=== PATIENT | male | born 1945 | race Caucasian/White ===

== ENCOUNTER → 2016-12-01 | Outpatient (CLI) | payer OTHER ==
[~2016-12-01] MED LIST: ACET1TAB84 PO; ACET325T96 PO; ASPI325T45 PO; CLX20 PO; CMD5 PO; FINA5TAB4 PO; GABA-112 PO; GABA1CAP PO; LEVO50TA PO; LEVO50TA6 PO; MGNO400 PO; MTR500 PO; NYSS5 PO; POTA10CA28 PO; RMR15 PO; RXNS2.5 PO; TAMS0.4C38 PO; ULT50X PO
== END | disposition home or self-care (01) ==
LOC: C.LABSPEC 17:52
PROVIDERS: ATTEND Physician Assistant Medical
DX: R19.7 Diarrhea, unspecified (principal); I26.99 Other pulmonary embolism without acute cor pulmonale

== ENCOUNTER → 2016-12-09 | Outpatient (CLI) | payer OTHER ==
[2016-12-09 18:11] LABS: ALT/SGPT 16 U/L (12-78); AST/SGOT 26 U/L (15-37); BLOOD UREA NITROGEN 3 mg/dl (7-18); BUN/CREATININE RATIO 4.2 (10-20); CALCIUM 7.9 mg/dl (8.5-10.1); CARBON DIOXIDE 30 mmol/L (21-32); CHLORIDE 106 mmol/L (98-107); CREATININE 0.72 mg/dl (0.60-1.40); GLUCOSE 107 mg/dl (70-99); POTASSIUM 3.6 mmol/L (3.5-5.1); SODIUM 141 mmol/L (136-145)
[2016-12-09 18:18] LABS: ALB/GLOB RATIO 0.7 (0.9-2); ALKALINE PHOSPHATASE 104 U/L (45-117); CHOLESTEROL 115 mg/dl (0-200); CHOLESTEROL/HDL RATIO 1.8; HDL CHOLESTEROL 65 mg/dl; LDL CHOLESTEROL CALCULATED 35 mg/dl; PROSTATE SPECIFIC ANTIGEN 0.154 ng/ml (0.000-4.000); TRIGLYCERIDES 74 mg/dl (0-150); VERY LOW DENSITY LIPOPROT CALC 15 mg/dl
== END | disposition home or self-care (01) ==
LOC: C.LABBFT 15:52
PROVIDERS: ATTEND Internal Medicine
DX: Z11.59 Encounter for screening for other viral diseases (principal); E78.5 Hyperlipidemia, unspecified; Z12.5 Encounter for screening for malignant neoplasm of prostate; E87.6 Hypokalemia; E87.0 Hyperosmolality and hypernatremia; E83.42 Hypomagnesemia; I26.99 Other pulmonary embolism without acute cor pulmonale

== ENCOUNTER 2017-02-09 20:42 | Inpatient (IN) | payer OTHER ==
[~2017-02-09] VITALS: Ht 172.7 cm; Wt 43.6 kg
[~2017-02-09 20:42] MED LIST changes: -ACET325T96 PO; -ASPI325T45 PO; -CMD5 PO; -GABA1CAP PO; -LEVO50TA PO; -MGNO400 PO; -MTR500 PO; -NYSS5 PO; -RMR15 PO; -RXNS2.5 PO; -TAMS0.4C38 PO; -ULT50X PO
[2017-02-09] MEDS ORDERED: CLX20 PO (21:54)
[2017-02-09] MEDS ORDERED: SODIUM CHLORIDE 0.9% 500ML 500 ML IV STA (21:56)
[2017-02-09 22:11] LABS: BASO % 0.2 %; BASO ABS # 0.02 K/uL (0-0.2); COMPLETE YES; EOS % 0.8 %; HEMATOCRIT 46.3 % (42-52); IG% 0.3 %; LYMPH % 11.1 %; LYMPH ABS # 1.01 K/uL (1.2-3.4); MEAN CELL VOLUME 101.3 fL (80-100); MEAN CORPUSCULAR HEMOGLOBIN 33.9 pg (25-34); MEAN CORPUSCULAR HGB CONC 33.5 g/dl (32-36); MEAN PLATELET VOLUME 10.2 fL (7.4-10.4); MONO % 7.6 %; PLATELET COUNT 214 K/uL (130-400); RED BLOOD COUNT 4.57 M/uL (4.7-6.1); WHITE BLOOD COUNT 9.13 K/uL (4.8-10.8)
[2017-02-09 22:19] LABS: ISTAT CARBON DIOXIDE > 40 mEq/l (24-31); ISTAT CHLORIDE 88 mEq/L (101-112); ISTAT CREATININE 0.8 mg/dl (0.6-1.3); ISTAT HEMATOCRIT 47 % (42-52); ISTAT IONIZED CALCIUM 1.05 mmol/l (1.12-1.32); ISTAT SODIUM 138 mEq/L (135-144)
[2017-02-09] MEDS ORDERED: ALBUT/IPRATROP 3MG/0.5MG NEB 3 ML VIAL INH ONE (22:30)
[2017-02-09] MEDS ORDERED: OPTIRAY 320 IV PRN (22:45)
--- NOTE | 2017-02-09 22:49 | DIAGNOSTIC IMAGING REPORT ---
CHEST ONE VIEW PORTABLE HISTORY: Atypical chest pain. COMPARISON: Chest 01/20/2016. FINDINGS: Emphysema. Right calcified paratracheal lymph node is again noted. No new focal lung consolidations to suggest pneumonia. No evidence for pulmonary edema. No pleural effusions. No pneumothorax. The heart is normal in size. Calcified granulomas within the lower lobes. IMPRESSION: No significant change compared to the prior study. No acute process. Electronically signed by: Vasile Garza M.D. 02/09/2017 10:47 PM Dictated Date/Time: 02/09/2017 10:46 PM
[2017-02-09 22:55] LABS: ALKALINE PHOSPHATASE 131 U/L (45-117); ALT/SGPT 14 U/L (12-78); BLOOD UREA NITROGEN 6 mg/dl (7-18); BUN/CREATININE RATIO 7.1 (10-20); CALCIUM 8.5 mg/dl (8.5-10.1); CARBON DIOXIDE 36 mmol/L (21-32); CHLORIDE 94 mmol/L (98-107); CREATININE 0.79 mg/dl (0.60-1.40); GLUCOSE 92 mg/dl (70-99); THYROID STIMULATING HORMONE 0.108 uIu/ml (0.300-4.500)
--- NOTE | 2017-02-09 23:03 | DIAGNOSTIC IMAGING REPORT ---
HEAD CT NONCONTRAST CT DOSE: 1074.96 mGy.cm HISTORY: Pt c/o multiple falls TECHNIQUE: Multiaxial CT images of the head were performed without the use of intravenous contrast. Automated exposure control was utilized for this study. Comparison: Head CT 03/19/2010. Findings: The paranasal sinuses and mastoid air cells are clear. The calvarium and skull base are intact. There is no mass, hematoma, midline shift, acute infarct. White matter hypodensity is nonspecific but suggestive of microvascular ischemic change. The ventricles and sulci demonstrate mild age-related involutional changes. 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 Impression: No significant change compared to the prior study. No acute intracranial abnormality. Electronically signed by: Vasile Garza M.D. 02/09/2017 11:01 PM Dictated Date/Time: 02/09/2017 10:57 PM
[2017-02-09 23:08] LABS: SODIUM 140 mmol/L (136-145)
[2017-02-09 23:13] LABS: INR 1.1 (0.9-1.1)
[2017-02-09 23:25] LABS: POTASSIUM 2.1 mmol/L (3.5-5.1)
[2017-02-09 23:30] LABS: AST/SGOT 48 U/L (15-37); CKMB/CK RATIO 0.4 (0-3.0)
[2017-02-09] MEDS ORDERED: SODIUM CHLORIDE 0.9% 1000ML 1,000 ML IV STA (23:30)
[2017-02-09 23:38] VITALS: PULSE 63; O2SAT 97
[2017-02-09] MEDS ORDERED: ONDANSETRON INJ 2 MG/ML 2 ML VIAL IV STA (23:39)
[2017-02-09] MEDS ORDERED: HYDROmorphone INJ 0.5 MG/0.5 ML SYR IV STA (23:39)
--- NOTE | 2017-02-09 23:40 | EMERGENCY ROOM VISIT NOTE ---
History Report prepared by Domonique: Kenisha Dubose Under the Supervision of: Dr. Timothy Pablo M.D. First contact with patient: 21:51 Chief Complaint: FALL Stated Complaint: FALL, WEAKNESS History of Present Illness The patient is a 71 year old male who presents to the Emergency Room with complaints of multiple episodes of falling occurring [employer]. The patient has a left AKA. He does not wear a prosthetic and is typically able to transfer himself from his wheelchair without difficulty. This morning the patient went to transfer from his bed to his wheelchair. He became weak and fell, landing on his buttocks. He crawled to the bathroom and the same thing happened in the bathroom. He states that he was just feeling weak. The patient was able to crawl from the bathroom to the hallway. His son found him lying in the hallway 8 hours later. The patient denies any injury from the falls. He denies hitting his head or LOC. He was brought to the ED by ambulance. Per EMS, the patient was having gel-like diarrhea. He has a history of C-diff. The patient has also been incontinent of urine. He denies abdominal pain and nausea. 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 A total of 10 systems reviewed and were otherwise negative. Past Medical & Surgical Medical Problems: (1) History of above knee amputation (2) Rhabdomyolysis (3) Thyroid cancer Surgical Problems: (1) H/O thyroidectomy Family History No pertinent family history stated Social History Smoking Status: Current Every Day Smoker Alcohol Use: occasionally Drug Use: none Marital Status: single Occupation Status: disabled Current/Historical Medications Scheduled Citalopram (Citalopram Hydrobromide), 20 MG PO QAM Gabapentin (Neurontin), 200 MG PO TID Levothyroxine Sodium (Levothyroxine Sodium), 50 MCG PO QAM Scheduled PRN Acetaminophen (Tylenol Arthritis Ext Rel), 650 MG PO BID PRN for Pain Allergies Coded Allergies: No Known Allergies (Verified , 01/07/17) Physical Exam Vital Signs Date Time Temp Pulse Resp B/P (MAP) Pulse Ox O2 Delivery O2 Flow Rate FiO2 02/10/17 00:59 75 02/10/17 00:24 62 24 100 Room Air 02/09/17 23:38 63 16 97 Room Air 02/09/17 23:24 63 21 94 Room Air 02/09/17 23:19 64 20 138/111 98 Room Air 02/09/17 22:30 65 18 140/63 94 Room Air 02/09/17 21:10 95 Room Air 02/09/17 21:09 66 02/09/17 21:00 36.6 64 20 131/79 94 Room Air Physical Exam GENERAL: Patient is a healthy-appearing well-nourished elderly male. HEAD: Normocephalic atraumatic EYES: Ocular movements intact pupils equal and react to light OROPHARYNX mucous membranes are moist no exudates present no erythema or edema present NECK: Supple no nuchal rigidity CHEST: Good equal expansion LUNGS: Clear and equal to auscultation CARDIAC: Normal S1 and S2 ABDOMEN: Soft nontender no guarding BACK: No CVA tenderness EXTREMITIES: AKA on the left. No pain upon palpation normal muscle strength in all groups no clubbing cyanosis or edema NEURO: Patient is following commands and answering questions appropriately. Alert and oriented x3 Cranial Nerves 2-12 grossly intact Medical Decision & Procedures ER Provider Diagnostic Interpretation: Radiology results as stated below per my review and radiologist interpretation: CHEST ONE VIEW PORTABLE HISTORY: Atypical chest pain. COMPARISON: Chest 01/20/2016. FINDINGS: Emphysema. Right calcified paratracheal lymph node is again noted. No new focal lung consolidations to suggest pneumonia. No evidence for pulmonary edema. No pleural effusions. No pneumothorax. The heart is normal in size. Calcified granulomas within the lower lobes. IMPRESSION: No significant change compared to the prior study. No acute process. Electronically signed by: Vasile Garza M.D. 02/09/2017 10:47 PM Dictated Date/Time: 02/09/2017 10:[address] CT DOSE: 1074.96 mGy.cm HISTORY: Pt c/o multiple falls TECHNIQUE: Multiaxial CT images of the head were performed without the use of intravenous contrast. Automated exposure control was utilized for this study. Comparison: Head CT 03/19/2010. Findings: The paranasal sinuses and mastoid air cells are clear. The calvarium and skull base are intact. There is no mass, hematoma, midline shift, acute infarct. White matter hypodensity is nonspecific but suggestive of microvascular ischemic change. The ventricles and sulci demonstrate mild age-related involutional changes. 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 Impression: No significant change compared to the prior study. No acute intracranial abnormality. Electronically signed by: Vasile Garza M.D. 02/09/2017 11:01 PM Dictated Date/Time: 02/09/2017 10:57 PM CHEST CTA for PULMONARY ARTERIES CT DOSE: HISTORY: Chest pain dyspnea TECHNIQUE: Multiaxial CT images of the chest were performed following the intravenous administration of contrast to evaluate the pulmonary arteries. Maximal intensity projection images were also obtained. COMPARISON STUDY: None. FINDINGS: There is a normal caliber thoracic aorta with no evidence for dissection. There is no evidence for pulmonary embolus. No pleural effusions. No pneumothorax. The liver and spleen are unremarkable. No mediastinal or hilar lymphadenopathy. The central airways are patent. The lungs are clear. Emphysematous change. Chronic granulomatous change. Moderate esophageal wall thickening with moderate debris within the lumen of the esophagus. IMPRESSION: 1. No evidence for pulmonary embolus. 2. Emphysematous change with chronic diffuse fibrotic change. 3. Moderate wall thickening of the esophagus with retained debris. Electronically signed by: Nirav Colón M.D. 02/10/2017 7:12 AM Dictated Date/Time: 02/10/2017 7:[address] SCAN OF THE CERVICAL SPINE CLINICAL HISTORY: Neck pain. COMPARISON STUDY: No priors. TECHNIQUE: CT scan of the cervical spine is performed from the skull base to the upper thoracic spine. Images are reviewed in the axial, sagittal, and coronal planes. IV contrast was not administered for this examination. CT DOSE: 445.77 mGy.cm FINDINGS: Skeletal structures: The skeletal structures are osteopenic. There is no evidence of fracture or subluxation involving the cervical spine. Vertebral body height is maintained. There is minimal anterolisthesis at C2-C3. Alignment is otherwise preserved. There is straightening of the cervical lordosis with reversal centered at C4-C5. The odontoid process and lateral masses are intact. The atlantoaxial articulation is preserved noting mild productive degenerative change. The spinous processes appear intact. Anterior osteophytes are seen from C3 through C7. There is moderate multilevel cervical spondylosis. Uncovertebral and facet arthropathy contribute to neural foraminal narrowing at most levels. This is greatest on the right at C3-C4 and C6-C7, on the left at C5-C6 and C6-C7. Intervertebral discs: There is moderate disc space narrowing seen at C3-C4, C5-C6 and C6-C7. Central canal: Small posterior disc osteophyte complexes at C3-C4, C5-C6, and C6-C7 likely contributes to multilevel acquired compromise of the central canal. Soft tissues: The prevertebral and paraspinous soft tissues are within normal limits. Cerumen is noted in the left external auditory canal. There is advanced atherosclerotic calcification of the carotid bulbs. Calvarium: The visualized calvarium at the skull base appears intact. Brain parenchyma: Partially visualized brain parenchyma the skull base is within normal limits. Sinuses and mastoids: The visualized paranasal sinuses are clear. The mastoid air cells are well pneumatized. Lung apices: Advanced emphysema and biapical scarring is present at the lung apices. Secretions/debris fills the visualized esophagus. IMPRESSION: 1. There is no evidence of fracture or subluxation involving the cervical spine. 2. Osteopenia and spondylotic change as above. 3. Advanced emphysema. Electronically signed by: Tony Hilliard M.D. 02/10/2017 7:17 AM Dictated Date/Time: 02/10/2017 7:13 AM Laboratory Results Test 02/09/17 21:23 02/09/17 22:07 02/09/17 22:23 02/09/17 22:34 Total Bilirubin 0.4 mg/dl (0.2-1) Direct Bilirubin < 0.1 mg/dl (0-0.2) Aspartate Amino Transf (AST/SGOT) 48 U/L (15-37) Alanine Aminotransferase (ALT/SGPT) 14 U/L (12-78) Alkaline Phosphatase 131 U/L (45-117) Creatine Kinase MB 5.7 ng/ml (0.5-3.6) Creatine Kinase MB Ratio 0.4 (0-3.0) Troponin I 0.023 ng/ml (0-0.045) Total Protein 6.8 gm/dl (6.4-8.2) Albumin 1.9 gm/dl (3.4-5.0) Thyroid Stimulating Hormone (TSH) 0.108 uIu/ml (0.300-4.500) Free Thyroxine 1.52 ng/dl (0.80-1.60) Bedside Hemoglobin 16.0 g/dl (14.0-18.0) Bedside Hematocrit 47 % (42-52) Bedside Sodium 138 mEq/L (135-144) Bedside Potassium 2.7 mEq/L (3.3-5.0) Bedside Chloride 88 mEq/L (101-112) Bedside Total CO2 > 40 mEq/l (24-31) Bedside Blood Urea Nitrogen 5 mg/dl (7-18) Bedside Creatinine 0.8 mg/dl (0.6-1.3) Bedside Glucose (other) 88 mg/dl (70-99) Bedside Ionized Calcium (Joao) 1.05 mmol/l (1.12-1.32) Bedside Glucose 118 mg/dl (70-99) Prothrombin Time 12.0 SECONDS (9.0-12.0) Prothromb Time International Ratio 1.1 (0.9-1.1) Test 02/10/17 00:42 Arterial Blood pH 7.34 (7.35-7.45) Arterial Blood Partial Pressure CO2 56 mmHg (35-46) Arterial Blood Partial Pressure O2 249 mm/Hg (80-95) Arterial Blood HCO3 29 mmol/L (19-24) Arterial Blood Oxygen Saturation 99.7 % (90-95) Arterial Blood Base Excess 2.5 mEq/L (-9-1.8) Arterial Blood Gas Delivery 8 L Abhinav Test POS (POS) Labs reviewed by ED physician. Medications Administered Medications (Trade) Dose Ordered Sig/Sebastian Route Start Time Stop Time Status Last Admin Dose Admin Sodium Chloride 500 ml @ 999 mls/hr Q31M STAT IV 02/09/17 21:56 02/09/17 22:26 DC 02/09/17 22:09 999 MLS/HR Albuterol/ Ipratropium (Duoneb) 12 ml ONE ONCE INH 02/09/17 22:30 02/09/17 22:31 DC 02/09/17 23:38 12 ML Sodium Chloride 1,000 ml @ 999 mls/hr Q1H1M STAT IV 02/09/17 23:30 02/10/17 00:30 DC 02/09/17 00:20 999 MLS/HR Hydromorphone HCl (Dilaudid Inj) 0.5 mg NOW STAT IV 02/09/17 23:39 6/20/17 23:40 DC 02/10/17 00:14 0.5 MG Ondansetron HCl (Zofran Inj) 4 mg NOW STAT IV 02/09/17 23:39 02/09/17 23:41 DC 02/10/17 00:14 4 MG Metoclopramide HCl (Reglan Inj) 10 mg NOW STAT IV 02/10/17 00:42 02/10/17 00:44 DC 02/10/17 02:11 10 MG Magnesium Sulfate (Magnesium Sulfate) 1 gm NOW STAT IV 02/10/17 00:57 02/10/17 00:58 DC 02/10/17 02:11 1 GM ECG Indication: weakness Rate (beats per minute): 66 Rhythm: sinus rhythm Findings: PVC, no acute ischemic change, other (old anterior septal infarct) ED Course 2150: Past medical records reviewed. The patient was evaluated in room B7. A complete history and physical examination was performed. 2156: NSS 500 ml @ 999 mls/hr IV 2230: DuoNeb 12 ml INH 2317: Potassium Chloride 80 meq PO 2330: NSS 1000 ml @ 999 mls/hr IV 2339: Zofran 4 mg IV, Dilaudid 0.5 mg IV 0042: Reglan 10 mg IV, Potassium Chloride 80 meq PO 0057: Magnesium sulfate 1 gm IV 0058: I reassessed the patient at this time and updated him on the results. I answered all pertaining questions that he had and he is in agreement with the treatment plan. 0115: I spoke with Dr. Baron. We discussed the patient's case. The patient will be evaluated by the [facility] for further management. Medical Decision Differential diagnosis: Etiologies such as metabolic, infection, hypo/hyperglycemia, electrolyte abnormalities, cardiac sources, intracerebral event, toxicologic, neurologic, as well as others were entertained. Medication Reconciliation: I attest that I have personally reviewed the patient' s current medication list. Blood Pressure Screening: Patient was found to have an elevated blood pressure and was referred to their primary care doctor for recheck and further treatment. This is a 71-year-old male who presents emergency department complaining of multiple falls at home. The patient appears to be a mild rhabdomyolysis. He was started on IV fluids and given normal saline bolus. I did talk to the hospitalist who agreed to admit the patient. Patient and family were in agreement with the treatment plan. Consults Time Called: 100 Consulting Physician: Dr. Baron Returned Call: [address] Baron. We discussed the patient's case. The patient will be evaluated by the [facility] for further management. Impression Primary Impression: Rhabdomyolysis Scribe Attestation The scribe's documentation has been prepared under my direction and personally reviewed by me in its entirety. I confirm that the note above accurately reflects all work, treatment, procedures, and medical decision making performed by me. Departure Information Dispostion Being Evaluated By Hospitalist Referrals James Magallon M.D. (PCP) Patient Instructions My [facility] Problem Qualifiers Primary Impression: Rhabdomyolysis Rhabdomyolysis type: non-traumatic Qualified Codes: M62.82 - Rhabdomyolysis
[2017-02-10] VITALS (7 sets, daily range): BP systolic 97–152; BP diastolic 55–72; PULSE 52–68; TEMP 36.4–36.7; O2SAT 95–100; Ht 172.7 cm; Wt 43.6 kg
[2017-02-10] MEDS: POTASSIUM CHLORIDE 20 MEQ/15 ML UDC PO STA ×2 (00:12→00:53)
[2017-02-10] MEDS ORDERED: POTASSIUM CHLORIDE 20 MEQ/15 ML UDC PO STA (00:42)
[2017-02-10] MEDS ORDERED: METOCLOPRAMIDE HCL INJ 5 MG/ML 2 ML VIAL IV STA (00:42)
[2017-02-10] MEDS ORDERED: MAGNESIUM SULFATE 1GM / D5W 1 GM BAG IV STA (00:57)
[2017-02-10 01:04] LABS: ARTERIAL BLD GAS O2 SATURATION 99.7 % (90-95); ARTERIAL BLOOD GAS BASE EXCESS 2.5 mEq/L (-9-1.8); ARTERIAL BLOOD GAS HCO3 29 mmol/L (19-24); ARTERIAL BLOOD GAS PO2 249 mm/Hg (80-95); ARTERIAL BLOOD GAS pH 7.34 (7.35-7.45)
[2017-02-10 01:05] LABS: ALLEN TEST POS (POS); O2 ADMINISTRATION 8 L
[2017-02-10] MEDS ORDERED: ONDANSETRON INJ 2 MG/ML 2 ML VIAL IV PRN (02:00)
[2017-02-10] MEDS ORDERED: MAGNESIUM HYDROXIDE SUSP 30 ML UDC PO PRN (02:00)
[2017-02-10] MEDS ORDERED: POTASSIUM CHLORIDE INJ 40 MEQ in SODIUM CHLORIDE 0.9% 1000ML 1,000 ML IV SCH (02:00)
[2017-02-10] MEDS ORDERED: ALUMINUM/MAGNESIUM/SIMETH (MAALOX MAX) 30 ML UDC PO PRN (02:00)
[2017-02-10] MEDS ORDERED: POLYETHYLENE (MIRALAX) 17 GM PACK PO PRN (02:00)
[2017-02-10] MEDS ORDERED: NON-FORMULARY MEDICATION (Acetaminophen (Tylenol Arthritis Ext Rel) 650 MG) PO PRN (02:00)
[2017-02-10] MEDS ORDERED: POTASSIUM CHLORIDE 10 MEQ / 100ML WTR IV ONE (02:32)
--- NOTE | 2017-02-10 03:27 | History and Physical ---
History & Physical Date & Time of Service: Feb 10, 2017 at 02:45 Chief Complaint: Fall, Weakness Primary Care Physician: James Magallon M.D. History of Present Illness Source: patient, family 71 y/o M Hx PAD - L AKA, recurrent C diff, COPD, DVT/PE, BPH, thyroid CA. Pt had fallen on the ground when transferring to the toilet at home and was found 8 hours later by his son. He reports that he has had recurrent C-diff and resultant diarrhea for over one year. EMS reported that he may have had melanotic stool as well. The pt is a poor historian, he is a chronic heavy smoker and may be noncompliant with his medications at times. He denied having pain anywhere, denied SOB, CP, N/V or fevers. He has difficulty urinating recently, possibly due to noncompliance with finasteride over the past few weeks. On arrival to the ER he was hypoxic with a saturation in the mid 80s and hypercarbic on ABG as well. Labs show severe hypokalemia and mild rhabdomyolysis. A CTA was obtained considering his history of PE. This did not reveal a PE but was consistent with COPD. Past Medical/Surgical History 1) COPD - denies an official diagnosis 2) recurrent C-diff since 01/05 3) Thyroid CA 4) PAD - L AKA 2012 - required additional amputation in 2013 as wound would not heal 5) PE/DVT 2015 6) BPH with history of retention 7) Depression Surgical Problems: (1) H/O thyroidectomy - may have sustained vocal cord or laryngeal nerve damage as he is chronically horse since surgery Status: Resolved 2) L AKA and revision - 2012,2013 Family History No pertinent family history stated States both parents from complications of diabetes Social History Smokes up to 2 packs daily > 50 years, 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 Smoking Status: Current Every Day Smoker Drug Use: none Marital Status: single Housing status: lives alone Occupational Status: disabled Immunizations History of Influenza Vaccine: Yes Influenza Vaccine Date: Oct 07, 2009 History of Tetanus Vaccine?: Yes Tetanus Immunization Date: Mar 22, 2006 History of Pneumococcal: No History of Hepatitis B Vaccine: No Multi-Drug Resistant Organisms History of MDRO: No Allergies Coded Allergies: No Known Allergies (Verified , 01/07/17) Home Medications Scheduled Citalopram (Citalopram Hydrobromide), 20 MG PO QAM Gabapentin (Neurontin), 200 MG PO TID Levothyroxine Sodium (Levothyroxine Sodium), 50 MCG PO QAM Scheduled PRN Acetaminophen (Tylenol Arthritis Ext Rel), 650 MG PO BID PRN for Pain Review of Systems Constitutional: No fever, No chills, No sweats Eyes: No worsening of vision, No eye pain ENT: No hearing loss, No unusual epistaxis, No nasal symptoms Respiratory: No cough, No sputum, No wheezing, No shortness of breath Cardiovascular: No chest pain, No orthopnea, No PND Abdomen: + diarrhea, No pain, No nausea, No vomiting Musculoskeletal: No joint pain, No muscle pain Genitourinary - Male: + dysuria, + urinary hesitancy, + urinary retention, No hematuria Neurologic: No memory loss, No paralysis, No weakness Psychiatric: + depression symptoms Endocrine: No fatigue Hematologic / Lymphatic: No abnormal bleeding/bruising Integumentary: No rash Allergic / Immunologic: No environmental allergies Physical Exam Vital Signs Date Time Temp Pulse Resp B/P (MAP) Pulse Ox O2 Delivery O2 Flow Rate FiO2 02/10/17 00:59 75 02/10/17 00:24 62 24 100 Room Air 02/09/17 23:38 63 16 97 Room Air 02/09/17 23:24 63 21 94 Room Air 02/09/17 23:19 64 20 138/111 98 Room Air 02/09/17 22:30 65 18 140/63 94 Room Air 02/09/17 21:10 95 Room Air 02/09/17 21:09 66 02/09/17 21:00 36.6 64 20 131/79 94 Room Air General Appearance: + pertinent finding (Cachectic appearing elderly male - no distress) Head: normocephalic, atraumatic Eyes: normal inspection ENT: normal ENT inspection, pharynx normal Neck: supple, no JVD Respiratory/Chest: chest non-tender, + decreased breath sounds (very poor b/l air entry - no audible crackles or wheezinf) Cardiovascular: regular rate, rhythm, no edema, no gallop Abdomen/GI: normal bowel sounds, non tender, soft Back: normal inspection, no CVA tenderness Extremities/Musculoskelatal: + pertinent finding (L AKA - stasis changes of RLE - no edema) 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, no motor/sensory deficits, alert, oriented x 3 Skin: warm/dry, no rash Diagnostics Laboratory Results Results Past 24 Hours Test 02/09/17 21:23 02/09/17 22:07 02/09/17 22:23 02/09/17 22:34 Range/Units White Blood Count 9.13 4.8-10.8 K/uL Red Blood Count 4.57 4.7-6.1 M/uL Hemoglobin 15.5 14.0-18.0 g/dL Hematocrit 46.3 42-52 % Mean Corpuscular Volume 101.3 80-100 fL Mean Corpuscular Hemoglobin 33.9 25-34 pg Mean Corpuscular Hemoglobin Concent 33.5 32-36 g/dl Platelet Count 214 130-400 K/uL Mean Platelet Volume 10.2 7.4-10.4 fL Neutrophils (%) (Auto) 80.0 % Lymphocytes (%) (Auto) 11.1 % Monocytes (%) (Auto) 7.6 % Eosinophils (%) (Auto) 0.8 % Basophils (%) (Auto) 0.2 % Neutrophils # (Auto) 7.31 1.4-6.5 K/uL Lymphocytes # (Auto) 1.01 1.2-3.4 K/uL Monocytes # (Auto) 0.69 0.11-0.59 K/uL Eosinophils # (Auto) 0.07 0-0.5 K/uL Basophils # (Auto) 0.02 0-0.2 K/uL RDW Standard Deviation 54.5 36.4-46.3 fL RDW Coefficient of Variation 14.6 11.5-14.5 % Immature Granulocyte % (Auto) 0.3 % Immature Granulocyte # (Auto) 0.03 0.00-0.02 K/uL Sodium Level 140 136-145 mmol/L Potassium Level 2.1 3.5-5.1 mmol/L Chloride Level 94 98-107 mmol/L Carbon Dioxide Level 36 21-32 mmol/L Anion Gap 9.0 13.0 16-25 mmol/L Blood Urea Nitrogen 6 7-18 mg/dl Creatinine 0.79 0.60-1.40 mg/dl Est Creatinine Clear Calc Drug Dose 51.9 ml/min Estimated GFR () 105.4 Estimated GFR (Non- 91.0 BUN/Creatinine Ratio 7.1 10-20 Random Glucose 92 70-99 mg/dl Calcium Level 8.5 8.5-10.1 mg/dl Total Bilirubin 0.4 0.2-1 mg/dl Direct Bilirubin < 0.1 0-0.2 mg/dl Aspartate Amino Transf (AST/SGOT) 48 15-37 U/L Alanine Aminotransferase (ALT/SGPT) 14 12-78 U/L Alkaline Phosphatase 131 45-117 U/L Total Creatine Kinase 1575 39-308 U/L Creatine Kinase MB 5.7 0.5-3.6 ng/ml Creatine Kinase MB Ratio 0.4 0-3.0 Troponin I 0.023 0-0.045 ng/ml Total Protein 6.8 6.4-8.2 gm/dl Albumin 1.9 3.4-5.0 gm/dl Thyroid Stimulating Hormone (TSH) 0.108 0.300-4.500 uIu/ml Bedside Hemoglobin 16.0 14.0-18.0 g/dl Bedside Hematocrit 47 42-52 % Bedside Sodium 138 135-144 mEq/L Bedside Potassium 2.7 3.3-5.0 mEq/L Bedside Chloride 88 101-112 mEq/L Bedside Total CO2 > 40 24-31 mEq/l Bedside Blood Urea Nitrogen 5 7-18 mg/dl Bedside Creatinine 0.8 0.6-1.3 mg/dl Bedside Glucose (other) 88 70-99 mg/dl Bedside Ionized Calcium (Joao) 1.05 1.12-1.32 mmol/l Bedside Glucose 118 70-99 mg/dl Prothrombin Time 12.0 9.0-12.0 SECONDS Prothromb Time International Ratio 1.1 0.9-1.1 Test 02/10/17 00:42 02/10/17 01:52 Range/Units Arterial Blood pH 7.34 7.35-7.45 Arterial Blood Partial Pressure CO2 56 35-46 mmHg Arterial Blood Partial Pressure O2 249 80-95 mm/Hg Arterial Blood HCO3 29 19-24 mmol/L Arterial Blood Oxygen Saturation 99.7 90-95 % Arterial Blood Base Excess 2.5 -9-1.8 mEq/L Arterial Blood Gas Delivery 8 L Abhinav Test POS POS Diagnostic Radiology CTA Emphysema - most prominent in upper lobes Evidence of prior granulomatous disease affecting lungs, liver, spleen Heterogenous, hypodense liver EKG Consistent with severe Hypokalemia - ST sagging/depressions and U waves Impression Assessment and Plan 71 y/o M Hx PAD - L AKA, recurrent C diff, COPD, DVT/PE, BPH, thyroid CA. Pt had fallen on the ground when transferring to the toilet at home and was found 8 hours later by his son. He reports that he has had recurrent C diff and resultant diarrhea for over one year. EMS reported that he may have had melanotic stool as well. He denies having pain anywhere, denied SOB, CP, N/V or fevers. He has difficulty urinating recently, possibly due to noncompliance with finasteride over the past few weeks. On arrival to the ER he was hypoxic with a saturation in the mid 80s and hypercarbic on ABG as well. Labs show severe hypokalemia and mild rhabdomyolysis. A CTA was consistent with COPD. 1) Severe hypokalemia - receiving K and Mg - will trend BMP and monitor pt on telemetry - this is likley the result of his diarrhea and he should remain on K supplements unti this resolves 2) Hypoxia and hypercarbia - has no complaints of SOB so that this is likely chronic - we will consult pulmonology for untreated COPD - he will likely qualify for home 02. We will start B-agonists once his K is corrected. There is no evidence of current exacerbation although we cannot accurately gauge his baseline. He is placed on an 02 protocol. 3) C diff and chronic diarrhea - recently completed a 10 day course of vanc - pending a PCR he has been placed on both Flagyl and Vanc - GI consulted due to reported Melena as well as unremitting diarrhea. 4) Rhabdo - due to fall and immobility - aggressive IVF - trend CK 5) Hypothyroidism - TSH is low - we will check a T3,4 and cont current Synthroid dose in interim. 6) Urinary retention - Pappas placed - Finasteride restarted 7) We could not accurately gauge his ETOH intake - his son stated that he drinks nightly - pt denied - provided with folate and thiamine - watch for signs of withdrawal - CT may represent early cirrhosis. 8) Cachexia - low albumin - moderate protein malnutrition - supplements provided Full code - SCDs only considering reported melena Total time for this admit including review of meds, labs, EKG, CT - discussion with pt , son and ER attending - 48 min Level of Care Telemetry Resuscitation Status FULL RESUSCITATION VTE Prophylaxis VTE Risk Assessment Done? Y/N: Yes Risk Level: Moderate Given or contraindicated: SCD's
[2017-02-10 03:37] LABS: URINE APPEARANCE CLEAR (CLEAR); URINE BILIRUBIN NEG (NEG); URINE COLOR DK YELLOW; URINE NITRITE NEG (NEG); URINE PH 6.5 (4.5-7.5); URINE SPECIFIC GRAVITY 1.026 (1.000-1.030); UROBILINOGEN NEG (NEG)
[2017-02-10 03:50] LABS: MANUAL MICROSCOPIC REQUIRED? NO; REVIEW REQ? NO
[2017-02-10] MEDS: D5NSS + 20MEQ KCL 1,000 ML IV SCH ×3 (05:17→22:12)
[2017-02-10] MEDS: METRONIDAZOLE / NSS 500 MG in PREMIXED NSS 100 ML IV SCH ×3 (05:17→22:12)
[2017-02-10] MEDS: POTASSIUM CHLR 10 MEQ / WTR 10 MEQ in PREMIXED WATER 100 ML IV SCH ×10 (05:17→21:53)
[2017-02-10] MEDS ORDERED: HEPARIN SOD 5000 UNIT/0.5 ML CARP SQ SCH (06:00)
[2017-02-10] MEDS ORDERED: LEVOTHYROXINE 50 MCG TAB PO SCH (06:30)
--- NOTE | 2017-02-10 07:14 | DIAGNOSTIC IMAGING REPORT ---
CHEST CTA for PULMONARY ARTERIES CT DOSE: HISTORY: Chest pain dyspnea TECHNIQUE: Multiaxial CT images of the chest were performed following the intravenous administration of contrast to evaluate the pulmonary arteries. Maximal intensity projection images were also obtained. COMPARISON STUDY: None. FINDINGS: There is a normal caliber thoracic aorta with no evidence for dissection. There is no evidence for pulmonary embolus. No pleural effusions. No pneumothorax. The liver and spleen are unremarkable. No mediastinal or hilar lymphadenopathy. The central airways are patent. The lungs are clear. Emphysematous change. Chronic granulomatous change. Moderate esophageal wall thickening with moderate debris within the lumen of the esophagus. IMPRESSION: 1. No evidence for pulmonary embolus. 2. Emphysematous change with chronic diffuse fibrotic change. 3. Moderate wall thickening of the esophagus with retained debris. Electronically signed by: Nirav Colón M.D. 02/10/2017 7:12 AM Dictated Date/Time: 02/10/2017 7:10 AM
--- NOTE | 2017-02-10 07:19 | DIAGNOSTIC IMAGING REPORT ---
CT SCAN OF THE CERVICAL SPINE CLINICAL HISTORY: Neck pain. COMPARISON STUDY: No priors. TECHNIQUE: CT scan of the cervical spine is performed from the skull base to the upper thoracic spine. Images are reviewed in the axial, sagittal, and coronal planes. IV contrast was not administered for this examination. CT DOSE: 445.77 mGy.cm FINDINGS: Skeletal structures: The skeletal structures are osteopenic. There is no evidence of fracture or subluxation involving the cervical spine. Vertebral body height is maintained. There is minimal anterolisthesis at C2-C3. Alignment is otherwise preserved. There is straightening of the cervical lordosis with reversal centered at C4-C5. The odontoid process and lateral masses are intact. The atlantoaxial articulation is preserved noting mild productive degenerative change. The spinous processes appear intact. Anterior osteophytes are seen from C3 through C7. There is moderate multilevel cervical spondylosis. Uncovertebral and facet arthropathy contribute to neural foraminal narrowing at most levels. This is greatest on the right at C3-C4 and C6-C7, on the left at C5-C6 and C6-C7. Intervertebral discs: There is moderate disc space narrowing seen at C3-C4, C5-C6 and C6-C7. Central canal: Small posterior disc osteophyte complexes at C3-C4, C5-C6, and C6-C7 likely contributes to multilevel acquired compromise of the central canal. Soft tissues: The prevertebral and paraspinous soft tissues are within normal limits. Cerumen is noted in the left external auditory canal. There is advanced atherosclerotic calcification of the carotid bulbs. Calvarium: The visualized calvarium at the skull base appears intact. Brain parenchyma: Partially visualized brain parenchyma the skull base is within normal limits. Sinuses and mastoids: The visualized paranasal sinuses are clear. The mastoid air cells are well pneumatized. Lung apices: Advanced emphysema and biapical scarring is present at the lung apices. Secretions/debris fills the visualized esophagus. IMPRESSION: 1. There is no evidence of fracture or subluxation involving the cervical spine. 2. Osteopenia and spondylotic change as above. 3. Advanced emphysema. Electronically signed by: Tony Hilliard M.D. 02/10/2017 7:17 AM Dictated Date/Time: 02/10/2017 7:13 AM
[2017-02-10] MEDS: BOOST VANILLA PO SCH ×4 (07:42→11:41)
[2017-02-10] MEDS: THIAMINE HCL 100 MG TAB PO SCH (07:43)
[2017-02-10] MEDS: CITALOPRAM 20 MG TAB PO SCH (07:43)
[2017-02-10] MEDS: VANCOMYCIN HCL 250 MG/5 ML SOLN PO SCH ×4 (07:43→22:12)
[2017-02-10] MEDS: RASPBERRY SYRUP 5 ML UDP PO SCH ×4 (07:44→22:12)
[2017-02-10] MEDS: GABAPENTIN 100 MG CAP PO SCH ×3 (07:44→22:14)
[2017-02-10 08:31] LABS: MAGNESIUM 2.6 mg/dl (1.8-2.4); PHOSPHORUS 2.1 mg/dl (2.5-4.9)
[2017-02-10] MEDS: FINASTERIDE 5 MG TAB PO SCH (09:13)
[2017-02-10 11:39] LABS: BASO % 0.1 %; BASO ABS # 0.01 K/uL (0-0.2); COMPLETE YES; EOS % 0.4 %; HEMATOCRIT 34.9 % (42-52); IG% 0.4 %; LYMPH % 7.4 %; MEAN CELL VOLUME 101.7 fL (80-100); MEAN CORPUSCULAR HEMOGLOBIN 33.8 pg (25-34); MEAN CORPUSCULAR HGB CONC 33.2 g/dl (32-36); MEAN PLATELET VOLUME 9.7 fL (7.4-10.4); NEUT % 84.7 %; PLATELET COUNT 183 K/uL (130-400); RED BLOOD COUNT 3.43 M/uL (4.7-6.1); WHITE BLOOD COUNT 8.16 K/uL (4.8-10.8)
[2017-02-10 12:20] LABS: BUN/CREATININE RATIO 7.6 (10-20); CREATININE 0.62 mg/dl (0.60-1.40); POTASSIUM 2.5 mmol/L (3.5-5.1)
[2017-02-10 12:30] LABS: CALCIUM 7.5 mg/dl (8.5-10.1)
[2017-02-10] MEDS ORDERED: POTASSIUM PHOS 3 MMOL/1 ML INFUSION IV STA (13:20)
[2017-02-10] MEDS ORDERED: POTASSIUM PHOSPHATE INJ 15 MMOL in SODIUM CHLORIDE 0.9% 250ML 250 ML IV SCH (13:45)
[2017-02-10] MEDS: ACETAMINOPHEN 325 MG TAB PO PRN (13:52)
[2017-02-10] MEDS ORDERED: NURSING VERBAL MED ORDER ONE (14:15)
--- NOTE | 2017-02-10 14:34 | Pulmonary Consultation ---
History General Date of Service: Feb 10, 2017. Stated Complaint: Hypokalemia, Rhabdomyolysis HPI The patient is a 71 year old male who presents to [facility] with complaints of Hypokalemia, Rhabdomyolysis. The patient's primary care provider is James Magallon M.D.. 71 y/o male admitted after fall at home and found down after 8 hours with hypokalemia, mild rhabdomyolysis and noted to have anSaO2 of 94% in the ED on ra. A CTA noted emphysema but ni signs of PE along with an ABG: He has a past medical significant for chronic tobacco use, recurrent C-diff, DVT/VA (02/10/16- taken off Coumadin 12/18/16) and other metabolic abnormalities. The patient was very fatigued during our conversation but he continues to deny shortness of breath at rest. Speaking to his son son does note progressive dyspnea on exertion over the previous year. The patient and family denied: Fever, chill, pleurisy, chest pain, productive cough, hemoptysis Work-Up: WBC: 9K (Neutro#: 7.31) PLT: 214K H/H: 15.5/46.3 K: 2.5 BUN/Cr: 6/0.79 CPK: 1575 TSH: 0.108 T3/T4: 1.67/1.52 ALB: 1.9 CO2: 36--32 AB.34/56/249/29 (8L) A-a: none EKG: widened QRS with PVC rate 76 CTA Thorax No PE Emphysema Possible retained esophageal material Diffuse mediastinal, hepatic and splenic calcifications CT Cervical Spine No acute findings CT Head non-contrast No acute changes CXR: Hyperinflation Treatment: 1) Vancomycin PO 2) Metronidazole PO Review of Systems Patient is a poor historian and unable to give an appropriate review of systems Past Medical History Past Medical History: 1. Abscess of left leg 2. Acute Arterial Occlusion 3. Acute postoperative pain 4. Anemia 5. Benign prostatic hypertrophy with urinary obstruction 6. C. difficile colitis Initially Dx: 01/2016 but recurrent 7. Chronic obstructive pulmonary disease (?) 9. Depression 10. Difficulty swallowing 11. DVT (deep venous thrombosis) Coumadin D/C 12/18/16 Dx: 01/2016 12. Hyperlipidemia 13. Hypernatremia 14. Hypokalemia 15. Hypomagnesemia 16. Hypothyroidism 17. Leukocytosis 18. Malnutrition 19. Nicotine dependence 20. Orchitis and epididymitis 21. PAD (peripheral artery disease) 22. Peripheral neuropathy 23. Pulmonary emboli Dx: 01/2016 Txt: Coumadin Coumadin D/C 12/18/16 24. Testicular pain 25. Urinary tract infection Enterococcus 26. Wound infection (leg) Enterococcus Aerogenes (Groin) Enterococcus Aerogenes 27 Squamous Cell Carcinoma Of The Tongue 28. Possible vocal cord paralysis s/p thyroidectomy Past Surgical History: 1. Left AKA with additional resection 2013 2. Leg Incision and Drainage 3. 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 Thyroidectomy Radical Neck Dissection Family History No pertinent family history stated Type 2 diabetes Social History Alcohol Use (History) Marital History - Retired From Work Smokes 1 pack of cigarettes per day Hx Tobacco Use In Past Year?: Yes Smoking Status: Current Every Day Smoker Marital status: single Housing status: lives alone Occupational Status: disabled Immunizations History of Influenza Vaccine: Yes Influenza Vaccine Date: Oct 07, 2009 History of Tetanus Vaccine?: Yes Tetanus Immunization Date: Mar 22, 2006 History of Pneumococcal: No History of Hepatitis B Vaccine: No History of MDRO History of MDRO: No Allergies Coded Allergies: No Known Allergies (Verified , 01/07/17) Current Medications Reported Home Medications Medications Dose Route/Sig Max Daily Dose Days Date Category Citalopram Hydrobromide (Citalopram) 20 Mg Tab 20 Mg PO QAM 02/09/17 Reported Levothyroxine Sodium 50 Mcg Tab 50 Mcg PO QAM 90 01/07/17 Reported Neurontin (Gabapentin) 100 Mg Cap 200 Mg PO TID 01/07/17 Reported Tylenol Arthritis Ext Rel (Acetaminophen) 650 Mg Cplt 650 Mg PO BID PRN 02/19/14 Reported Physical Physical Exam Vital Signs: Date Time Temp Pulse Resp B/P (MAP) Pulse Ox O2 Delivery O2 Flow Rate FiO2 02/10/17 12:00 Nasal Cannula 2.0 02/10/17 11:07 36.7 64 18 97/55 (69) 100 Nasal Cannula 2.0 02/10/17 08:00 Nasal Cannula 2.0 02/10/17 07:16 36.4 65 18 102/58 (73) 100 Room Air 02/10/17 04:00 Nasal Cannula 2.0 02/10/17 03:10 36.5 52 18 152/72 100 Nasal Cannula 2.0 02/10/17 03:10 36.6 81 24 102/49 100 02/10/17 00:59 75 02/10/17 00:24 62 24 100 Room Air 02/09/17 23:38 63 16 97 Room Air 02/09/17 23:24 63 21 94 Room Air 02/09/17 23:19 64 20 138/111 98 Room Air 02/09/17 22:30 65 18 140/63 94 Room Air 02/09/17 21:10 95 Room Air 02/09/17 21:09 66 02/09/17 21:00 36.6 64 20 131/79 94 Room Air General Appearance: mild distress, cachetic Head: ATRAUMATIC Eyes: PERRLA, NO DISCHARGE, EOMI ENT: NORMAL EAR EXAM, NORMAL NASAL EXAM, NORMAL MOUTH EXAM, NORMAL THROAT EXAM Neck: NORMAL RANGE OF MOTION, NO TENDERNESS, TRACHEA MIDLINE, NO STRIDOR Respiratory: other (decreased breath sounds bilaterally but no active wheezing) Cardiovasular: REGULAR RATE/RHYTHM, NORMAL S1S2, NO M/G/R, NO MURMUR Abdomen: NON TENDER, NORMAL BOWEL SOUNDS, NO REBOUND, NO MASSES, NO GUARDING Genitourinary - Male: EXTERNAL GENITALIA NORMAL Back: NORMAL INSPECTION, NO MIDLINE TENDERNESS, NO CVA TENDERNESS, NO PARAVERTEBRAL TTP Upper Extremities: NO EDEMA, NO DEFORMITY, NORMAL ROM Lower Extremities: other (left-sided AKA approximately fdc up the humerus no signs of breakdown at the previous resection) Pulses: carotid (R) (1+), carotid (L) (1+), dorsalis pedis (L) (1+) Neuro: lethargic Reflexes: biceps (R) (2+), bicpes (L) (2+), achilles (R) (2+) Babinski Testing: right (equivocal), left (equivocal) Psychiatric: flat affect Diagnostics Labs Results Past 24 Hours Test 02/09/17 21:23 02/09/17 22:07 02/09/17 22:23 02/09/17 22:34 Range/Units White Blood Count 9.13 4.8-10.8 K/uL Red Blood Count 4.57 4.7-6.1 M/uL Hemoglobin 15.5 14.0-18.0 g/dL Hematocrit 46.3 42-52 % Mean Corpuscular Volume 101.3 80-100 fL Mean Corpuscular Hemoglobin 33.9 25-34 pg Mean Corpuscular Hemoglobin Concent 33.5 32-36 g/dl Platelet Count 214 130-400 K/uL Mean Platelet Volume 10.2 7.4-10.4 fL Neutrophils (%) (Auto) 80.0 % Lymphocytes (%) (Auto) 11.1 % Monocytes (%) (Auto) 7.6 % Eosinophils (%) (Auto) 0.8 % Basophils (%) (Auto) 0.2 % Neutrophils # (Auto) 7.31 1.4-6.5 K/uL Lymphocytes # (Auto) 1.01 1.2-3.4 K/uL Monocytes # (Auto) 0.69 0.11-0.59 K/uL Eosinophils # (Auto) 0.07 0-0.5 K/uL Basophils # (Auto) 0.02 0-0.2 K/uL RDW Standard Deviation 54.5 36.4-46.3 fL RDW Coefficient of Variation 14.6 11.5-14.5 % Immature Granulocyte % (Auto) 0.3 % Immature Granulocyte # (Auto) 0.03 0.00-0.02 K/uL Sodium Level 140 136-145 mmol/L Potassium Level 2.1 3.5-5.1 mmol/L Chloride Level 94 98-107 mmol/L Carbon Dioxide Level 36 21-32 mmol/L Anion Gap 9.0 13.0 16-25 mmol/L Blood Urea Nitrogen 6 7-18 mg/dl Creatinine 0.79 0.60-1.40 mg/dl Est Creatinine Clear Calc Drug Dose 51.9 ml/min Estimated GFR () 105.4 Estimated GFR (Non- 91.0 BUN/Creatinine Ratio 7.1 10-20 Random Glucose 92 70-99 mg/dl Calcium Level 8.5 8.5-10.1 mg/dl Total Bilirubin 0.4 0.2-1 mg/dl Direct Bilirubin < 0.1 0-0.2 mg/dl Aspartate Amino Transf (AST/SGOT) 48 15-37 U/L Alanine Aminotransferase (ALT/SGPT) 14 12-78 U/L Alkaline Phosphatase 131 45-117 U/L Total Creatine Kinase 1575 39-308 U/L Creatine Kinase MB 5.7 0.5-3.6 ng/ml Creatine Kinase MB Ratio 0.4 0-3.0 Troponin I 0.023 0-0.045 ng/ml Total Protein 6.8 6.4-8.2 gm/dl Albumin 1.9 3.4-5.0 gm/dl Thyroid Stimulating Hormone (TSH) 0.108 0.300-4.500 uIu/ml Free Thyroxine 1.52 0.80-1.60 ng/dl Bedside Hemoglobin 16.0 14.0-18.0 g/dl Bedside Hematocrit 47 42-52 % Bedside Sodium 138 135-144 mEq/L Bedside Potassium 2.7 3.3-5.0 mEq/L Bedside Chloride 88 101-112 mEq/L Bedside Total CO2 > 40 24-31 mEq/l Bedside Blood Urea Nitrogen 5 7-18 mg/dl Bedside Creatinine 0.8 0.6-1.3 mg/dl Bedside Glucose (other) 88 70-99 mg/dl Bedside Ionized Calcium (Joao) 1.05 1.12-1.32 mmol/l Bedside Glucose 118 70-99 mg/dl Prothrombin Time 12.0 9.0-12.0 SECONDS Prothromb Time International Ratio 1.1 0.9-1.1 Test 02/10/17 00:42 02/10/17 03:05 02/10/17 07:27 02/10/17 11:01 Range/Units Arterial Blood pH 7.34 7.35-7.45 Arterial Blood Partial Pressure CO2 56 35-46 mmHg Arterial Blood Partial Pressure O2 249 80-95 mm/Hg Arterial Blood HCO3 29 19-24 mmol/L Arterial Blood Oxygen Saturation 99.7 90-95 % Arterial Blood Base Excess 2.5 -9-1.8 mEq/L Arterial Blood Gas Delivery 8 L Abhinav Test POS POS Urine Color DK YELLOW Urine Appearance CLEAR CLEAR Urine pH 6.5 4.5-7.5 Urine Specific Ledger 1.026 1.000-1.030 Urine Protein NEG NEG Urine Glucose (UA) NEG NEG Urine Ketones NEG NEG Urine Occult Blood NEG NEG Urine Nitrite NEG NEG Urine Bilirubin NEG NEG Urine Urobilinogen NEG NEG Urine Leukocyte Esterase NEG NEG Hemoglobin 12.4 11.6 14.0-18.0 g/dL Phosphorus Level 2.1 2.5-4.9 mg/dl Magnesium Level 2.6 1.8-2.4 mg/dl Total Creatine Kinase 1382 1411 39-308 U/L White Blood Count 8.16 4.8-10.8 K/uL Red Blood Count 3.43 4.7-6.1 M/uL Hematocrit 34.9 42-52 % Mean Corpuscular Volume 101.7 80-100 fL Mean Corpuscular Hemoglobin 33.8 25-34 pg Mean Corpuscular Hemoglobin Concent 33.2 32-36 g/dl Platelet Count 183 130-400 K/uL Mean Platelet Volume 9.7 7.4-10.4 fL Neutrophils (%) (Auto) 84.7 % Lymphocytes (%) (Auto) 7.4 % Monocytes (%) (Auto) 7.0 % Eosinophils (%) (Auto) 0.4 % Basophils (%) (Auto) 0.1 % Neutrophils # (Auto) 6.92 1.4-6.5 K/uL Lymphocytes # (Auto) 0.60 1.2-3.4 K/uL Monocytes # (Auto) 0.57 0.11-0.59 K/uL Eosinophils # (Auto) 0.03 0-0.5 K/uL Basophils # (Auto) 0.01 0-0.2 K/uL RDW Standard Deviation 55.0 36.4-46.3 fL RDW Coefficient of Variation 15.0 11.5-14.5 % Immature Granulocyte % (Auto) 0.4 % Immature Granulocyte # (Auto) 0.03 0.00-0.02 K/uL Sodium Level 144 136-145 mmol/L Potassium Level 2.5 3.5-5.1 mmol/L Chloride Level 104 98-107 mmol/L Carbon Dioxide Level 32 21-32 mmol/L Anion Gap 7.0 3-11 mmol/L Blood Urea Nitrogen 5 7-18 mg/dl Creatinine 0.62 0.60-1.40 mg/dl Est Creatinine Clear Calc Drug Dose 66.6 ml/min Estimated GFR () 116.5 Estimated GFR (Non- 100.5 BUN/Creatinine Ratio 7.6 10-20 Random Glucose 145 70-99 mg/dl Calcium Level 7.5 8.5-10.1 mg/dl Free Triiodothyronine 1.67 2.30-4.20 pg/ml Test 02/10/17 13:04 Range/Units Vitamin B12 Level 658 211-911 pg/mL Folate > 24.00 >5.38 ng/mL Diagnostic Radiology CTA Thorax No PE Emphysema Possible retained esophageal material Diffuse mediastinal, hepatic and splenic calcifications CT Cervical Spine No acute findings CT Head non-contrast No acute changes CXR: Hyperinflation EKG EKG: widened QRS with PVC rate 76 Impression Assessment and Plan 71-year-old gentleman admitted after fall and mild drop in his SaO2: #1 Hypoxemia: Patient most likely at his baseline respiratory status. With his long history of smoking is most likely has underlying COPD. I will initiate profile, and nebulizer therapy as I do not believe this patient had perform MDI techniques. I've spoken to the family and patient at length and described a 68 week trial on these nebulizers and follow up as an outpatient.
[2017-02-10] MEDS ORDERED: ALBUTEROL 0.083% NEBU SOLN 3 ML VIAL INH PRN (14:45)
--- NOTE | 2017-02-10 14:51 | Progress Note ---
Progress Note Date of Service Feb 10, 2017. (Krystyna Yung ., BRUNO) Progress Note Patient admitted after midnight. Patient seen and examined by me. Patient plans of weakness, fatigue, diarrhea, dysphagia, and odynophagia. He states that he is had dysphagia and odynophagia since his thyroid was removed about 13 years ago. He denies ever seeing GI. He also been having chronic diarrhea for the last year and has a history of recurrent C. difficile infections. He admits to weight loss in the last year. Per EMS report, the patient had melanotic stools. Patient also notes that he has had history of intermittent urinary retention from his prostate problems. The patient denies fevers, chills , sweats, chest pain, palpitations, claudication, cough, wheezing, shortness of breath, nausea, vomiting, abdominal pain, dysuria, hematuria, paralysis, numbness and tingling. Patient appears cachectic and chronically ill on physical exam. Patient has white exudate and stringy mucus in the pharynx. Patient has decreased breath sounds throughout. Chronic venous stasis changes in the right lower extremity. Patient has left [id number] amputation. Physical exam otherwise unremarkable. A/P: Hypokalemia--improving -Potassium 2.5 this morning -Additional 40 mEq potassium chloride IV ordered -Recheck PRP at 1600 -Magnesium elevated at 2.6 Hypophosphatemia -Phosphorus 2.1 -Given K-Phos 15 mmol IV. Recheck as above Acute anemia, presumably secondary to blood loss/melanotic stools -Hemoglobin dropped to 11.6 from 15.5 -Fecal occult blood pending -GI consulted, appreciate recs -Vitamin B12 and folate within normal limits Hypoxia and hypercarbia--stable -O2 by protocol -Pulmonology consulted, appreciate recs Recurrent C. difficile and chronic diarrhea--ongoing -C. difficile pending -Flagyl and vanc -GI consult Dysphagia/odynophagia - Speech therapy evaluate and treat Rhabdomyolysis--ongoing -CK up to 1411 from 1382 -Continue IVF History of alcohol abuse--states he hasn't drank in 5-6 weeks -Continue thiamine supplement -Added folate supplement History of hypothyroidism -TSH low -Free T4 WNL, free T3 low -Decrease Synthroid to 25 mcg 4 times a week, 50 mcg 3 times a week Urinary retention -Pappas placed -Finasteride 5 mg PO qd Cachexia, severe protein calorie malnutrition -Continue Boost (Krystyna Yung ., BRUNO) Reviewed: Pt Seen/Exam by Me (Emerald Cavanaugh MD) History Physician Exterior Work Helper Supervision Note: I interviewed and examined the patient. Discussed with DB Yung and agree with findings and plan as documented in the note. Any exceptions or clarifications are listed here: Pt reports a lot of weight loss but cannot quantify an amount for me. He appears quite ill and older than stated age. No loose stools since admission. No abd pain. He denies any other falls than the one that brought him here this admission. Repeat potassium still quite low and more KCl IV was ordered. NAD, cachectic-appearing Edentulous, speech difficult to understand due to this Lungs diminished throughout with faint wheeze RRR no mgr Abd scaphoid, + BS, soft NT ND Ext left AKA, right sarcopenia and no edema, trophic appearing distal foot/leg 71 yo male here with recurrent C. diff, weight loss, cachexia leading to weakness and fall. With rhabdomyolysis here and profound hypokalemia secondary to GI losses plus poor po intake likely. lytes and repeat in AM -Also with esophageal wall thickening on imaging and h/o weight loss, reported alcohol abuse--> could have esophageal CA -Appreciate GI consultation--> check C. diff, continue po Vanco and IV Flagyl, consider EGD but pt seems to be declining -Speech Tx consult and possible Barium swallow -replace Documented By: Emerald Cavanaugh (Emerald Cavanaugh MD)
[2017-02-10] MEDS ORDERED: LEVALBUTEROL/IPRATROPIUM NEB INH SCH (15:00)
[2017-02-10 17:20] LABS: BUN/CREATININE RATIO 7.1 (10-20); CALCIUM 7.2 mg/dl (8.5-10.1); CREATININE 0.57 mg/dl (0.60-1.40); POTASSIUM 3.1 mmol/L (3.5-5.1)
--- NOTE | 2017-02-10 18:42 | GASTROINTESTINAL CONSULTATION ---
DATE OF CONSULTATION: 02/10/2017 ATTENDING PHYSICIAN: Dr. Cavanaugh. CONSULTING PHYSICIAN: Dr. Marcial. REASON FOR CONSULTATION: Recurrent C. diff, melena, diarrhea and dysphagia. HISTORY OF PRESENT ILLNESS: Rickie Mahmood is a 71-year-old male with a significant past medical history that includes alcohol abuse as well as diarrhea for the past year. Per the patient's record, he has had recurrent C. diff colitis as he was diagnosed in December 2015 as well as a recurrent episode in January 2016 and most recently positive on 12/01/2016. He presented to the Department of Emergency Medicine on February 10 after he was found down by his son after he had fallen at home. The patient is a poor historian and is unable to provide significant detail to his medical history. Per the patient's medical record he is a chronic alcoholic, though he previously told another medical professional that he has not drank for 5-6 weeks. At the time that I saw the patient, he denied having diarrhea at this time. He also denied any trouble swallowing. Consult was placed for speech pathology, though they have not evaluated the patient as of this time. The patient denied any hematemesis, melena or hematochezia. His arrival H&H was 15.5 and 46.3 and it is currently 11.6 and 34.9. His MCV is elevated at 101.7, which would be consistent with macrocytic anemia from alcohol abuse. His PT and INR were unremarkable. His liver panel showed a slightly elevated AST of 48 and ALT of 14 and alkaline phosphatase of 131, CPK of 1575, which has subsequently decreased to 1411. The patient denied any further complaints at this time. PAST MEDICAL HISTORY: Includes chronic alcohol abuse, macrocytic anemia, BPH, C. diff colitis, COPD, depression, DVT, difficulty swallowing, hyperlipidemia, hypernatremia, hypokalemia, hypothyroidism, tobacco abuse, epididymitis, peripheral neuropathy, PE, testicular pain, UTI, abscess left leg, squamous cell carcinoma of the tongue. 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 ALLERGIES: None. MEDICATIONS: At present Synthroid 50 mcg p.o. Wednesday, Wednesday and Wednesday; Synthroid 25 mcg p.o. Wednesday, Wednesday, , Wednesday; folic acid 1 mg p.o. q.a.m., albuterol via nebulizer every 6 hours as needed, Brovana via inhaler twice daily p.r.n., Celexa 20 mg p.o. q.a.m., Neurontin 200 mg p.o. t.i.d., thiamine 100 mg p.o. q.a.m., vancomycin 250 mg p.o. q.i.d., Proscar 5 mg p.o. q.a.m., Flagyl 500 mg IV q. 8 hours, Tylenol 650 mg p.o. q. 4 p.r.n. pain or fever, Maalox 15 mL p.o. q. 4 p.r.n. dyspepsia, Zofran 4 mg IV q. 6 p.r.n. nausea, MiraLax 17 grams p.o. daily p.r.n. constipation. FAMILY HISTORY: Negative for GI malignancy. SOCIAL HISTORY: Tobacco abuse, chronic alcoholism. REVIEW OF SYSTEMS: Unobtainable as the patient is a poor historian. PHYSICAL EXAMINATION: VITAL SIGNS: Temp 36.5, pulse 61, respirations 20, blood pressure 106/55, pulse ox 100% on 2 liters via nasal cannula. GENERAL: Chronic ill appearing, cachectic, no acute distress. HEAD: Normocephalic, atraumatic. EYES: Pupils are equally round. Sclerae nonicteric. Oropharynx clear. NECK: Soft and supple. CHEST: Decreased breath sounds bilateral bases. CARDIOVASCULAR SYSTEM: Regular rate and rhythm. ABDOMEN: Soft, nontender, nondistended. Positive bowel sounds. EXTREMITIES: No clubbing. Has a left AKA. LABORATORY STUDIES: Reviewed in the HPI. RADIOGRAPHIC STUDIES: Include a cervical spine CT which was unremarkable. A CT of the chest which showed no evidence of PE. There was emphysematous change with chronic diffuse fibrotic change and moderate wall thickening of the esophagus with retained debris. IMPRESSION: A 71-year-old male who presented with rhabdomyolysis after being found down by his son with reported diarrhea though none since his admission and history of recurrent Clostridium difficile with reported dysphagia and abnormal CT of the chest showing retained debris in the distal esophagus. PLAN: 1. In regards to the patient's recurrent C. diff, currently the patient is on p.o. vancomycin 250 mg p.o. q.i.d. as well as Flagyl 500 mg IV q.8 hours, though we do not have any positive C. diff testing as of this time. I would recommend that the patient have a stool study done to check for C. diff and if it is positive to continue treatment, though there are many causes of diarrhea and he has not had any episodes of diarrhea here. 2. In regards to his dysphagia, I would recommend that the patient be placed on Protonix 40 mg p.o. daily and I will start that today. I discussed with him whether he has ever undergone an upper endoscopy and he stated that he has not and states that he is not interested in having this performed while he is hospitalized here. Consideration could be given to performing a barium swallow, although the patient is not complaining of difficulty swallowing to me, he is a poor historian. Speech pathology has been consulted. I will await their input make, I will make further recommendations at that time. Once again, thank you for allowing me to participate in the care of this patient. If you have any further questions, please do not hesitate in contacting me. JAQUELIN
--- NOTE | 2017-02-10 18:48 | GASTROINTESTINAL CONSULTATION ---
DATE OF CONSULTATION: 02/10/2017 IMPRESSION: A 71-year-old male who presented with rhabdomyolysis after being found down by his son with reported diarrhea though none since his admission and history of recurrent Clostridium difficile with reported dysphagia and abnormal CT of the chest showing retained debris in the distal esophagus. PLAN: 1. In regards to the patient's recurrent C. diff, currently the patient is on p.o. vancomycin 250 mg p.o. q.i.d. as well as Flagyl 500 mg IV q.8 hours, though we do not have any positive C. diff testing as of this time. I would recommend that the patient have a stool study done to check for C. diff and if it is positive to continue treatment, though there are many causes of diarrhea and he has not had any episodes of diarrhea here. 2. In regards to his dysphagia, I would recommend that the patient be placed on Protonix 40 mg p.o. daily and I will start that today. I discussed with him whether he has ever undergone an upper endoscopy and he stated that he has not and states that he is not interested in having this performed while he is hospitalized here. Consideration could be given to performing a barium swallow, although the patient is not complaining of difficulty swallowing to me, he is a poor historian. Speech pathology has been consulted. I will await their input make, I will make further recommendations at that time. Once again, thank you for allowing me to participate in the care of this patient. If you have any further questions, please do not hesitate in contacting me.
[2017-02-10] MEDS: LEVALBUTEROL 1.25MG/0.5ML NEB INH SCH (19:05)
[2017-02-10] MEDS: IPRATROPIUM BROMIDE NEB SOLN 0.02% 2.5 ML VIAL INH SCH (19:10)
[2017-02-10] MEDS: ARFORMOTEROL TART 15MCG/2ML VIAL INH SCH (19:35)
[2017-02-11] VITALS (16 sets, daily range): BP systolic 107–146; BP diastolic 66–79; PULSE 62–76; TEMP 36.3–36.9; O2SAT 90–97
[2017-02-11] MEDS: POTASSIUM CHLR 10 MEQ / WTR 10 MEQ in PREMIXED WATER 100 ML IV SCH ×2 (00:05→01:29)
[2017-02-11] MEDS: IPRATROPIUM BROMIDE NEB SOLN 0.02% 2.5 ML VIAL INH SCH ×4 (02:16→19:42)
[2017-02-11] MEDS: LEVALBUTEROL 1.25MG/0.5ML NEB INH SCH ×4 (02:17→19:42)
[2017-02-11] MEDS: METRONIDAZOLE / NSS 500 MG in PREMIXED NSS 100 ML IV SCH ×3 (05:52→22:38)
[2017-02-11] MEDS: LEVOTHYROXINE 25 MCG TAB PO SCH (05:53)
[2017-02-11] MEDS: ARFORMOTEROL TART 15MCG/2ML VIAL INH SCH ×2 (07:20→19:42)
[2017-02-11 07:34] LABS: MEAN CELL VOLUME 102.5 fL (80-100); MEAN CORPUSCULAR HEMOGLOBIN 32.1 pg (25-34); MEAN CORPUSCULAR HGB CONC 31.4 g/dl (32-36); MEAN PLATELET VOLUME 9.5 fL (7.4-10.4); PLATELET COUNT 177 K/uL (130-400); RED BLOOD COUNT 3.61 M/uL (4.7-6.1); WHITE BLOOD COUNT 9.89 K/uL (4.8-10.8)
[2017-02-11] MEDS: RASPBERRY SYRUP 5 ML UDP PO SCH ×4 (07:55→22:01)
[2017-02-11] MEDS: BOOST PLUS VANILLA PO SCH ×6 (07:55→17:00)
[2017-02-11] MEDS: VANCOMYCIN HCL 250 MG/5 ML SOLN PO SCH ×4 (07:55→22:01)
[2017-02-11] MEDS: CITALOPRAM 20 MG TAB PO SCH (07:56)
[2017-02-11] MEDS: PANTOprazole SOD 40 MG TAB PO SCH (07:56)
[2017-02-11] MEDS: THIAMINE HCL 100 MG TAB PO SCH (07:56)
[2017-02-11] MEDS: GABAPENTIN 100 MG CAP PO SCH ×3 (07:56→22:01)
[2017-02-11 08:07] LABS: BUN/CREATININE RATIO 4.4 (10-20); CREATININE 0.52 mg/dl (0.60-1.40); MAGNESIUM 1.9 mg/dl (1.8-2.4); POTASSIUM 3.5 mmol/L (3.5-5.1)
[2017-02-11 08:28] LABS: PHOSPHORUS 1.2 mg/dl (2.5-4.9)
[2017-02-11 08:55] LABS: CALCIUM 7.2 mg/dl (8.5-10.1)
[2017-02-11] MEDS ORDERED: POTASSIUM PHOS 3 MMOL/1 ML INFUSION IV STA (08:56)
[2017-02-11] MEDS: FINASTERIDE 5 MG TAB PO SCH (09:02)
[2017-02-11] MEDS ORDERED: POTASSIUM PHOSPHATE INJ 21 MMOL in SODIUM CHLORIDE 0.9% 500ML 500 ML IV SCH (09:30)
--- NOTE | 2017-02-11 09:58 | Hospitalist Progress Note ---
Hospitalist Progress Note Date of Service Feb 11, 2017. (Krystyna Yung ., PA-C) Subjective Pt evaluation today including: conversation w/ patient, physical exam, chart review, lab review, review of inpatient medication list Pain: None PO Intake: Poor appetite Voiding: andino catheter in place Patient is difficult to understand but seems to deny any complaints. He does note that he had some diarrhea this morning. Per nursing, the patient has had a poor appetite and did not want breakfast. He seemed to be aspirating on his nectar thickened liquids, but he tolerated pudding well. Despite this, the patient himself denies dysphagia or odynophagia. Nursing also reports that the patient seemed very lethargic this morning and he had soiled himself in the bed. The patient denies fevers, chills, sweats, chest pain, palpitations, claudication, cough, wheezing, shortness of breath, nausea, vomiting, abdominal pain, dysuria, hematuria, urinary retention, paralysis, weakness, numbness and tingling. Additional Comments: See HPI for pertinent positives and negatives. All other systems reviewed and negative. (Krystyna Yung ., PA-C) Objective Vital Signs Date Time Temp Pulse Resp B/P (MAP) Pulse Ox O2 Delivery O2 Flow Rate FiO2 02/11/17 08:43 65 16 92 Room Air 02/11/17 08:00 Nasal Cannula 2.0 02/11/17 07:04 36.5 62 18 114/69 (84) 97 Room Air 02/11/17 04:05 Room Air 02/11/17 03:50 36.4 67 18 107/66 (80) 92 Room Air 02/11/17 02:17 70 18 93 Room Air 02/11/17 00:05 36.3 66 16 119/70 (86) 93 Room Air 02/11/17 00:05 Room Air 02/10/17 20:09 36.4 68 16 115/65 (82) 98 Room Air 02/10/17 20:00 Room Air 02/10/17 19:15 67 18 95 Room Air 02/10/17 16:58 96 Room Air 02/10/17 16:00 Room Air 02/10/17 15:02 36.5 61 20 106/55 (72) 100 Nasal Cannula 2.0 02/10/17 12:00 Nasal Cannula 2.0 02/10/17 11:07 36.7 64 18 97/55 (69) 100 Nasal Cannula 2.0 (Krystyna Yung .BRUNO) Physical Exam General Appearance: no apparent distress, + cachetic, + pertinent finding ( somewhat lethargic but answering questions) Eyes: normal inspection, PERRL, EOMI ENT: normal ENT inspection, hearing grossly normal, + pertinent finding (white exudate posterior pharynx, no teeth makes his speech difficult to understand) Neck: supple, no JVD, trachea midline Respiratory/Chest: normal breath sounds, no respiratory distress, + wheezing Cardiovascular: regular rate, rhythm, no gallop, no murmur Abdomen: normal bowel sounds, non tender, soft Extremities: non-tender, + pertinent finding (L AKA, RLE venous stasis changes) Neurologic/Psychiatric: normal mood/affect, oriented x 3, + pertinent finding ( awake but seems slighty lethargic) Skin: normal color, warm/dry, no rash (Krystyna Yung ., ANIBALC) Laboratory Results Last 24 Hours Test 02/10/17 11:01 02/10/17 13:04 02/10/17 16:27 02/11/17 07:13 White Blood Count 8.16 K/uL 9.89 K/uL Red Blood Count 3.43 M/uL 3.61 M/uL Hemoglobin 11.6 g/dL 11.6 g/dL Hematocrit 34.9 % 37.0 % Mean Corpuscular Volume 101.7 fL 102.5 fL Mean Corpuscular Hemoglobin 33.8 pg 32.1 pg Mean Corpuscular Hemoglobin Concent 33.2 g/dl 31.4 g/dl Platelet Count 183 K/uL 177 K/uL Mean Platelet Volume 9.7 fL 9.5 fL Neutrophils (%) (Auto) 84.7 % Lymphocytes (%) (Auto) 7.4 % Monocytes (%) (Auto) 7.0 % Eosinophils (%) (Auto) 0.4 % Basophils (%) (Auto) 0.1 % Neutrophils # (Auto) 6.92 K/uL Lymphocytes # (Auto) 0.60 K/uL Monocytes # (Auto) 0.57 K/uL Eosinophils # (Auto) 0.03 K/uL Basophils # (Auto) 0.01 K/uL RDW Standard Deviation 55.0 fL 56.3 fL RDW Coefficient of Variation 15.0 % 15.0 % Immature Granulocyte % (Auto) 0.4 % Immature Granulocyte # (Auto) 0.03 K/uL Sodium Level 144 mmol/L 143 mmol/L 146 mmol/L Potassium Level 2.5 mmol/L 3.1 mmol/L 3.5 mmol/L Chloride Level 104 mmol/L 105 mmol/L 111 mmol/L Carbon Dioxide Level 32 mmol/L 30 mmol/L 27 mmol/L Anion Gap 7.0 mmol/L 8.0 mmol/L 8.0 mmol/L Blood Urea Nitrogen 5 mg/dl 4 mg/dl 2 mg/dl Creatinine 0.62 mg/dl 0.57 mg/dl 0.52 mg/dl Est Creatinine Clear Calc Drug Dose 66.6 ml/min 72.5 ml/min 80.4 ml/min Estimated GFR () 116.5 120.6 125.2 Estimated GFR (Non- 100.5 104.0 108.0 BUN/Creatinine Ratio 7.6 7.1 4.4 Random Glucose 145 mg/dl 110 mg/dl 103 mg/dl Calcium Level 7.5 mg/dl 7.2 mg/dl 7.2 mg/dl Total Creatine Kinase 1411 U/L Free Triiodothyronine 1.67 pg/ml Vitamin B12 Level 658 pg/mL Folate > 24.00 ng/mL Phosphorus Level 1.2 mg/dl Magnesium Level 1.9 mg/dl Test 02/11/17 08:00 Stool Occult Blood NEGATIVE (Krystyna Yung ., BRUNO) Assessment and Plan 71 y/o male with a history of recurrent C. diff colitis, COPD, h/o alcoholism, thyroid cancer s/p thyroidectomy and hypothyroidism, BPH, depression, h/o DVT/PE , and L AKA who presents following a fall. He was on the ground for about 8 hours until he was found by his son. The patient was found to have severe hypokalemia on arrival as well as hypoxia and hypercarbia. Hypokalemia--improving/resolved -Admitted to telemetry. Pt was mostly in SR overnight with HR in 60s, but around 1700 he developed a 14 beat run of v-tach. Last echo 2002, will repeat to assess EF. -Potassium 2.1 on arrival. Patient received total 60 mEq KCl IV upon admission/ during his first night. -Potassium improved to 2.5 the following morning, was given another 40 mEq IV -Now up to 3.5 on 02/11 after receiving another 40 mEq last evening. -Recheck PRP at 1400 -Magnesium stable at 1.9 on 02/11 Hypophosphatemia--worsening -Phosphorus 2.1 on 02/10 -Given K-Phos 15 mmol IV -Phosphorus 1.2 on 02/11 -Given another 21 mmol K-Phos IV. Recheck at 1400 Acute anemia, presumably secondary to blood loss/melanotic stools--stable -Hemoglobin dropped to 11.6 on 02/10 from 15.5 -Hgb stable, still at 11.6 on 02/11 -Fecal occult blood pending -GI consulted, appreciate recs: pt declined endoscopy at that time. Recommend starting on Protonix 40 mg PO qd. -Vitamin B12 and folate within normal limits -Pt now states he is agreeable to endoscopy -Strict NPO, schedule EGD later today Hypoxia and hypercarbia, h/o COPD--stable -O2 by protocol -Pulmonology consulted, appreciate recs: Started on Brovana and Xopenex/ Atrovent nebs Recurrent C. difficile and chronic diarrhea--ongoing -C. difficile pending -Continue IV Flagyl and PO vanc for now pending C. diff -GI on board Dysphagia/odynophagia - Speech therapy evaluate and treat: pureed diet with nectar thick liquids, no straw, aspiration precautions, sit fully upright for meals -GI: consider barium swallow Rhabdomyolysis--ongoing -CK up to 1453 from 1411 -Sodium and glucose elevated, change IVF to 1/2NSS + 20 KCl at 125 cc/hr History of alcohol abuse--states he hasn't drank in 5-6 weeks -Continue thiamine 100 mg PO qd -Continue folate 1 mg PO qd H/o thyroid cancer s/p thyroidectomy, hypothyroidism -TSH low -Free T4 WNL, free T3 low -Decrease Synthroid to 25 mcg 4 times a week, 50 mcg 3 times a week Urinary retention -Andino placed -Finasteride 5 mg PO qd Depression -Continue citalopram 20 mg PO qd Cachexia, severe protein calorie malnutrition -Continue Boost DVT prophylaxis -Heparin 5000 units SC q8h Code Status -Level I, FULL RESUSCITATION STATUS (Krystyna Yung ., PABrayden) Reviewed: Pt Seen/Exam by Me (Emerald Cavanaugh MD) History Physician At Risk Paraprofessional Supervision Note: I interviewed and examined the patient. Discussed with DB Yung and agree with findings and plan as documented in the note. Any exceptions or clarifications are listed here: Lytes replaced today and much improved on repeat testing. Had EGD with esophageal stenosis benign appearing, dilated with scope, with moderate gastritis biopsied as well. C. diff positive again and sitting in pile of own loose stool when I saw him. Denies abd pain. Has low appetite. NAD, cachectic-appearing Edentulous, speech difficult to understand due to this Lungs diminished throughout with faint wheeze RRR no mgr Abd scaphoid, + BS, soft NT ND Ext left AKA, right sarcopenia and no edema, trophic appearing distal foot/leg 71 yo male here with recurrent C. diff, weight loss, cachexia leading to weakness and fall. With rhabdomyolysis here and profound hypokalemia secondary to GI losses plus poor po intake likely. Also with esophageal wall thickening on imaging and h/o weight loss, reported alcohol abuse--> EGD with beign appearing stenosis dilated with scope, moderate gastritis biopsied--> f/u biopsies -Appreciate GI consultation--> Continues with positive C. diff ag, continue po Vanco and IV Flagyl--> consider fecal transplant. WIll d/w GI -Speech Tx consult appreciated--> plan for Video swallow -Considering failure to thrive and overall deconditioning, may need to consider Palliative Care consult if not wanting to eat or pursue aggressive rehab -SNF placement will be needed when diarrhea improving Documented By: Emerald Cavanaugh (Emerald Cavanaugh MD)
--- NOTE | 2017-02-11 10:08 | Gastroenterology Progress Note ---
Progress Note Date of Service: Feb 11, 2017 Subjective Pt evaluation today including: conversation w/ patient, physical exam, chart review, lab review, review of inpatient medication list Patient provides only limited history but denies any abdominal pain. Reports stools are "runny". No dysphagia reported. Laboratory testing reviewed. C Diff testing remains pending. Fecal occult testing was negative. H&H remains stable. Continues antibiotic therapy and Protonix 40 mg daily. Review of Systems unable to obtain as patient lethargic Medications Current Inpatient Medications Medications (Trade) Dose Ordered Sig/Sebastian Route Start Time Stop Time Status Last Admin Dose Admin Ioversol (Optiray 320) 100 ml UD PRN IV 02/09/17 22:45 02/13/17 22:44 Citalopram Hydrobromide (celeXA TAB) 20 mg QAM PO 02/10/17 09:00 03/12/17 08:59 02/11/17 07:56 20 MG Gabapentin (Neurontin Cap) 200 mg TID PO 02/10/17 09:00 03/12/17 08:59 02/11/17 07:56 200 MG Acetaminophen (Tylenol Tab) 650 mg Q4H PRN PO 02/10/17 02:00 03/12/17 01:59 02/10/17 13:52 650 MG Al Hydrox/Mg Hydrox/Simethicone (Maalox Max Susp) 15 ml Q4H PRN PO 02/10/17 02:00 03/12/17 01:59 Ondansetron HCl (Zofran Inj) 4 mg Q6H PRN IV 02/10/17 02:00 03/12/17 01:59 Polyethylene (Miralax Powder Packet) 17 gm DAILY PRN PO 02/10/17 02:00 03/12/17 01:59 Thiamine HCl (Vitamin B-1 Tab) 100 mg QAM PO 02/10/17 09:00 03/12/17 08:59 02/11/17 07:56 100 MG Vancomycin HCl (Vancomycin Oral Soln) 250 mg QID PO 02/10/17 09:00 02/24/17 08:59 02/11/17 07:55 250 MG Metronidazole 500 mg/Prmx 100 ml @ 100 mls/hr Q8H IV 02/10/17 05:00 02/24/17 04:59 02/11/17 05:52 100 MLS/HR Finasteride (Proscar Tab) 5 mg QAM PO 02/10/17 09:00 03/12/17 08:59 02/11/17 09:02 5 MG Raspberry (Raspberry Syrup 5ml Cup) 5 ml QID PO 02/10/17 09:00 02/24/17 08:59 02/11/17 07:55 5 ML Levothyroxine Sodium (Synthroid Tab) 25 mcg SuTuThSa@0630 PO 02/11/17 06:30 03/13/17 06:29 02/11/17 05:53 25 MCG Folic Acid (Folvite Tab) 1 mg QAM PO 02/11/17 09:00 03/13/17 08:59 02/11/17 07:56 1 MG Levothyroxine Sodium (Synthroid Tab) 50 mcg MoWeFr@0630 PO 02/12/17 06:30 03/14/17 06:29 Arformoterol Tartrate (Brovana 15MCG/ 2ML Neb Soln) 15 mcg BIDR INH 02/10/17 20:00 03/12/17 19:59 02/11/17 07:20 15 MCG Albuterol Sulfate (Ventolin 0.083% 2.5MG/3ML Neb) 2.5 mg Q6R PRN INH 02/10/17 14:45 03/12/17 14:44 Ipratropium Calvin (Atrovent 0.02% 0.5MG/2.5ML Neb) 0.5 mg Q6R INH 02/10/17 21:00 03/12/17 20:59 02/11/17 02:16 0.5 MG Levalbuterol (Xopenex 1.25MG/ 0.5ML Neb) 1.25 mg Q6R INH 02/10/17 21:00 03/12/17 20:59 02/11/17 02:17 1.25 MG Enteral Nutritional Formula (Boost Plus Vanilla) 1 can TIDM PO 02/11/17 08:00 03/13/17 07:59 02/11/17 07:55 1 CAN Pantoprazole Sodium (Protonix Tab) 40 mg QAM PO 02/11/17 09:00 03/13/17 08:59 02/11/17 07:56 40 MG Potassium Phosphate 21 mmol/ Sodium Chloride 507 ml @ 145 mls/hr TODAY@0930 IV 02/11/17 09:30 02/11/17 13:00 02/11/17 09:40 145 MLS/HR Objective Vital Signs Date Time Temp Pulse Resp B/P (MAP) Pulse Ox O2 Delivery O2 Flow Rate FiO2 02/11/17 08:43 65 16 92 Room Air 02/11/17 08:00 Nasal Cannula 2.0 02/11/17 07:04 36.5 62 18 114/69 (84) 97 Room Air 02/11/17 04:05 Room Air 02/11/17 03:50 36.4 67 18 107/66 (80) 92 Room Air 02/11/17 02:17 70 18 93 Room Air 02/11/17 00:05 36.3 66 16 119/70 (86) 93 Room Air 02/11/17 00:05 Room Air 02/10/17 20:09 36.4 68 16 115/65 (82) 98 Room Air 02/10/17 20:00 Room Air 02/10/17 19:15 67 18 95 Room Air 02/10/17 16:58 96 Room Air 02/10/17 16:00 Room Air 02/10/17 15:02 36.5 61 20 106/55 (72) 100 Nasal Cannula 2.0 02/10/17 12:00 Nasal Cannula 2.0 02/10/17 11:07 36.7 64 18 97/55 (69) 100 Nasal Cannula 2.0 Physical Exam General Appearance: no apparent distress ENT: hearing grossly normal Respiratory/Chest: + decreased breath sounds Cardiovascular: regular rate, rhythm Abdomen: non tender, soft Neurologic/Psych: + pertinent finding (lethargic) Laboratory Results Last 24 Hours Test 02/10/17 11:01 02/10/17 13:04 02/10/17 16:27 02/11/17 07:13 White Blood Count 8.16 K/uL 9.89 K/uL Red Blood Count 3.43 M/uL 3.61 M/uL Hemoglobin 11.6 g/dL 11.6 g/dL Hematocrit 34.9 % 37.0 % Mean Corpuscular Volume 101.7 fL 102.5 fL Mean Corpuscular Hemoglobin 33.8 pg 32.1 pg Mean Corpuscular Hemoglobin Concent 33.2 g/dl 31.4 g/dl Platelet Count 183 K/uL 177 K/uL Mean Platelet Volume 9.7 fL 9.5 fL Neutrophils (%) (Auto) 84.7 % Lymphocytes (%) (Auto) 7.4 % Monocytes (%) (Auto) 7.0 % Eosinophils (%) (Auto) 0.4 % Basophils (%) (Auto) 0.1 % Neutrophils # (Auto) 6.92 K/uL Lymphocytes # (Auto) 0.60 K/uL Monocytes # (Auto) 0.57 K/uL Eosinophils # (Auto) 0.03 K/uL Basophils # (Auto) 0.01 K/uL RDW Standard Deviation 55.0 fL 56.3 fL RDW Coefficient of Variation 15.0 % 15.0 % Immature Granulocyte % (Auto) 0.4 % Immature Granulocyte # (Auto) 0.03 K/uL Sodium Level 144 mmol/L 143 mmol/L 146 mmol/L Potassium Level 2.5 mmol/L 3.1 mmol/L 3.5 mmol/L Chloride Level 104 mmol/L 105 mmol/L 111 mmol/L Carbon Dioxide Level 32 mmol/L 30 mmol/L 27 mmol/L Anion Gap 7.0 mmol/L 8.0 mmol/L 8.0 mmol/L Blood Urea Nitrogen 5 mg/dl 4 mg/dl 2 mg/dl Creatinine 0.62 mg/dl 0.57 mg/dl 0.52 mg/dl Est Creatinine Clear Calc Drug Dose 66.6 ml/min 72.5 ml/min 80.4 ml/min Estimated GFR () 116.5 120.6 125.2 Estimated GFR (Non- 100.5 104.0 108.0 BUN/Creatinine Ratio 7.6 7.1 4.4 Random Glucose 145 mg/dl 110 mg/dl 103 mg/dl Calcium Level 7.5 mg/dl 7.2 mg/dl 7.2 mg/dl Total Creatine Kinase 1411 U/L Free Triiodothyronine 1.67 pg/ml Vitamin B12 Level 658 pg/mL Folate > 24.00 ng/mL Phosphorus Level 1.2 mg/dl Magnesium Level 1.9 mg/dl Test 02/11/17 08:00 02/11/17 09:53 Stool Occult Blood NEGATIVE Assessment and Plan Patient is a 71-year-old male who presented with rhabdomyolysis after being found down by his son with reported diarrhea and history of recurrent Clostridium difficile with reported dysphagia and abnormal CT of the chest showing retained debris in the distal esophagus. 1. Await C Diff testing as pending. Patient is heme negative. Recommend discontinuation of abx coverage if negative. 2. Await input from speech pathology as pending. 3. Discussed with Dr. Marcial. Will proceed with EGD for further evaluation of esophagus today. Keep NPO. 4. Supportive care per primary team. Agree with DARWIN Burr as above Abd: Soft, NT, ND, +BS C-Diff positive today on testing, therefore continue abx as per the primary team EGD today for further evaluation of dysphagia.
[2017-02-11] MEDS ORDERED: PROPOFOL IV EMULSION 10 MG/ML 20 ML VIAL IV ONE (12:30)
[2017-02-11] MEDS ORDERED: LIDOCAINE HCL 2% 2 ML VIAL (20MG/ML) ONE (12:30)
--- NOTE | 2017-02-11 13:24 | GI REPORT ---
Procedure Date: 02/11/2017 12:41 PM Procedure: Upper GI endoscopy Indications: Dysphagia Medicines: Monitored Anesthesia Care Complications: No immediate complications. Estimated Blood Loss: Estimated blood loss: none. Procedure: Pre-Anesthesia Assessment: - Prior to the procedure, a History and Physical was performed, and patient medications and allergies were reviewed. The patient's tolerance of previous anesthesia was also reviewed. The risks and benefits of the procedure and the sedation options and risks were discussed with the patient. All questions were answered, and informed consent was obtained. Prior Anticoagulants: The patient has taken no previous anticoagulant or antiplatelet agents. ASA Grade Assessment: III - A patient with severe systemic disease. After reviewing the risks and benefits, the patient was deemed in satisfactory condition to undergo the procedure. After obtaining informed consent, the endoscope was passed under direct vision. Throughout the procedure, the patient's blood pressure, pulse, and oxygen saturations were monitored continuously. The scope was introduced through the mouth, and advanced to the second part of duodenum. The upper GI endoscopy was accomplished without difficulty. The patient tolerated the procedure well. Findings: One moderate benign-appearing, intrinsic stenosis was found. This measured 1.2 cm (inner diameter) x less than one cm (in length) and was traversed. Dilation was performed with passage of scope. A medium-sized hiatus hernia was present. Localized moderate inflammation characterized by erosions was found in the gastric antrum. Biopsies were taken with a cold forceps for histology. The examined duodenum was normal. Impression: - Benign-appearing esophageal stenosis. - Medium-sized hiatus hernia. - Gastritis. Biopsied. - Normal examined duodenum. Recommendation: - Return patient to [facility] for [facility] care. - Advance diet as tolerated. - Observe patient's clinical course. - Continue present medications. Jake Marcial DO 02/11/2017 1:23:14 PM This report has been signed electronically. Note Initiated On: 02/11/2017 12:41 PM I attest to the content of the Intraoperative Record and orders documented therein, exceptions below
[2017-02-11] MEDS: SODIUM CHLOR 0.45% + 20MEQ KCL 1,000 ML IV SCH ×2 (14:04→22:38)
[2017-02-11 14:33] LABS: BUN/CREATININE RATIO 4.7 (10-20); CALCIUM 7.2 mg/dl (8.5-10.1); CREATININE 0.47 mg/dl (0.60-1.40); MAGNESIUM 1.9 mg/dl (1.8-2.4)
[2017-02-11 14:47] LABS: PHOSPHORUS 2.9 mg/dl (2.5-4.9)
--- NOTE | 2017-02-11 15:00 | Anesthesiology Progress Note ---
Anesthesia Post Op Note Date & Time Feb 11, 2017 at 15:00 Vital Signs Pain Intensity: 3 Vital Signs Past 12 Hours Date Time Temp Pulse Resp B/P (MAP) Pulse Ox O2 Delivery O2 Flow Rate FiO2 02/11/17 14:48 68 16 93 Nasal Cannula 2.0 02/11/17 14:28 36.9 68 18 125/74 (91) 91 2.0 02/11/17 14:08 36.8 70 18 124/78 (93) 91 Nasal Cannula 2.0 02/11/17 13:42 68 20 116/61 (79) 92 Nasal Cannula 6 02/11/17 13:27 69 20 119/58 (78) 98 Nasal Cannula 2 02/11/17 13:12 80 20 144/84 (104) 100 Mask 10 02/11/17 12:36 36.4 71 20 128/75 (92) 93 Room Air 2 02/11/17 12:00 Nasal Cannula 2.0 02/11/17 11:38 36.9 69 16 132/79 (96) 93 2.0 02/11/17 10:34 36.9 69 16 132/79 93 Nasal Cannula 2.0 02/11/17 08:43 65 16 92 Room Air 02/11/17 08:00 Nasal Cannula 2.0 02/11/17 07:04 36.5 62 18 114/69 (84) 97 Room Air 02/11/17 04:05 Room Air 02/11/17 03:50 36.4 67 18 107/66 (80) 92 Room Air Notes Mental Status: alert / awake / arousable, participated in evaluation Pt Amnestic to Procedure: Yes Nausea / Vomiting: adequately controlled Pain: adequately controlled Airway Patency, RR, SpO2: stable & adequate BP & HR: stable & adequate Hydration State: stable & adequate Anesthetic Complications: no major complications apparent
[2017-02-11] MEDS ORDERED: MAGNESIUM SULFATE 1GM / D5W 1 GM in PREMIXED IN D5W 100 ML IV ONE (17:00)
[2017-02-11] MEDS: ACETAMINOPHEN 325 MG TAB PO PRN (19:42)
[2017-02-12] VITALS (12 sets, daily range): BP systolic 119–151; BP diastolic 68–82; PULSE 62–83; TEMP 36.3–37; O2SAT 84–98
[2017-02-12] MEDS: LEVALBUTEROL 1.25MG/0.5ML NEB INH SCH ×4 (02:06→19:06)
[2017-02-12] MEDS: IPRATROPIUM BROMIDE NEB SOLN 0.02% 2.5 ML VIAL INH SCH ×4 (02:06→19:06)
[2017-02-12] MEDS: METRONIDAZOLE / NSS 500 MG in PREMIXED NSS 100 ML IV SCH ×2 (04:56→13:24)
[2017-02-12] MEDS: SODIUM CHLOR 0.45% + 20MEQ KCL 1,000 ML IV SCH ×3 (04:57→19:28)
[2017-02-12] MEDS: LEVOTHYROXINE 50 MCG TAB PO SCH (04:58)
[2017-02-12 06:48] LABS: HEMATOCRIT 34.9 % (42-52); MEAN CELL VOLUME 101.5 fL (80-100); MEAN CORPUSCULAR HEMOGLOBIN 33.1 pg (25-34); MEAN CORPUSCULAR HGB CONC 32.7 g/dl (32-36); MEAN PLATELET VOLUME 9.9 fL (7.4-10.4); PLATELET COUNT 194 K/uL (130-400); RED BLOOD COUNT 3.44 M/uL (4.7-6.1); WHITE BLOOD COUNT 9.79 K/uL (4.8-10.8)
[2017-02-12 07:24] LABS: BUN/CREATININE RATIO 4.3 (10-20); CALCIUM 7.3 mg/dl (8.5-10.1); CREATININE 0.53 mg/dl (0.60-1.40); MAGNESIUM 2.1 mg/dl (1.8-2.4); POTASSIUM 4.2 mmol/L (3.5-5.1)
[2017-02-12 07:46] LABS: PHOSPHORUS 1.9 mg/dl (2.5-4.9)
[2017-02-12] MEDS: ARFORMOTEROL TART 15MCG/2ML VIAL INH SCH ×2 (07:59→19:05)
[2017-02-12] MEDS: GABAPENTIN 100 MG CAP PO SCH ×3 (08:37→19:30)
[2017-02-12] MEDS: VANCOMYCIN HCL 250 MG/5 ML SOLN PO SCH ×4 (08:37→19:29)
[2017-02-12] MEDS: RASPBERRY SYRUP 5 ML UDP PO SCH ×4 (08:37→19:30)
[2017-02-12] MEDS: PANTOprazole SOD 40 MG TAB PO SCH (08:37)
[2017-02-12] MEDS: BOOST PLUS VANILLA PO SCH ×6 (08:38→18:16)
[2017-02-12] MEDS: THIAMINE HCL 100 MG TAB PO SCH (08:38)
[2017-02-12] MEDS: CITALOPRAM 20 MG TAB PO SCH (08:38)
[2017-02-12] MEDS: FINASTERIDE 5 MG TAB PO SCH (09:06)
--- NOTE | 2017-02-12 13:14 | DIAGNOSTIC IMAGING REPORT ---
VIDEO SWALLOW STUDY CLINICAL HISTORY: Aspiration. COMPARISON STUDY: Video swallow study dated 01/27/2016. Fluoroscopy time: 4.6 minutes. FINDINGS: Fluoroscopic guidance was provided to the Department of Speech Pathology in performing a video swallow study. The patient consumed barium-impregnated pudding, nectar thick liquid, and thin barium while the swallowing mechanism was observed in real-time. The patient declined the cracker with paste assessment. There was penetration with silent aspiration seen on the thin barium swallows. Deep pharyngeal penetration without clear evidence of aspiration was seen on the nectar thick liquid texture. No aspiration was seen with pudding. IMPRESSION: 1. Silent aspiration was seen with thin barium. 2. Deep penetration without clear evidence of aspiration was seen with nectar thick liquids. 3. See dedicated speech pathology report for detailed findings and recommendations. Dictated: 02/12/2017 1:08 PM Transcribed: 02/12/2017 1:14 PM Sandra Electronically signed by: Tony Hilliard M.D. 02/12/2017 1:15 PM Dictated Date/Time: 02/12/2017 1:08 PM
[2017-02-12] MEDS ORDERED: VANCOMYCIN PR SCH (18:00)
[2017-02-12] MEDS: POT PHOSPHATE MONOBASIC W/ SOD TAB PO SCH ×2 (18:17→19:30)
[2017-02-12] MEDS: VANCOMYCIN PR SCH (18:18)
[2017-02-12] MEDS: ACETAMINOPHEN 325 MG TAB PO PRN (19:28)
[2017-02-12] MEDS: CHOLESTYRAMINE LIGHT 4 GM PKT PO SCH (21:09)
--- NOTE | 2017-02-12 23:14 | Hospitalist Progress Note ---
Hospitalist Progress Note Date of Service Feb 12, 2017. Subjective Pt evaluation today including: conversation w/ patient, conversation w/ family (son on phone), conversation w/ [employer] [facility] consultant (BILL Marcial) Voiding: andino catheter in place RN reports penis is looking much more swollen than yesterday. He continues with multiple episodes of diarrhea today. He was aspirating on his video swallow. Appetite today seems slightly improved. Son reports that pt was definitely compliant with taking the 10 day course of po Vanco for his 3rd episode of C. diff back in December 2016. Constitutional: No fever Respiratory: No shortness of breath Cardiovascular: No chest pain Abdomen: + diarrhea, No pain, No vomiting Musculoskeletal: No problem reported All Other Systems: Reviewed and Negative Objective Vital Signs Date Time Temp Pulse Resp B/P (MAP) Pulse Ox O2 Delivery O2 Flow Rate FiO2 02/12/17 20:00 Nasal Cannula 2.0 02/12/17 19:52 36.9 78 22 146/78 (100) 96 Nasal Cannula 2.0 02/12/17 19:06 83 14 92 Nasal Cannula 2.0 02/12/17 16:00 Nasal Cannula 2.0 02/12/17 15:21 36.3 70 18 151/82 (105) 97 Nasal Cannula 2.0 02/12/17 14:23 66 16 91 Nasal Cannula 2.0 02/12/17 12:00 Nasal Cannula 2.0 02/12/17 11:46 37.0 16 119/69 (86) 93 Room Air 02/12/17 08:38 84 Room Air 02/12/17 08:38 94 Nasal Cannula 3.0 02/12/17 08:00 Nasal Cannula 2.0 02/12/17 07:03 36.3 66 20 135/68 (90) 92 Nasal Cannula 2.0 02/12/17 06:59 62 16 98 Nasal Cannula 2.0 02/12/17 04:24 36.9 74 16 129/76 (93) 90 Room Air 02/12/17 04:00 Nasal Cannula 2.0 02/12/17 02:06 74 16 85 Room Air 02/12/17 02:00 94 Nasal Cannula 2.0 02/12/17 00:00 Nasal Cannula 2.0 02/11/17 23:42 36.4 68 16 127/73 (91) 96 Nasal Cannula 2.0 Physical Exam General Appearance: no apparent distress, + cachetic Eyes: sclerae normal ENT: hearing grossly normal Neck: trachea midline Respiratory/Chest: no accessory muscle use, + decreased breath sounds ( diminished significantly throughout all lung osorio with faint wheezing) Cardiovascular: regular rate, rhythm, no edema, no murmur Abdomen: normal bowel sounds, non tender, soft, + pertinent finding (penis with edema of glans and shaft slightly increased from previous, Andino in place) Extremities: no pedal edema, + pertinent finding (left AKA) Neurologic/Psychiatric: alert, normal mood/affect Skin: normal color, warm/dry, no rash Laboratory Results Last 24 Hours Test 02/12/17 05:54 White Blood Count 9.79 K/uL Red Blood Count 3.44 M/uL Hemoglobin 11.4 g/dL Hematocrit 34.9 % Mean Corpuscular Volume 101.5 fL Mean Corpuscular Hemoglobin 33.1 pg Mean Corpuscular Hemoglobin Concent 32.7 g/dl RDW Standard Deviation 56.8 fL RDW Coefficient of Variation 15.3 % Platelet Count 194 K/uL Mean Platelet Volume 9.9 fL Sodium Level 142 mmol/L Potassium Level 4.2 mmol/L Chloride Level 108 mmol/L Carbon Dioxide Level 28 mmol/L Anion Gap 6.0 mmol/L Blood Urea Nitrogen 2 mg/dl Creatinine 0.53 mg/dl Est Creatinine Clear Calc Drug Dose 80.5 ml/min Estimated GFR () 124.2 Estimated GFR (Non- 107.2 BUN/Creatinine Ratio 4.3 Random Glucose 71 mg/dl Calcium Level 7.3 mg/dl Phosphorus Level 1.9 mg/dl Magnesium Level 2.1 mg/dl Total Creatine Kinase 1082 U/L Assessment and Plan 71 y/o male with a history of recurrent C. diff colitis (4 times), COPD, alcoholism, thyroid cancer s/p thyroidectomy and partial glossectomy, hypothyroidism, BPH, depression, h/o DVT/PE, and L AKA, with weight loss, cachexia leading to weakness and fall. With rhabdomyolysis here and profound hypokalemia secondary to GI losses plus poor po intake likely. He was on the ground for about 8 hours until he was found by his son. The patient was also found to have hypoxia and hypercarbia on arrival. Recurrent C. diff colitis-4th recurrence, did not improve much at all in May after 10 day course Vanco-continues to have profuse diarrhea here after 3 days IV Flagyl and po Vanco. Discussed with GI and ID as well as Pharmacy today--> -will try Vanco enemas in addition to high dose po Vanco for 2 more days and if no improvement, will switch to Dificid -continue IVFs and lyte replacement -start Questran -Appreciate GI consultation -consider fecal transplant in future -stopped IV Flagyl as not seeming to help -check Stool culture, O&P as well Weakness, fall,cachexia,severe protein calorie malnutrition, rhabdomyolysis-all likely secondary to recurrent chronic diarrhea, h/o EtOH abuse, poor intake. CK trending downward to 1000 today -Nutrition and Speech consults appreciated -continue supplements -continue IVFs Dysphagia, Aspiration, h/o partial glossectomy and neck dissection- CT esophageal wall thickening on imaging--> EGD with beign appearing esophageal stenosis dilated with scope, moderate gastritis biopsied--> f/u biopsies -continue PPI -aspiration and Speech precautions: pureed diet with nectar thick liquids, no straw, aspiration precautions, sit fully upright for meals -Considering failure to thrive and overall deconditioning, may need to consider Palliative Care consult if not wanting to eat or pursue aggressive rehab -SNF placement will be needed when diarrhea improving Hypokalemia, Hypophosphatemia--resolved after replacement -follow PRP, Phos, Mg -replace lytes as needed NSVT, Prolonged QT-one 14 beat run NSVT, asymptomatic, when had severe hypokalemia. LV function unknown -replaced lytes -continue tele monitoring -check ECHO-still pending -repeat ECG in AM to see if QT improved Anemia, macrocytic--> drop from admission secondary to previous hemoconcentration and then dilutional from IVFs -Hemoglobin dropped to 11.6 on 02/10 from 15.5 -Fecal occult blood negative, Vitamin B12 and folate within normal limits -Likely secondary to EtOH abuse -abstinence from EtOH -follow CBC periodically Acute hypoxemic and hypercarbic respiratory failure, COPD, Current smoker-- improved, remains on supplemental O2 -O2 by protocol -Pulmonology consulted, appreciate recs: Started on Brovana and Xopenex/ Atrovent nebs History of alcohol abuse--states he hasn't drank in 5-6 weeks -Continue thiamine 100 mg PO qd -Continue folate 1 mg PO qd H/o thyroid cancer s/p thyroidectomy, hypothyroidism -TSH low -Free T4 WNL, free T3 low -Decreased Synthroid to 25 mcg 4 times a week, 50 mcg 3 times a week Urinary retention, Penile edema could be from trauma. Has a h/o BPH and urinary retention in the past -Andino placed -Finasteride 5 mg PO qd -start Flomax -Consult Urology Depression -Continue citalopram 20 mg PO qd Proph-heparin was discontinued due to EGD, now will restart as Hemoccult negative Dispo-Full Code -to [facility] when medically stable
[2017-02-13] VITALS (11 sets, daily range): BP systolic 98–114; BP diastolic 65–77; PULSE 74–88; TEMP 36.4; O2SAT 86–93
[2017-02-13] MEDS: VANCOMYCIN PR SCH ×4 (00:03→17:45)
[2017-02-13] MEDS: ACETAMINOPHEN 325 MG TAB PO PRN ×2 (00:18→06:27)
[2017-02-13] MEDS: IPRATROPIUM BROMIDE NEB SOLN 0.02% 2.5 ML VIAL INH SCH ×3 (01:47→14:09)
[2017-02-13] MEDS: LEVALBUTEROL 1.25MG/0.5ML NEB INH SCH ×3 (01:47→14:09)
[2017-02-13] MEDS: SODIUM CHLOR 0.45% + 20MEQ KCL 1,000 ML IV SCH ×3 (03:41→18:08)
[2017-02-13] MEDS: LEVOTHYROXINE 25 MCG TAB PO SCH (06:26)
[2017-02-13] MEDS: ARFORMOTEROL TART 15MCG/2ML VIAL INH SCH ×2 (07:12→19:19)
[2017-02-13 07:15] LABS: HEMATOCRIT 37.3 % (42-52); MEAN CELL VOLUME 100.8 fL (80-100); MEAN CORPUSCULAR HEMOGLOBIN 33.2 pg (25-34); MEAN PLATELET VOLUME 9.6 fL (7.4-10.4); PLATELET COUNT 211 K/uL (130-400); WHITE BLOOD COUNT 10.29 K/uL (4.8-10.8)
[2017-02-13 07:48] LABS: BUN/CREATININE RATIO 3.1 (10-20); CALCIUM 7.6 mg/dl (8.5-10.1); CREATININE 0.51 mg/dl (0.60-1.40); MAGNESIUM 1.9 mg/dl (1.8-2.4); POTASSIUM 4.6 mmol/L (3.5-5.1)
[2017-02-13 07:52] LABS: PHOSPHORUS 1.7 mg/dl (2.5-4.9)
[2017-02-13] MEDS: CHOLESTYRAMINE LIGHT 4 GM PKT PO SCH ×2 (10:00→22:32)
[2017-02-13] MEDS: CITALOPRAM 20 MG TAB PO SCH (10:19)
[2017-02-13] MEDS: POT PHOSPHATE MONOBASIC W/ SOD TAB PO SCH ×4 (10:19→21:00)
[2017-02-13] MEDS: FINASTERIDE 5 MG TAB PO SCH (10:19)
[2017-02-13] MEDS: PANTOprazole SOD 40 MG TAB PO SCH (10:19)
[2017-02-13] MEDS: THIAMINE HCL 100 MG TAB PO SCH (10:19)
[2017-02-13] MEDS: VANCOMYCIN HCL 250 MG/5 ML SOLN PO SCH ×4 (10:20→21:12)
[2017-02-13] MEDS: RASPBERRY SYRUP 5 ML UDP PO SCH ×4 (10:20→21:00)
[2017-02-13] MEDS: ENOXAPARIN 30 MG/0.3 ML SYR SQ SCH (10:20)
[2017-02-13] MEDS: GABAPENTIN 100 MG CAP PO SCH ×3 (10:20→21:00)
[2017-02-13] MEDS: BOOST PLUS VANILLA PO SCH ×6 (10:21→17:42)
--- NOTE | 2017-02-13 11:03 | Urology Consultation ---
History General Date of Service: Feb 13, 2017. Chief Complaint: penile swelling; urinary retention Primary Care Physician: James Magallon M.D. Pt seen a urologist before?: Yes If yes, why?: BPH History of Present Illness 71y/o male admitted with recurrent c diff infection as well as numerous other chronic and acute issues - a urology consultation was requested secondary to increasing penile swelling and urinary retention - he had a andino catheter placed previously, without apparent incident - renal function has been excellent and his urine output appropriate - he is on flomax and finasteride - he is an amputee, very weak appearing, and poorly mobile - he additionally has had progressive penile shaft swelling since the time of catheter placement - he is uncircumcised Laboratory Labs were reviewed and are within normal limits unless listed below. Labs are available in the chart and at [facility] Problem List Medical Problems: (1) C. difficile colitis Status: Acute (2) Colitis Status: Acute (3) DVT (deep venous thrombosis) Status: Acute (4) Pulmonary emboli Status: Acute Past History BPH, cancer (thyroid), deep vein thrombosis, lung disease, vascular disease Past Surgical History: thyroidectomy, other (amputation) Family History No pertinent family history stated non contrib to current issues Social History Hx Tobacco Use In Past Year?: Yes Marital status: single Housing status: lives alone Occupation status: disabled Immunizations History of Influenza Vaccine: Yes Influenza Vaccine Date: Oct 07, 2009 History of Tetanus Vaccine?: Yes Tetanus Immunization Date: Mar 22, 2006 History of Pneumococcal: No History of Hepatitis B Vaccine: No History of MDRO No Allergies Coded Allergies: No Known Allergies (Verified , 01/07/17) Medications Home Medications: Home Meds and Scripts Medications Dose Route/Sig Max Daily Dose Days Date Category Citalopram Hydrobromide (Citalopram) 20 Mg Tab 20 Mg PO QAM 02/09/17 Reported Levothyroxine Sodium 50 Mcg Tab 50 Mcg PO QAM 90 01/07/17 Reported Neurontin (Gabapentin) 100 Mg Cap 200 Mg PO TID 01/07/17 Reported Tylenol Arthritis Ext Rel (Acetaminophen) 650 Mg Cplt 650 Mg PO BID PRN 02/19/14 Reported Inpatient Medications: Current Inpatient Medications Medications (Trade) Dose Ordered Sig/Sebastian Route Start Time Stop Time Status Last Admin Dose Admin Ioversol (Optiray 320) 100 ml UD PRN IV 02/09/17 22:45 02/13/17 22:44 Citalopram Hydrobromide (celeXA TAB) 20 mg QAM PO 02/10/17 09:00 03/12/17 08:59 02/13/17 10:19 20 MG Gabapentin (Neurontin Cap) 200 mg TID PO 02/10/17 09:00 03/12/17 08:59 02/13/17 10:20 200 MG Acetaminophen (Tylenol Tab) 650 mg Q4H PRN PO 02/10/17 02:00 03/12/17 01:59 02/13/17 06:27 650 MG Al Hydrox/Mg Hydrox/Simethicone (Maalox Max Susp) 15 ml Q4H PRN PO 02/10/17 02:00 03/12/17 01:59 Ondansetron HCl (Zofran Inj) 4 mg Q6H PRN IV 02/10/17 02:00 03/12/17 01:59 Thiamine HCl (Vitamin B-1 Tab) 100 mg QAM PO 02/10/17 09:00 03/12/17 08:59 02/13/17 10:19 100 MG Vancomycin HCl (Vancomycin Oral Soln) 250 mg QID PO 02/10/17 09:00 02/24/17 08:59 02/13/17 10:20 250 MG Finasteride (Proscar Tab) 5 mg QAM PO 02/10/17 09:00 03/12/17 08:59 02/13/17 10:19 5 MG Raspberry (Raspberry Syrup 5ml Cup) 5 ml QID PO 02/10/17 09:00 02/24/17 08:59 02/13/17 10:20 5 ML Levothyroxine Sodium (Synthroid Tab) 25 mcg SuTuThSa@0630 PO 02/11/17 06:30 03/13/17 06:29 02/13/17 06:26 25 MCG Folic Acid (Folvite Tab) 1 mg QAM PO 02/11/17 09:00 03/13/17 08:59 02/13/17 10:19 1 MG Levothyroxine Sodium (Synthroid Tab) 50 mcg MoWeFr@0630 PO 02/12/17 06:30 03/14/17 06:29 02/12/17 04:58 50 MCG Arformoterol Tartrate (Brovana 15MCG/ 2ML Neb Soln) 15 mcg BIDR INH 02/10/17 20:00 03/12/17 19:59 02/13/17 07:12 15 MCG Albuterol Sulfate (Ventolin 0.083% 2.5MG/3ML Neb) 2.5 mg Q6R PRN INH 02/10/17 14:45 03/12/17 14:44 Ipratropium [place] (Atrovent 0.02% 0.5MG/2.5ML Neb) 0.5 mg Q6R INH 02/10/17 21:00 03/12/17 20:59 02/13/17 01:47 0.5 MG Levalbuterol (Xopenex 1.25MG/ 0.5ML Neb) 1.25 mg Q6R INH 02/10/17 21:00 03/12/17 20:59 02/13/17 01:47 1.25 MG Enteral Nutritional Formula (Boost Plus Vanilla) 1 can TIDM PO 02/11/17 08:00 03/13/17 07:59 02/13/17 10:21 1 CAN Pantoprazole Sodium (Protonix Tab) 40 mg QAM PO 02/11/17 09:00 03/13/17 08:59 02/13/17 10:19 40 MG Potassium Chloride/Sodium Chloride 1,000 ml @ 125 mls/hr Q8H IV 02/11/17 12:30 03/13/17 12:29 02/13/17 03:41 125 MLS/HR Potassium/ Phosphorus/Sodium (Phospha 250 Neutral 155-852-130 Mg) 1 tab QID PO 02/12/17 17:00 03/14/17 16:59 02/13/17 10:19 1 TAB Cholestyramine Resin (Questran Powder Light) 4 gm BID@ PO 02/12/17 22:00 03/14/17 21:59 Vancomycin HCl (Vancomycin Enema) 250 mg Q6 NM 02/12/17 18:00 02/26/17 17:59 02/13/17 06:25 250 MG Tamsulosin HCl (Flomax Cap) 0.4 mg HS PO 02/13/17 21:00 03/15/17 20:59 Enoxaparin Sodium (Lovenox Inj) 30 mg DAILY SQ 02/13/17 09:00 03/15/17 08:59 02/13/17 10:20 30 MG Review of Systems Review of Systems Constitutional: No see HPI, No fever, No chills, No frequent headaches, No weight loss, No problem reported Eyes: No see HPI, No blurred vision, No double vision, No eye pain, No loss of night vision, No problem reported Neurological: No see HPI, No dizzy, No passing out, No numbness/tingling, No seizures, No problem reported Endocrine: No see HPI, No excessive thirst, No too hot, No too cold, No tired/ sluggish, No problem reported Gastrointestinal: + abdominal pain, + diarrhea Cardiovascular: No see HPI, No heart murmur, No chest pain, No angina, No irregular heartbeat, No palpitations, No swelling ankles/feet, No problem reported Respiratory: + shortness of breath Skin: No see HPI, No rash, No boils, No dry skin, No problem reported Musculoskeletal: No see HPI, No joint pain, No neck pain, No back pain, No arthritis, No problem reported Blood / Lymphatic: No see HPI, No bleed easily, No bruise easily, No swollen glands, No problem reported Ears / Nose / Throat: No see HPI, No hearing loss, No sinus, No hoarse voice, No sore throat, No problem reported Psychologic / Mental: No see HPI, No nervous, No trouble remembering, No difficulty sleeping, No problem reported Male : + problem reported Physical Exam Vital Signs: Vital Signs Past 12 Hours Date Time Temp Pulse Resp B/P (MAP) Pulse Ox O2 Delivery O2 Flow Rate FiO2 02/13/17 07:58 36.4 77 18 112/74 (87) 93 Nasal Cannula 2.0 02/13/17 07:12 86 16 86 Nasal Cannula 2.0 02/13/17 04:00 Nasal Cannula 2.0 02/13/17 04:00 36.4 81 18 106/67 (80) 93 2.0 02/13/17 01:48 82 14 90 Nasal Cannula 2.0 02/13/17 00:00 Nasal Cannula 2.0 02/12/17 23:52 36.4 83 20 121/79 (93) 90 Nasal Cannula 2.0 Physical Exam: General Appearance: WD/WN, no apparent distress Eyes: bilateral eyes normal inspection ENT: hearing grossly normal Neck: no adenopathy Respiratory/Chest: no respiratory distress, no accessory muscle use Cardiovascular: no edema Gastrointestinal: Abdomen: normal abdomen (soft) Genitourinary - Male: Penis: pertinent finding (uncircumcised - paraphimosis immediately noted, swollen penile skin) Extremities: + pertinent finding (absent lower extremity) Neurologic/Psychiatric: normal mood/affect (somewhat somnolent) Skin: warm/dry Assessment & Plan Assessment & Plan Paraphimosis; urinary retention 1. Paraphimosis - foreskin likely retracted during catheterization and then never reduced - I reduced this at the bedside without significant difficulty - be sure to keep skin reduced (covering the glans) to ensure no recurrence 2. Retention - cont meds - cont catheter - likely will be unable to void until his energy, mobility, and overall status have improved
[2017-02-13] MEDS ORDERED: SODIUM PHOSPHATE 3 MMOL/1 ML INFUSION IV STA (12:08)
--- NOTE | 2017-02-13 12:33 | Hospitalist Progress Note ---
Hospitalist Progress Note Date of Service Feb 13, 2017. (Krystyna Yung ., DB-C) Subjective Pt evaluation today including: conversation w/ patient, physical exam, chart review, lab review, conversation w/ integrity consultant (spoke with Dr. Decker), review of inpatient medication list Pain: None PO Intake: Poor appetite, eating little besides Boost Voiding: andino catheter in place Patient reports not feeling well today. He denies weakness and fatigue specifically but states he is generally not feeling well. He states that he is nauseous, although he denies vomiting or abdominal pain. He also does not think he has been having diarrhea today either. He denies any other discomfort/ pain. Per nursing, he is still not eating well and did not eat anything for breakfast besides Boost with his meds. Nursing does not report any diarrhea, stating he has only been having smears of stool. The patient denies fevers, chills, sweats, chest pain, palpitations, claudication, cough, wheezing, shortness of breath, vomiting, abdominal pain, dysuria, hematuria, urinary retention, paralysis, weakness, numbness and tingling. Additional Comments: See HPI for pertinent positives and negatives. All other systems reviewed and negative. (Krystyna Yung ., PA-C) Objective Vital Signs Date Time Temp Pulse Resp B/P (MAP) Pulse Ox O2 Delivery O2 Flow Rate FiO2 02/13/17 11:31 36.4 80 20 114/77 (89) 90 Nasal Cannula 4.0 02/13/17 07:58 36.4 77 18 112/74 (87) 93 Nasal Cannula 2.0 02/13/17 07:12 86 16 86 Nasal Cannula 2.0 02/13/17 04:00 Nasal Cannula 2.0 02/13/17 04:00 36.4 81 18 106/67 (80) 93 2.0 02/13/17 01:48 82 14 90 Nasal Cannula 2.0 02/13/17 00:00 Nasal Cannula 2.0 02/12/17 23:52 36.4 83 20 121/79 (93) 90 Nasal Cannula 2.0 02/12/17 20:00 Nasal Cannula 2.0 02/12/17 19:52 36.9 78 22 146/78 (100) 96 Nasal Cannula 2.0 02/12/17 19:06 83 14 92 Nasal Cannula 2.0 02/12/17 16:00 Nasal Cannula 2.0 02/12/17 15:21 36.3 70 18 151/82 (105) 97 Nasal Cannula 2.0 02/12/17 14:23 66 16 91 Nasal Cannula 2.0 02/12/17 12:00 Nasal Cannula 2.0 (Krystyna Yung ., PA-C) Physical Exam Notes: General Appearance: no apparent distress, + cachetic, + pertinent finding ( difficult to understand speech) Eyes: normal inspection, PERRL, EOMI ENT: normal ENT inspection, hearing grossly normal, + pertinent finding (white exudate posterior pharynx) Neck: supple, no JVD, trachea midline Respiratory/Chest: lungs clear, normal breath sounds, no respiratory distress, Cardiovascular: regular rate, rhythm, no gallop, no murmur Abdomen: normal bowel sounds, non tender, soft : penis/foreskin mildly edematous. foreskin now back in place following paraphimosis reduction Extremities: non-tender, + pertinent finding (L AKA, RLE venous stasis changes) Neurologic/Psychiatric: normal mood/affect, oriented x 3, + pertinent finding ( lethargic) Skin: normal color, warm/dry, no rash (Krystyna Yung ., PA-C) Laboratory Results Last 24 Hours Test 02/13/17 06:46 White Blood Count 10.29 K/uL Red Blood Count 3.70 M/uL Hemoglobin 12.3 g/dL Hematocrit 37.3 % Mean Corpuscular Volume 100.8 fL Mean Corpuscular Hemoglobin 33.2 pg Mean Corpuscular Hemoglobin Concent 33.0 g/dl RDW Standard Deviation 56.3 fL RDW Coefficient of Variation 15.4 % Platelet Count 211 K/uL Mean Platelet Volume 9.6 fL Sodium Level 140 mmol/L Potassium Level 4.6 mmol/L Chloride Level 107 mmol/L Carbon Dioxide Level 24 mmol/L Anion Gap 9.0 mmol/L Blood Urea Nitrogen 2 mg/dl Creatinine 0.51 mg/dl Est Creatinine Clear Calc Drug Dose 83.1 ml/min Estimated GFR () 126.2 Estimated GFR (Non- 108.9 BUN/Creatinine Ratio 3.1 Random Glucose 102 mg/dl Calcium Level 7.6 mg/dl Phosphorus Level 1.7 mg/dl Magnesium Level 1.9 mg/dl Total Creatine Kinase 456 U/L (Krystyna Yung ., BRUNO) Assessment and Plan 71 y/o male with a history of recurrent C. diff colitis, COPD, h/o alcoholism, thyroid cancer s/p thyroidectomy and hypothyroidism, BPH, depression, h/o DVT/PE , and L AKA who presents following a fall. He was on the ground for about 8 hours until he was found by his son. The patient was found to have severe hypokalemia on arrival as well as hypoxia and hypercarbia. Hypokalemia--resolved -Admitted to telemetry. Pt in SR overnight, HR between 70s-80s -Potassium 2.1 on arrival. Patient received total 60 mEq KCl IV upon admission/ during his first night. -Potassium improved to 2.5 the following morning, was given another 40 mEq IV -Potassium remains stable in 4s -Magnesium stable Hypophosphatemia--worsening -Phosphorus 2.1 on 02/10 -Given K-Phos 15 mmol IV -Phosphorus 1.7 on 02/13 -Given another 21 mmol neutra phos IV x 1, continue to monitor Acute anemia, blood loss/melanotic stools vs dilutional--stable/improving -Hemoglobin dropped to 11.6 on 02/10 from 15.5 -Hgb stable/improving, at 12.3 on 02/13 -Fecal occult blood pending -GI consulted, appreciate recs: Continue Protonix, advance diet as tolerated -Vitamin B12 and folate within normal limits -EGD on 02/11: moderate benign intrinsic esophageal stenosis which was dilated with scope. Medium hiatal hernia. Moderate inflammation w/erosions in gastric antrum. Biopsies taken. Duodenum normal. -Gastric biopsy pathology: benign gastric mucosa w/foveolar hyperplasia. Negative for gastritis, intestinal metaplasia, dysplasia and carcinoma. No H. Pylori Hypoxia and hypercarbia, h/o COPD--stable -O2 by protocol -Pulmonology consulted, appreciate recs: Started on Brovana and Xopenex/ Atrovent nebs Acute C diff colitis--stable -C. difficile positive -Flagyl IV d/c'd -Continue PO vancomycin (day #4) and vancomycin enemas q6hn (day #2) -GI on board Dysphagia/odynophagia - Speech therapy evaluate and treat: moist, pureed diet with nectar thick liquids, no straw, aspiration precautions, sit fully upright for meals -Video swallow: silent aspiration on thin barium Rhabdomyolysis--resolving -CK 1575 on admission -CK down to 456 on 02/13 -Sodium and glucose elevated, change IVF to 1/2NSS + 20 KCl at 125 cc/hr -Continue IVF as not eating adequately History of alcohol abuse--states he hasn't drank in 5-6 weeks -Continue thiamine 100 mg PO qd -Continue folate 1 mg PO qd H/o thyroid cancer s/p thyroidectomy, hypothyroidism -TSH low -Free T4 WNL, free T3 low -Decrease Synthroid to 25 mcg 4 times a week, 50 mcg 3 times a week Urinary retention/penile swelling--stable -Andino placed -Finasteride 5 mg PO qd -Start Flomax 0.4 mg PO qd -Urology consulted, appreciate recs: paraphimosis which was reduced at bedside. Continue Flomax and Proscar and catheter Depression -Continue citalopram 20 mg PO qd Cachexia, severe protein calorie malnutrition -Continue Boost DVT prophylaxis -Heparin 5000 units SC q8h Code Status -Level I, FULL RESUSCITATION STATUS Dispo -PT evaluated, recommend ECF when medically stable. (Krystyna Yung ., BRUNO) Reviewed: Pt Seen/Exam by Me (Emerald Cavanaugh MD) History Physician Manufacturing Leader Supervision Note: I interviewed and examined the patient. Discussed with DB Yung and agree with findings and plan as documented in the note. Any exceptions or clarifications are listed here: Pt denies CP or SOB, is very fatigued but feels a little better than this AM. He denies ever having a problem with his heart in the past. Reviewed results of ECHO with him showing EF 25-30%. He has never had any sort of ischemic cardiac evaluation he can recall. His UOP has decreased today despite being on IVFs. Only 350 mL/last 17 hours. Minimal po intake but diarrhea has slowed down. VSS, tele NSR cachectic, lying in bed, very difficult to understand his speech RRR no murmur audible diminished BS throughout but no crackles or wheezes Abd +BS, soft, NT ND Ext: right leg no edema, +sarcopenia diffusely Skin: no rashes 71 y/o male with a history of recurrent C. 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 With rhabdomyolysis here and profound hypokalemia secondary to GI losses plus poor po intake likely. He was on the ground for about 8 hours until he was found by his son. The patient was also found to have hypoxia and hypercarbia on arrival. Recurrent C. diff colitis-4th recurrence, did not improve much at all in December after 10 day course Vanco-continues to have profuse diarrhea here after 3 days IV Flagyl and po Vanco. -continue Vanco enemas in addition to high dose po Vanco for 2 more days and if no improvement, will switch to Dificid--> pr refusing enemas and po Vanco now, will encourage -continue IVFs and lyte replacement, reduce rate of IVFs to 75 given EF 25-30% although still very poor po intake -cont Questran -Appreciate GI consultation -consider fecal transplant in future -stopped IV Flagyl as not seeming to help -check Stool culture, O&P as well Weakness, fall,cachexia,severe protein calorie malnutrition, rhabdomyolysis-all likely secondary to recurrent chronic diarrhea, h/o EtOH abuse, poor intake. CK trending downward to 1000 today -Nutrition and Speech consults appreciated -continue supplements -continue IVFs Dysphagia, Aspiration, h/o partial glossectomy for SCC and neck dissection for thyroid CA- CT esophageal wall thickening on imaging--> EGD with benign appearing esophageal stenosis dilated with scope, moderate gastritis biopsied-->biopsies negative for CA -continue PPI -aspiration and Speech precautions: pureed diet with nectar thick liquids, no straw, aspiration precautions, sit fully upright for meals -Considering failure to thrive and overall deconditioning, discussed with family and patient--> son requesting/agreeable to Palliative Care consult as is not wanting to eat or pursue aggressive rehab or any aggressive procedures in future -SNF placement will be needed when diarrhea improving Hypokalemia, Hypophosphatemia--resolved after replacement -follow PRP, Phos, Mg -replace lytes as needed New Systolic CHF, Chronic diastolic CHF-unsure if acute or chronic but has has no evidence of volume overload so most likely chronic, NSVT, Prolonged QT-one 14 beat run NSVT, asymptomatic, when had severe hypokalemia. LV function EF 25- 30%,severe, with grade 2 diastolic dysfunction -replaced lytes -continue tele monitoring -discussed with Cardiology--> ok to continue gentle IV hydration as is hypovolemic -pt does not think he would want to pursue a cardiac cath, discussed possible need down the road for ICD/defib and son does not think pt would want that either Anemia, macrocytic--> drop from admission secondary to previous hemoconcentration and then dilutional from IVFs -Hemoglobin dropped to 11.6 on 02/10 from 15.5 -Fecal occult blood negative, Vitamin B12 and folate within normal limits -Likely secondary to EtOH abuse -abstinence from EtOH -follow CBC periodically Acute hypoxemic and hypercarbic respiratory failure, COPD, Current smoker-- improved, remains on supplemental O2 -O2 by protocol -Pulmonology consulted, appreciate recs: Started on Brovana and Xopenex/ Atrovent nebs History of alcohol abuse--states he hasn't drank in 5-6 weeks -Continue thiamine 100 mg PO qd -Continue folate 1 mg PO qd H/o thyroid cancer s/p thyroidectomy, hypothyroidism -TSH low -Free T4 WNL, free T3 low -Decreased Synthroid to 25 mcg 4 times a week, 50 mcg 3 times a week Urinary retention, Paraphgimosis-now reduced by Urology. Has a h/o BPH and urinary retention in the past -continue Andino as per Urology until more mobile and improved condition -Finasteride 5 mg PO qd -continue Flomax -Consult Urology Depression -Continue citalopram 20 mg PO qd Proph-heparin was discontinued due to EGD, now will restart as Hemoccult negative Dispo-Full Code -to [facility] when medically stable but may be on comfort care Palliative Care consult on Wednesday Documented By: Emerald Cavanaugh (Emerald Cavanaugh MD)
[2017-02-13] MEDS ORDERED: SODIUM PHOSPHATE INJ 21 MMOL in SODIUM CHLORIDE 0.9% 500ML 500 ML IV SCH (12:45)
--- NOTE | 2017-02-13 13:41 | ECHOCARDIOGRAM REPORT ---
*NOTICE TO RECEIVING [employer] This information is strictly Confidential and protected under [place] law. [place] law prohibits you from making any further disclosure of this information unless further disclosure is expressly permitted by the written consent of the person to whom it pertains or is authorized by law. A general authorization for the release of medical or other information is not sufficient for this purpose. Hospital accepts no responsibility if the information is made available to any other person, INCLUDING THE PATIENT. Interpretation Summary * Name: DANII IRWIN III Study Date: 02/13/2017 09:34 AM BP: 106/67 mmHg * Patient Location: [facility]\S\N279\S\1 HR: 81 * : 1945 (M/d/yyy) Gender: Male Height: 68 in * Age: 71 yrs Ethnicity: [place] Weight: 94 lb * Ordering Physician: Krystyna Yung * Performed By: Brenda Durbin * * Reason For Study: RUN OF V-TACH, DETERMINE EF * BSA: 1.5 m2 * -- Conclusions -- * 1. Normal LV size, normal LV wall thickness. * 2. Severe LV dysfunction. LVEF 25-30%. Akinetic mid to apical anterior, anteroseptal and septal campos consistent with LAD distribution infarct. * 3. Normal RV size, borderline RV function. * 4. Grade II diastolic dysfunction. * 5. No significant valvular pathology. * 6. No prior studies for comparison. Procedure Details * A complete two-dimensional transthoracic echocardiogram was performed (2D, M-mode, Doppler and color flow Doppler). * The study was technically difficult. * Limited views were obtained. * There were technical limitations due to patient's poor positioning, body habitus, and inability to cooperate. Left Ventricle * The left ventricle is grossly normal size. * There is normal left ventricular wall thickness. * Ejection Fraction = 25-30%. * There are regional wall motion abnormalities as specified. * There is septal akinesis. * There is anterior wall akinesis. * There is moderate inferior wall hypokinesis. Right Ventricle * The right ventricle is grossly normal size. * The right ventricular systolic function is borderline reduced. Atria * The left atrial size is normal. * Right atrial size is normal. * No ASD detected; PFO is not assessed. Mitral Valve * The mitral valve is grossly normal. * Mitral stenosis is absent. * Significant mitral regurgitation is absent. Tricuspid Valve * The tricuspid valve is not well visualized, but is grossly normal. * Significant tricuspid regurgitation is absent. Aortic Valve * The aortic valve opens well. * No hemodynamically significant valvular aortic stenosis. * There is no significant aortic regurgitation. Pulmonic Valve * The pulmonary valve is inadequately visualized, but the Doppler data is adequate for interpretation. * There is no pulmonic valvular stenosis. * There is no significant pulmonary regurgitation. Great Vessels * The aortic root and proximal ascending aorta are normal sized. Pericardium/Pleural * There is no pericardial effusion. Great Vessels * IVC <2.1, <50% change with respiration. Est RA 8 mmHg Left Ventricular Diastolic Function * Diastolic dysfunction, Grade II (pseudonormalization pattern). MMode 2D Measurements and Calculations IVSd 0.87 cm IVSs 1.0 cm LVIDd 4.2 cm LVIDs 3.6 cm LVPWd 0.99 cm LVPWs 1.3 cm IVS/LVPW 0.88 FS 14.9 % EDV(Teich) 79.0 ml ESV(Teich) 53.8 ml EF(Teich) 31.9 % EDV(cubed) 74.6 ml ESV(cubed) 46.0 ml EF(cubed) 38.4 % % IVS thick 15.8 % % LVPW thick 32.2 % LV mass(C)d 124.6 grams LV mass(C)dI 84.0 grams/m\S\2 LV mass(C)s 133.1 grams LV mass(C)sI 89.7 grams/m\S\2 CO(Teich) 1.9 l/min CI(Teich) 1.3 l/min/m\S\2 SV(Teich) 25.2 ml SI(Teich) 17.0 ml/m\S\2 CO(cubed) 2.2 l/min CI(cubed) 1.5 l/min/m\S\2 SV(cubed) 28.6 ml SI(cubed) 19.3 ml/m\S\2 ACS 1.5 cm LA dimension 2.8 cm LVOT diam 1.7 cm LVOT area 2.3 cm\S\2 LVAd ap4 24.5 cm\S\2 LVLd ap4 7.3 cm EDV(MOD-sp4) 66.6 ml LVAs ap4 19.6 cm\S\2 LVLs ap4 6.7 cm ESV(MOD-sp4) 46.8 ml EF(MOD-sp4) 29.7 % LVAd ap2 20.4 cm\S\2 LVLd ap2 6.4 cm EDV(MOD-sp2) 54.0 ml LVAs ap2 16.9 cm\S\2 LVLs ap2 6.3 cm ESV(MOD-sp2) 38.0 ml EF(MOD-sp2) 29.6 % CO(MOD-sp4) 1.5 l/min CI(MOD-sp4) 1.0 l/min/m\S\2 SV(MOD-sp4) 19.8 ml SI(MOD-sp4) 13.4 ml/m\S\2 CO(MOD-sp2) 1.2 l/min CI(MOD-sp2) 0.83 l/min/m\S\2 SV(MOD-sp2) 16.0 ml SI(MOD-sp2) 10.8 ml/m\S\2 Doppler Measurements and Calculations MV E max jenniffer 77.9 cm/sec MV A max jenniffer 53.0 cm/sec MV E/A 1.5 MV dec time 0.22 sec Ao V2 max 86.3 cm/sec Ao max PG 3.0 mmHg Ao max PG (full) 0.95 mmHg BARB(V,A) 1.9 cm\S\2 BARB(V,D) 1.9 cm\S\2 LV V1 max PG 2.0 mmHg LV V1 max 71.1 cm/sec PA V2 max 54.3 cm/sec PA max PG 1.2 mmHg
--- NOTE | 2017-02-13 15:58 | GASTROENTEROLOGY PROGRESS NOTE ---
DATE: 02/13/2017 DATE: 02/13/2017. SUBJECTIVE: I had the pleasure of seeing Rickie Mahmood at his bedside today. He states that he generally does not feel well. Nursing reports he has not had any bowel movements over the past shift. He did have some small smears on overnight, but the patient has not had any melena, hematochezia, hematemesis or other complaints noted to nursing. The patient himself denies any abdominal pain today, but does state that he does not feel well overall. He cannot elaborate. He is having minimal p.o. intake. PHYSICAL EXAMINATION: VITAL SIGNS: Temp 36.4, pulse 79, respirations 18, blood pressure 98/65, pulse ox 92% on 4 liters via nasal cannula. GENERAL EXAMINATION: He is awake. He is cooperative and he is chronic ill appearing. CHEST: Decreased breath sounds bilateral bases. CARDIOVASCULAR SYSTEM: Regular rate and rhythm. ABDOMEN: Soft, tender in the midepigastric area. Positive bowel sounds. LABORATORY STUDIES: From today include a white blood cell count of 10.29, hemoglobin 12.3, hematocrit 37.3 and a platelet count of 211. Sodium 140, potassium 4.6, chloride 107, bicarbonate 24, BUN 2, creatinine 0.51, blood glucose level of 102. Total CK of 456. IMPRESSION: This is a 71-year-old male with reported dysphagia status post dilation with EGD, gastritis and Clostridium difficile colitis. PLAN: At the present time, the patient is noted doing well on Protonix 40 mg p.o. q.a.m. He has been maintained on vancomycin 250 mg p.o. q.i.d. He has had no bowel movements in the last 8-12 hours and if he does not respond to p.o. vancomycin therapy consideration will be given to starting the patient on Dificid twice daily for resistant C. diff, although he seems to be responding at present. Once again, thanks for allowing me to participate in the care of this patient. If you have any further questions, please do not hesitate in contacting me.
[2017-02-13] MEDS: TAMSULOSIN HCL 0.4 MG CAP PO SCH (21:00)
[2017-02-13] MEDS: NYSTATIN SUSP 500,000 U/5 ML UDC PO SCH (21:12)
[2017-02-14] VITALS (14 sets, daily range): BP systolic 92–103; BP diastolic 56–63; PULSE 80–88; TEMP 36.1–36.8; O2SAT 85–94
[2017-02-14] MEDS: VANCOMYCIN PR SCH ×4 (01:00→17:31)
[2017-02-14] MEDS: IPRATROPIUM BROMIDE NEB SOLN 0.02% 2.5 ML VIAL INH SCH ×4 (01:43→19:10)
[2017-02-14] MEDS: LEVALBUTEROL 1.25MG/0.5ML NEB INH SCH ×4 (01:43→19:10)
[2017-02-14] MEDS: LEVOTHYROXINE 25 MCG TAB PO SCH (06:31)
[2017-02-14] MEDS: SODIUM CHLOR 0.45% + 20MEQ KCL 1,000 ML IV SCH ×2 (06:32→20:39)
[2017-02-14] MEDS: ARFORMOTEROL TART 15MCG/2ML VIAL INH SCH ×2 (06:52→19:05)
[2017-02-14 07:42] LABS: INR 1.2 (0.9-1.1); PROTHROMBIN TIME (PATIENT) 13.2 SECONDS (9.0-12.0)
[2017-02-14 07:57] LABS: BUN/CREATININE RATIO 3.8 (10-20); CALCIUM 7.7 mg/dl (8.5-10.1); CREATININE 0.48 mg/dl (0.60-1.40); MAGNESIUM 1.7 mg/dl (1.8-2.4); POTASSIUM 4.4 mmol/L (3.5-5.1)
[2017-02-14 08:03] LABS: PHOSPHORUS 2.9 mg/dl (2.5-4.9)
[2017-02-14] MEDS: BOOST PLUS VANILLA PO SCH ×6 (09:08→17:00)
[2017-02-14] MEDS: NYSTATIN SUSP 500,000 U/5 ML UDC PO SCH ×4 (09:10→20:41)
[2017-02-14] MEDS: FINASTERIDE 5 MG TAB PO SCH (09:10)
[2017-02-14] MEDS: PANTOprazole SOD 40 MG TAB PO SCH (09:10)
[2017-02-14] MEDS: POT PHOSPHATE MONOBASIC W/ SOD TAB PO SCH ×4 (09:10→20:42)
[2017-02-14] MEDS: VANCOMYCIN HCL 250 MG/5 ML SOLN PO SCH ×4 (09:11→20:42)
[2017-02-14] MEDS: RASPBERRY SYRUP 5 ML UDP PO SCH ×4 (09:11→20:42)
[2017-02-14] MEDS: THIAMINE HCL 100 MG TAB PO SCH (09:11)
[2017-02-14] MEDS: CITALOPRAM 20 MG TAB PO SCH (09:12)
[2017-02-14] MEDS: GABAPENTIN 100 MG CAP PO SCH ×3 (09:12→20:41)
[2017-02-14] MEDS: ENOXAPARIN 30 MG/0.3 ML SYR SQ SCH (09:14)
[2017-02-14] MEDS ORDERED: MAGNESIUM SULFATE 1GM / D5W 1 GM in PREMIXED IN D5W 100 ML IV ONE (09:30)
--- NOTE | 2017-02-14 10:52 | Cardiology Consultation ---
Cardiology Consultation Date of Consultation: Feb 14, 2017. Requesting Physician: Dr. Cavanaugh Reason for Consultation: Left ventricular dysfunction History of Present Illness This is a 71-year-old gentleman with a complex medical history which includes treated thyroid cancer, COPD, DVT with PE in the past, peripheral vascular disease with left leg above-knee amputation, recurrent C. difficile, long- standing ethanol abuse although possibly not ongoing. He has long-standing severe left ventricular dysfunction for which he has not wanted evaluation. He was admitted with a fall and weakness, was found to be hypoxic and hypercarbic as well as hypokalemic and had mild rhabdomyolysis. He appeared to be dehydrated on admission. Following admission his rhabdomyolysis has resolved with hydration, he continues to have dysphagia and his pulmonary status has improved. He does have anemia and hypophosphatemia. At the time of my evaluation he is resting in bed, he denies shortness of breath , he tells me he doesn't feel any differently today than he has in the past. He denies chest discomfort now or in the past. He tells me he is unaware of having any problem with his heart function. Past Medical/Surgical History (1) Thyroid cancer (2) Lower limb ischemia (3) History of above knee amputation (4) H/O thyroidectomy Family History No pertinent family history stated Social History Smoking Status: Current Every Day Smoker History of Alcohol Use: No Review of Systems Constitutional: + weakness, No fever, No weight loss Respiratory: + shortness of breath Cardiac: No chest pain Abdomen: No pain, No nausea, No vomiting, No diarrhea, No GI bleeding Male : No urinary frequency, No nocturia more than once/night, No slowing stream, No sexual dysfunction Neurologic: No paralysis, No weakness, No numbness/tingling, No balance problems Heme: No abnormal bleeding/bruising, No clotting problems Endo: No fatigue Skin: No problem reported All Other Systems: Reviewed and Negative Allergies Coded Allergies: No Known Allergies (Verified , 01/07/17) Medications Current Inpatient Medications Medications (Trade) Dose Ordered Sig/Sebastian Route Start Time Stop Time Status Last Admin Dose Admin Citalopram Hydrobromide (celeXA TAB) 20 mg QAM PO 02/10/17 09:00 03/12/17 08:59 02/14/17 09:12 20 MG Gabapentin (Neurontin Cap) 200 mg TID PO 02/10/17 09:00 03/12/17 08:59 02/14/17 09:12 200 MG Acetaminophen (Tylenol Tab) 650 mg Q4H PRN PO 02/10/17 02:00 03/12/17 01:59 02/13/17 06:27 650 MG Al Hydrox/Mg Hydrox/Simethicone (Maalox Max Susp) 15 ml Q4H PRN PO 02/10/17 02:00 03/12/17 01:59 Ondansetron HCl (Zofran Inj) 4 mg Q6H PRN IV 02/10/17 02:00 03/12/17 01:59 Thiamine HCl (Vitamin B-1 Tab) 100 mg QAM PO 02/10/17 09:00 03/12/17 08:59 02/14/17 09:11 100 MG Vancomycin HCl (Vancomycin Oral Soln) 250 mg QID PO 02/10/17 09:00 02/24/17 08:59 02/14/17 09:11 250 MG Finasteride (Proscar Tab) 5 mg QAM PO 02/10/17 09:00 03/12/17 08:59 02/14/17 09:10 5 MG Raspberry (Raspberry Syrup 5ml Cup) 5 ml QID PO 02/10/17 09:00 02/24/17 08:59 02/14/17 09:11 5 ML Levothyroxine Sodium (Synthroid Tab) 25 mcg SuTuThSa@0630 PO 02/11/17 06:30 03/13/17 06:29 02/14/17 06:31 25 MCG Folic Acid (Folvite Tab) 1 mg QAM PO 02/11/17 09:00 03/13/17 08:59 02/14/17 09:13 1 MG Levothyroxine Sodium (Synthroid Tab) 50 mcg MoWeFr@0630 PO 02/12/17 06:30 03/14/17 06:29 02/12/17 04:58 50 MCG Arformoterol Tartrate (Brovana 15MCG/ 2ML Neb Soln) 15 mcg BIDR INH 02/10/17 20:00 03/12/17 19:59 02/14/17 06:52 15 MCG Albuterol Sulfate (Ventolin 0.083% 2.5MG/3ML Neb) 2.5 mg Q6R PRN INH 02/10/17 14:45 03/12/17 14:44 Ipratropium [place] (Atrovent 0.02% 0.5MG/2.5ML Neb) 0.5 mg Q6R INH 02/10/17 21:00 03/12/17 20:59 02/14/17 01:43 0.5 MG Levalbuterol (Xopenex 1.25MG/ 0.5ML Neb) 1.25 mg Q6R INH 02/10/17 21:00 03/12/17 20:59 02/14/17 01:43 1.25 MG Enteral Nutritional Formula (Boost Plus Vanilla) 1 can TIDM PO 02/11/17 08:00 03/13/17 07:59 02/14/17 09:08 1 CAN Pantoprazole Sodium (Protonix Tab) 40 mg QAM PO 02/11/17 09:00 03/13/17 08:59 02/14/17 09:10 40 MG Potassium/ Phosphorus/Sodium (Phospha 250 Neutral 155-852-130 Mg) 1 tab QID PO 02/12/17 17:00 03/14/17 16:59 02/14/17 09:10 1 TAB Cholestyramine Resin (Questran Powder Light) 4 gm BID@, PO 02/12/17 22:00 03/14/17 21:59 02/13/17 22:32 4 GM Vancomycin HCl (Vancomycin Enema) 250 mg Q6 OR 02/12/17 18:00 02/26/17 17:59 02/14/17 06:30 250 MG Tamsulosin HCl (Flomax Cap) 0.4 mg HS PO 02/13/17 21:00 03/15/17 20:59 02/13/17 21:00 0.4 MG Enoxaparin Sodium (Lovenox Inj) 30 mg DAILY SQ 02/13/17 09:00 03/15/17 08:59 02/14/17 09:14 30 MG Potassium Chloride/Sodium Chloride 1,000 ml @ 75 mls/hr [id number] IV 02/13/17 18:00 03/15/17 17:59 02/14/17 06:32 75 MLS/HR Nystatin (Mycostatin Susp) 5 ml QID PO 02/13/17 21:00 02/23/17 20:59 02/14/17 09:10 5 ML Magnesium Sulfate 1 gm/Prmx 100 ml @ 100 mls/hr NOW ONCE IV 02/14/17 09:30 02/14/17 10:29 02/14/17 09:31 100 MLS/HR Physical Exam Vital Signs Past 12 Hours Date Time Temp Pulse Resp B/P (MAP) Pulse Ox O2 Delivery O2 Flow Rate FiO2 02/14/17 07:29 36.6 85 20 99/63 (75) 89 Nasal Cannula 4.0 02/14/17 06:53 84 16 85 Nasal Cannula 3.0 02/14/17 04:00 Nasal Cannula 4.0 02/14/17 04:00 36.6 86 20 92/57 (69) 90 Nasal Cannula 4.0 02/14/17 01:43 84 20 91 Nasal Cannula 4.0 02/14/17 00:06 36.8 84 18 102/56 (71) 94 4.0 02/14/17 00:00 Nasal Cannula 4.0 Constitutional: General Apperance: cachectic Level of Distress: chronically ill Ambulation: limited ambulation Psychiatric: Mental Status: lethargic Head: normocephalic Eyes: EOM: EOMI ENMT: normal ENT inspection, hearing grossly normal Neck: supple, no masses Lungs: Respiratory effort: no dyspnea, good air movement Auscultation: no wheezing, no rales/crackles, deminished air movement Cardiovascular: Heart Auscultation: RRR, no murmurs, no rubs, no gallops Peripheral Pulses: Bruits: none appreciated Abdomen: Bowel Sounds: normal Inspection & Palpation: soft, no tenderness, guarding & rebound, no masses Extremities: no edema, pertinent finding (left leg amputation) Neurologic: Cranial Nerves: grossly intact Sensation: grossly intact Data Laboratory Results: Last 24 Hours Test 02/13/17 18:00 02/14/17 07:00 Prothrombin Time 13.2 SECONDS Prothromb Time International Ratio 1.2 Sodium Level 139 mmol/L Potassium Level 4.4 mmol/L Chloride Level 107 mmol/L Carbon Dioxide Level 25 mmol/L Anion Gap 7.0 mmol/L Blood Urea Nitrogen 2 mg/dl Creatinine 0.48 mg/dl Est Creatinine Clear Calc Drug Dose 86.5 ml/min Estimated GFR () 129.4 Estimated GFR (Non- 111.7 BUN/Creatinine Ratio 3.8 Random Glucose 103 mg/dl Calcium Level 7.7 mg/dl Phosphorus Level 2.9 mg/dl Magnesium Level 1.7 mg/dl Total Creatine Kinase 276 U/L Imaging: Chest x-ray: On admission shows emphysema but no CHF Echocardiogram: Echocardiography shows normal left ventricular size with severe left ventricular dysfunction, ejection fraction 25-30%. He does have wall motion abnormalities. EKG: An electrocardiogram done 02/13/2017 shows sinus rhythm with low voltage and an anterior myocardial infarction. Prior electrocardiograms have shown frequent ventricular ectopy. Telemetry reviewed: Sinus rhythm, no significant arrhythmia Assessment & Plan #1. Cardiomyopathy: He has a severe cardiomyopathy which is almost certainly ischemic, he has wall motion abnormalities and his electrocardiogram shows an old anterior myocardial infarction. In 2002 his echocardiogram showed normal ventricular function and a stress test at that time was negative for ischemia. It evidently has had an interim infarction. He is not interested in invasive evaluation. We should treat him for his cardiomyopathy, although our options are limited with his blood pressure. Ideally we would place him on beta- blockade and Keanu inhibition but at this point I'm not sure we can. #2. Coronary disease: Although we have not identified coronary disease specifically his echocardiogram, electrocardiogram and the presence of peripheral vascular disease suggest that he has significant coronary artery disease. He does not seem to have symptoms of it, his stress test in 2002 was done for chest discomfort but that was negative for ischemia. At this point he is not interested in evaluation but we should probably treat him for coronary artery disease. His LDL is extremely low (35) and although LDL does not correlate terribly well with risk of coronary disease I don't think we should consider statin therapy at this time, especially in view of his alcoholism and potential for liver problems. He does not appear to be a good aspirin candidate at this time with his anemia. For the moment therefore there is probably little that we can do. His blood pressure would probably not support beta-blockade. #3. Congestive heart failure: He does not appear to have congestive heart failure currently, although I suspect he would be prone to it. I would agree with gentle hydration and electrolyte replenishment. I don't know that he needs a diuretic but that will have to be watched and managed as an outpatient. He does not seem interested in aggressive evaluation or treatment, palliative care may be reasonable. Thank you for allowing me to participate in his care.
[2017-02-14] MEDS: ACETAMINOPHEN 325 MG TAB PO PRN (13:19)
--- NOTE | 2017-02-14 13:46 | Hospitalist Progress Note ---
Hospitalist Progress Note Date of Service Feb 14, 2017. (Krystyna Yung ., DB-C) Subjective Pt evaluation today including: conversation w/ patient, physical exam, chart review, lab review, conversation w/ crm consultant (spoke with Dr. Marcial), review of inpatient medication list Pain: None PO Intake: Poor appetite Voiding: andino catheter in place Patient reports feeling better today, although he does seem to be more lethargic. He denies any pain currently and states his nausea has resolved. The patient denies diarrhea, but per nursing he did have a few loose stools this morning. Overall, frequency of the diarrhea seems to be slowing down. The patient denies fevers, chills, sweats, chest pain, palpitations, claudication, cough, wheezing, shortness of breath, nausea, vomiting, abdominal pain, dysuria, hematuria, urinary retention, paralysis, weakness, numbness and tingling. Additional Comments: See HPI for pertinent positives and negatives. All other systems reviewed and negative. (Krystyna Yung ., PA-C) Objective Vital Signs Date Time Temp Pulse Resp B/P (MAP) Pulse Ox O2 Delivery O2 Flow Rate FiO2 02/14/17 11:15 36.4 86 20 93/60 (71) 92 Nasal Cannula 2.0 02/14/17 07:29 36.6 85 20 99/63 (75) 89 Nasal Cannula 4.0 02/14/17 06:53 84 16 85 Nasal Cannula 3.0 02/14/17 04:00 Nasal Cannula 4.0 02/14/17 04:00 36.6 86 20 92/57 (69) 90 Nasal Cannula 4.0 02/14/17 01:43 84 20 91 Nasal Cannula 4.0 02/14/17 00:06 36.8 84 18 102/56 (71) 94 4.0 02/14/17 00:00 Nasal Cannula 4.0 02/13/17 20:00 92 Nasal Cannula 4.0 02/13/17 19:56 36.4 80 18 109/70 (83) 92 4.0 02/13/17 19:19 88 16 92 Nasal Cannula 4.0 02/13/17 16:00 92 Nasal Cannula 4.0 02/13/17 14:49 36.4 79 18 98/65 (76) 92 Nasal Cannula 4.0 02/13/17 14:09 74 16 91 Nasal Cannula 4.0 (Krystyna Yung ., PA-C) Physical Exam Notes: General Appearance: no apparent distress, + cachetic, + pertinent finding ( difficult to understand speech) Eyes: normal inspection, PERRL, EOMI ENT: normal ENT inspection, hearing grossly normal, + pertinent finding (white exudate posterior pharynx) Neck: supple, no JVD, trachea midline Respiratory/Chest: lungs clear, normal breath sounds, no respiratory distress, Cardiovascular: regular rate, rhythm, no gallop, no murmur Abdomen: normal bowel sounds, non tender, soft Extremities: non-tender, + pertinent finding (L AKA, RLE venous stasis changes) Neurologic/Psychiatric: normal mood/affect, oriented x 3, + pertinent finding ( more lethargic today) Skin: normal color, warm/dry, no rash (Krystyna Yung ., DB-C) Laboratory Results Last 24 Hours Test 02/13/17 18:00 02/14/17 07:00 Prothrombin Time 13.2 SECONDS Prothromb Time International Ratio 1.2 Sodium Level 139 mmol/L Potassium Level 4.4 mmol/L Chloride Level 107 mmol/L Carbon Dioxide Level 25 mmol/L Anion Gap 7.0 mmol/L Blood Urea Nitrogen 2 mg/dl Creatinine 0.48 mg/dl Est Creatinine Clear Calc Drug Dose 86.5 ml/min Estimated GFR () 129.4 Estimated GFR (Non- 111.7 BUN/Creatinine Ratio 3.8 Random Glucose 103 mg/dl Calcium Level 7.7 mg/dl Phosphorus Level 2.9 mg/dl Magnesium Level 1.7 mg/dl Total Creatine Kinase 276 U/L (Krystyna Yung ., PA-C) Assessment and Plan 71 y/o male with a history of recurrent C. diff colitis, COPD, h/o alcoholism, thyroid cancer s/p thyroidectomy and hypothyroidism, BPH, depression, h/o DVT/PE , and L AKA who presents following a fall. He was on the ground for about 8 hours until he was found by his son. The patient was found to have severe hypokalemia on arrival as well as hypoxia and hypercarbia. Hypokalemia--resolved -Admitted to telemetry. Pt in SR overnight, HR between 70s-80s -Potassium 2.1 on arrival. Patient received total 60 mEq KCl IV upon admission/ during his first night. -Potassium improved to 2.5 the following morning, was given another 40 mEq IV -Potassium remains stable in 4s -Magnesium low at 1.6 on 02/14, given 1 gm mag sulfate IV H/o v-tach this admission 02/10 -Echo: * 1. Normal LV size, normal LV wall thickness. * 2. Severe LV dysfunction. LVEF 25-30%. Akinetic mid to apical anterior, anteroseptal and septal campos consistent with LAD distribution infarct. * 3. Normal RV size, borderline RV function. * 4. Grade II diastolic dysfunction. * 5. No significant valvular pathology. -Cardiology consulted, appreciate recs: Severe cardiomyopathy likely ischemic. Ideally place on BB and ACEi, but limited due to low blood pressure. Pt does not want invasive evaluation or treatment. Evaluation suggests coronary artery disease. Not a good candidate for statin as LDL is low and pt has h/o alcoholism and potential for liver problems. Not a good candidate for aspirin right now due to anemia. Suspect pt is prone to CHF although does not appear to be in CHF currently. Agree with gentle hydration and electrolyte replenishment. Hypophosphatemia--resolved -Phosphorus 1.7 on 02/13 -Given another 21 mmol neutra phos IV x 1, continue to monitor -Phos 2.9 on 02/14 Acute anemia, blood loss/melanotic stools vs dilutional--stable/improving -Hemoglobin dropped to 11.6 on 02/10 from 15.5 -Hgb stable/improving, at 12.3 on 02/13 -Fecal occult blood pending -GI consulted, appreciate recs: Continue Protonix, advance diet as tolerated -Vitamin B12 and folate within normal limits -EGD on 02/11: moderate benign intrinsic esophageal stenosis which was dilated with scope. Medium hiatal hernia. Moderate inflammation w/erosions in gastric antrum. Biopsies taken. Duodenum normal. -Gastric biopsy pathology: benign gastric mucosa w/foveolar hyperplasia. Negative for gastritis, intestinal metaplasia, dysplasia and carcinoma. No H. Pylori Hypoxia and hypercarbia, h/o COPD--stable -O2 by protocol -Pulmonology consulted, appreciate recs: Started on Brovana and Xopenex/ Atrovent nebs Acute C diff colitis--stable -C. difficile positive -Flagyl IV d/c'd -Continue PO vancomycin (day #5) and vancomycin enemas q6hn (day #3) -GI on board: can consider Dificid if failing vancomycin, but appears to be having a response Dysphagia/odynophagia - Speech therapy evaluate and treat: moist, pureed diet with nectar thick liquids, no straw, aspiration precautions, sit fully upright for meals -Video swallow: silent aspiration on thin barium Rhabdomyolysis--resolved -CK 1575 on admission -CK 276 on 02/14 -Continue IVF as not eating adequately, rate decreased to 75 cc/hr History of alcohol abuse--states he hasn't drank in 5-6 weeks -Continue thiamine 100 mg PO qd -Continue folate 1 mg PO qd H/o thyroid cancer s/p thyroidectomy, hypothyroidism -TSH low -Free T4 WNL, free T3 low -Decrease Synthroid to 25 mcg 4 times a week, 50 mcg 3 times a week Urinary retention/penile swelling--stable -Andino placed -Finasteride 5 mg PO qd -Continue Flomax 0.4 mg PO qd -Urology consulted, appreciate recs: paraphimosis which was reduced at bedside. Continue Flomax and Proscar and catheter Depression -Continue citalopram 20 mg PO qd -Psych consulted, appreciate recs. Depression may be contributing to pt's poor appetite. Spoke with Pat Mueller, she will see Wednesday. Psych liaison will see today. Cachexia, severe protein calorie malnutrition -Continue Boost DVT prophylaxis -Heparin 5000 units SC q8h Code Status -Level I, FULL RESUSCITATION STATUS Dispo -PT evaluated, recommend ECF when medically stable. -Palliative care consulted (Krystyna Yung ., BRUNO) Reviewed: Pt Seen/Exam by Me (Emerald Cavanaugh MD) History Physician Dental Coordinator Supervision Note: I interviewed and examined the patient. Discussed with DB Yung and agree with findings and plan as documented in the note. Any exceptions or clarifications are listed here: Pt admits to feeling depressed today. Says he does not want any invasive procedures like cardiac cath. UOP is decreased and O2 requirement going up today. BPs remain quite low VSS, tele NSR cachectic, lying in bed, very difficult to understand his speech RRR no murmur audible diminished BS throughout now with bibasilar crackles Abd +BS, soft, NT ND Ext: right leg no edema, +sarcopenia diffusely Skin: no rashes 71 y/o male with a history of recurrent C. 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 With rhabdomyolysis here and profound hypokalemia secondary to GI losses plus poor po intake likely. He was on the ground for about 8 hours until he was found by his son. The patient was also found to have hypoxia and hypercarbia on arrival. Recurrent C. diff colitis-4th recurrence, did not improve much at all in December after 10 day course Vanco. Improving with less stool today. Stool culture negative -continue Vanco enemas in addition to high dose po Vanco dc IVFs, now fluid overloaded -cont Questran -Appreciate GI consultation -consider fecal transplant in future -stopped IV Flagyl as not seeming to help -f/u stool O&P NSVT, New Acute Systolic CHF/Acute on Chronic diastolic CHF-this evening is now developing evidence of volume overload/Prolonged QT- LV function EF 25-30%, severe, with grade 2 diastolic dysfunction -stop IVFs now and give lasix 20mg IV x 1, may need more lasix in the AM on Wednesday -continue tele monitoring -pt does not think he would want to pursue a cardiac cath, discussed possible need down the road for ICD/defib and son does not think pt would want that either Weakness, fall,cachexia,severe protein calorie malnutrition, rhabdomyolysis-all likely secondary to recurrent chronic diarrhea, h/o EtOH abuse, poor intake. CK trended downward -Nutrition and Speech consults appreciated -continue supplements as tolerated Dysphagia, Aspiration, h/o partial glossectomy for SCC and neck dissection for thyroid CA- CT esophageal wall thickening on imaging--> EGD with benign appearing esophageal stenosis dilated with scope, moderate gastritis biopsied-->biopsies negative for CA -continue PPI -aspiration and Speech precautions: pureed diet with nectar thick liquids, no straw, aspiration precautions, sit fully upright for meals -Considering failure to thrive and overall deconditioning, discussed with family and patient--> son requesting/agreeable to Palliative Care consult as is not wanting to eat or pursue aggressive rehab or any aggressive procedures in future -SNF placement will be needed when diarrhea improving Anemia, macrocytic--> drop from admission secondary to previous hemoconcentration and then dilutional from IVFs -Hemoglobin dropped to 11.6 on 02/10 from 15.5 -Fecal occult blood negative, Vitamin B12 and folate within normal limits -Likely secondary to EtOH abuse -abstinence from EtOH -follow CBC periodically Acute hypoxemic and hypercarbic respiratory failure, COPD, Current smoker-- worsening now secondary to acute systolic CHF -O2 by protocol -IV lasix, follow UOP -Pulmonology consulted, appreciate recs: Started on Brovana and Xopenex/ Atrovent nebs Urinary retention, Paraphimosis-now reduced by Urology. Has a h/o BPH and urinary retention in the past -continue Andino as per Urology until more mobile and improved condition -Finasteride 5 mg PO qd -continue Flomax -Consult Urology Depression -Continue citalopram 20 mg PO qd -consult Psychiatry Proph-heparin Dispo-Full Code -to [facility] when medically stable but may be on comfort care Palliative Care consult on Wednesday Documented By: Emerald Cavanaugh (Emerald Cavanaugh MD)
--- NOTE | 2017-02-14 14:58 | GASTROENTEROLOGY PROGRESS NOTE ---
DATE: 02/14/2017 AGE: 71. SEX: Male. RACE: . SUBJECTIVE: I had the pleasure of seeing Rickie Mahmood today at his bedside. Nursing reports that he has had no diarrhea overnight. He did have a single smear this morning in his undergarments, though no gross diarrhea. The patient himself continues to complain of general malaise. He is having decreased p.o. intake per nursing staff, but he denies any abdominal pain, fevers, chills, nausea, vomiting, hematemesis, melena or hematochezia. PHYSICAL EXAMINATION: VITAL SIGNS: Include temp 36.4, pulse 86, respirations 20, blood pressure 93/60, and pulse ox 92% on 2 liters via nasal cannula. GENERAL: Awake and depressed mood. CHEST: Decreased breath sounds at bilateral bases. CARDIOVASCULAR SYSTEM: Regular rate and rhythm. ABDOMEN: Soft, nontender, and nondistended. Positive bowel sounds. EXTREMITIES: No clubbing, cyanosis, or edema. 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 TODAY'S LABORATORY STUDIES: From today include a white blood cell count of 10.29, hemoglobin 12.3, hematocrit 37.3 and a platelet count of 211. His sodium is 139, potassium 4.4, chloride 107, bicarbonate 25, BUN 2, and creatinine 0.48. Blood glucose level was 103. Gastric biopsies from February 11 showed benign gastric mucosa, negative for gastritis. No H. pylori was seen. IMPRESSION: A 71-year-old male with Clostridium difficile colitis with improvement in symptoms, reported dysphagia with dilation of esophageal stricture status post EGD and negative biopsies for gastritis. PLAN: At the present time, I would recommend continuing him on Protonix 40 mg p.o. q.a.m. I would also recommend continuing him on vancomycin 250 mg p.o. q.i.d. for a total of 10 days. I did discuss this case in detail with Dr. Cavanaugh of the hospitalist team and we both felt that it would be in the patient's best interest to undergo psychiatric consultation as he does appear depressed and this could explain his decreased appetite as well as depressed mood. Other considerations would be to consult hospice due to the patient's multiple medical comorbidities. We will await a psychiatric consultation and make further recommendations based on these findings. Once again, thanks for allowing me to participate in the care of this patient. If you have any further questions, please do not hesitate in contacting me.
[2017-02-14] MEDS: CHOLESTYRAMINE LIGHT 4 GM PKT PO SCH ×2 (15:40→22:36)
[2017-02-14] MEDS: TAMSULOSIN HCL 0.4 MG CAP PO SCH (20:41)
[2017-02-14] MEDS: FUROSEMIDE INJ 20 MG in SYRINGE 0 ML IV ONE (23:35)
[2017-02-15] MEDS: FUROSEMIDE INJ 20 MG in SYRINGE 0 ML IV ONE (00:01)
[2017-02-15 02:00] VITALS: PULSE 88; O2SAT 88
[2017-02-15] MEDS: LEVALBUTEROL 1.25MG/0.5ML NEB INH SCH ×3 (02:00→14:32)
[2017-02-15] MEDS: IPRATROPIUM BROMIDE NEB SOLN 0.02% 2.5 ML VIAL INH SCH ×3 (02:00→14:32)
[2017-02-15 02:12] VITALS: BP 102/69
[2017-02-15 04:00] VITALS: BP 113/71; PULSE 87; TEMP 36.5; O2SAT 90
[2017-02-15] MEDS: LEVOTHYROXINE 50 MCG TAB PO SCH (06:21)
[2017-02-15] MEDS: VANCOMYCIN PR SCH ×3 (06:21→12:00)
[2017-02-15] MEDS: ARFORMOTEROL TART 15MCG/2ML VIAL INH SCH (07:24)
[2017-02-15 07:25] VITALS: PULSE 86; O2SAT 90
[2017-02-15 07:48] VITALS: BP 98/63; PULSE 84; TEMP 36.6; O2SAT 91
[2017-02-15] MEDS: BOOST PLUS VANILLA PO SCH ×4 (08:00→12:00)
[2017-02-15 08:04] LABS: BUN/CREATININE RATIO 6.1 (10-20); CALCIUM 8.1 mg/dl (8.5-10.1); CREATININE 0.59 mg/dl (0.60-1.40); MAGNESIUM 2.1 mg/dl (1.8-2.4); POTASSIUM 4.4 mmol/L (3.5-5.1)
[2017-02-15 08:05] LABS: PHOSPHORUS 3.1 mg/dl (2.5-4.9)
--- NOTE | 2017-02-15 09:22 | Progress Note ---
Subjective Date of Service: Feb 15, 2017. Subjective Pt evaluation today including: conversation w/ patient, chart review, lab review Voiding: andino catheter in place (patent, draining clear, yellow urine) 71 yo male with UR and paraphimosis. Paraphimosis reduced previously by Dr. Decker. Penis now swollen, but foreskin covering glans. The pt is confused this morning, attempting to sit up on the side of the bed. Problem List Medical Problems: (1) C. difficile colitis Status: Acute (2) Colitis Status: Acute (3) DVT (deep venous thrombosis) Status: Acute (4) Pulmonary emboli Status: Acute Review of Systems Pt confused. Denies pain, but unable to answer other questions appropriately. Objective Vital Signs Date Time Temp Pulse Resp B/P (MAP) Pulse Ox O2 Delivery O2 Flow Rate FiO2 02/15/17 08:00 Oxymask 13.0 02/15/17 07:48 36.6 84 16 98/63 (75) 91 Mask 12.0 02/15/17 07:25 86 22 90 Mask 12.0 02/15/17 04:00 Oxymask 13.0 02/15/17 04:00 36.5 87 20 113/71 (85) 90 02/15/17 02:12 102/69 (80) 02/15/17 02:00 88 20 88 Mask 10.0 02/15/17 00:00 Nasal Cannula 4.0 02/14/17 23:50 94 Oxymask 10.0 02/14/17 23:49 87 20 87 Nasal Cannula 6.0 02/14/17 23:33 36.5 85 22 100/62 (75) 88 Nasal Cannula 6.0 02/14/17 20:09 36.1 83 20 100/63 (75) 90 Nasal Cannula 4.0 02/14/17 20:00 Nasal Cannula 4.0 02/14/17 19:10 88 20 91 Nasal Cannula 4.0 02/14/17 16:00 Nasal Cannula 4.0 02/14/17 14:50 36.5 80 18 103/62 (76) 90 Nasal Cannula 4.0 02/14/17 12:00 89 Nasal Cannula 4.0 02/14/17 11:15 36.4 86 20 93/60 (71) 92 Nasal Cannula 2.0 Physical Exam General Appearance: no apparent distress Eyes: normal inspection ENT: hearing grossly normal Neck: no JVD Respiratory/Chest: no respiratory distress, no accessory muscle use Cardiovascular: no JVD Extremities: normal inspection Neurologic/Psychiatric: alert, normal mood/affect, + pertinent finding (pt confused) Skin: normal color Laboratory Results Last 24 Hours Test 02/15/17 07:06 Sodium Level 140 mmol/L Potassium Level 4.4 mmol/L Chloride Level 107 mmol/L Carbon Dioxide Level 25 mmol/L Anion Gap 8.0 mmol/L Blood Urea Nitrogen 4 mg/dl Creatinine 0.59 mg/dl Est Creatinine Clear Calc Drug Dose 71.8 ml/min Estimated GFR () 118.9 Estimated GFR (Non- 102.6 BUN/Creatinine Ratio 6.1 Random Glucose 91 mg/dl Calcium Level 8.1 mg/dl Phosphorus Level 3.1 mg/dl Magnesium Level 2.1 mg/dl Assessment and Plan 1. Paraphimosis Resolved. Continue to clean penis daily with soap and water and pull foreskin back down over the glans to ensure no recurrence. 2. Urinary retention Continue Flomax and finasteride. May attempt a TOV when confusion, strength, and mobility have improved. No further management at this time. Recall PRN issues. Will arrange for outpatient f/u in 2-3 weeks.
--- NOTE | 2017-02-15 09:24 | Cardiology Follow-Up ---
Subjective Date of Service: Feb 15, 2017. Pt evaluation today including: conversation w/ patient, physical exam, lab review, review of studies, review of inpatient medication list History of Present Illness This is a 71-year-old gentleman with a complex medical history which includes treated thyroid cancer, COPD, DVT with PE in the past, peripheral vascular disease with left leg above-knee amputation, recurrent C. difficile, long- standing ethanol abuse although possibly not ongoing. He has long-standing severe left ventricular dysfunction for which he has not wanted evaluation. He was admitted with a fall and weakness, was found to be hypoxic and hypercarbic as well as hypokalemic and had mild rhabdomyolysis. He appeared to be dehydrated on admission. Following admission his rhabdomyolysis has resolved with hydration, he continues to have dysphagia and his pulmonary status has improved. He does have anemia and hypophosphatemia. He had a run of VT on 02/10/2017. Today he has no complaints but is not very communicative. Denies cardiovascular symptoms. Social History Smoking Status: Current Every Day Smoker History of Alcohol Use: No Review of Systems Respiratory: + shortness of breath Cardiac: No chest pain Medications No cardiovascular: Objective Vital Signs Past 12 Hours Date Time Temp Pulse Resp B/P (MAP) Pulse Ox O2 Delivery O2 Flow Rate FiO2 02/15/17 08:00 Oxymask 13.0 02/15/17 07:48 36.6 84 16 98/63 (75) 91 Mask 12.0 02/15/17 07:25 86 22 90 Mask 12.0 02/15/17 04:00 Oxymask 13.0 02/15/17 04:00 36.5 87 20 113/71 (85) 90 02/15/17 02:12 102/69 (80) 02/15/17 02:00 88 20 88 Mask 10.0 02/15/17 00:00 Nasal Cannula 4.0 02/14/17 23:50 94 Oxymask 10.0 02/14/17 23:49 87 20 87 Nasal Cannula 6.0 02/14/17 23:33 36.5 85 22 100/62 (75) 88 Nasal Cannula 6.0 Last Recorded Weight-Kilograms: 43.600 Physical Exam Constitutional: General Apperance: cachectic Level of Distress: chronically ill Ambulation: limited ambulation Lungs: Respiratory effort: no dyspnea, good air movement Auscultation: no wheezing, no rales/crackles, deminished air movement Cardiovascular: Heart Auscultation: RRR, no murmurs, no rubs, no gallops Peripheral Pulses: Bruits: none appreciated Extremities: no edema, pertinent finding (left leg amputation) Data Laboratory Results: Last 24 Hours Test 02/15/17 07:06 Sodium Level 140 mmol/L Potassium Level 4.4 mmol/L Chloride Level 107 mmol/L Carbon Dioxide Level 25 mmol/L Anion Gap 8.0 mmol/L Blood Urea Nitrogen 4 mg/dl Creatinine 0.59 mg/dl Est Creatinine Clear Calc Drug Dose 71.8 ml/min Estimated GFR () 118.9 Estimated GFR (Non- 102.6 BUN/Creatinine Ratio 6.1 Random Glucose 91 mg/dl Calcium Level 8.1 mg/dl Phosphorus Level 3.1 mg/dl Magnesium Level 2.1 mg/dl Telemetry reviewed: SR, no further VT Assessment and Plan #1. Cardiomyopathy: He has a severe cardiomyopathy which is almost certainly ischemic, he has wall motion abnormalities and his electrocardiogram shows an old anterior myocardial infarction. In 2002 his echocardiogram showed normal ventricular function and a stress test at that time was negative for ischemia. It evidently has had an interim infarction. He is not interested in invasive evaluation. We should treat him for his cardiomyopathy, although our options are limited with his blood pressure and severe lung disease. Ideally we would place him on beta-blockade and Keanu inhibition but at this point I still don't think we can. #2. Coronary disease: Although we have not identified coronary disease conclusively his echocardiogram, electrocardiogram and the presence of peripheral vascular disease suggest that he has significant coronary artery disease. He does not seem to have symptoms of it, his stress test in 2002 was done for chest discomfort but that was negative for ischemia. At this point he is not interested in evaluation but we should probably treat him for coronary artery disease. His LDL is extremely low (35) and although LDL does not correlate terribly well with risk of coronary disease I don't think we should consider statin therapy at this time, especially in view of his alcoholism and potential for liver problems. He does not appear to be a good aspirin candidate at this time with his anemia. For the moment therefore there is probably little that we can do. His blood pressure would probably not support beta-blockade. #3. Congestive heart failure: He does not appear to have congestive heart failure currently, although I suspect he would be prone to it. I don't know that he needs a diuretic but that will have to be watched and managed as an outpatient. #4. VT: Would not treat specifically, beta blockers may help if he can tolerate them. He does not seem interested in aggressive evaluation or treatment, palliative care may be reasonable. Thank you for allowing me to participate in his care.
[2017-02-15 09:42] LABS: HEMATOCRIT 34.2 % (42-52); MEAN CELL VOLUME 98.6 fL (80-100); MEAN CORPUSCULAR HEMOGLOBIN 32.3 pg (25-34); MEAN CORPUSCULAR HGB CONC 32.7 g/dl (32-36); MEAN PLATELET VOLUME 9.8 fL (7.4-10.4); PLATELET COUNT 214 K/uL (130-400); RED BLOOD COUNT 3.47 M/uL (4.7-6.1); WHITE BLOOD COUNT 13.88 K/uL (4.8-10.8)
--- NOTE | 2017-02-15 09:57 | Psychiatric Consultation ---
Consultation Date of Consultation Feb 15, 2017. Identifying Data Rickie Mahmood is a 71-year-old male who currently lives in alone in [place]. Patient was quite confused this am so bulk of history provided by son. Consult is by Dr. Yung for depression. Chief Complaint "where's my chair?". History of Present Illness The patient was assessed yesterday the liaison nurse who described waxing/ waning MS changes and confusion--believed he was in the mine rather than the hospital and asking for a cigarette. The patient's son feels that his dad has been "sharp" and that his mood seemed OK until about 3-4 weeks ago. He does feel that his father suffers from some degree of seasonal depression in winter as doesn't do as much but mainly "looks forward to getting outside". Son Rickie lives 15 min away and is often at the home. He is concerned about his dad's appetite stating that he got him shrimp (his favorite) for father's day and he wouldn't even eat it. He states that dad has taken celexa same dose for 15 years without problems (since his CA surgery). He is concerned that his dad can no longer care for himself at home, particularly given recent fall with hypoxia, rhabdo and recovery complicated by Cdif. He states that his father does drink "3 bourbon and cokes" every night and "probably more". Mr. Mahmood may have reported visual hallucinations last pm. Past Psychiatric History Current OP Treatment: no current treatment Prior OP Treatment: no prior treatment Prior Psych Hospitalizations: none Access to a Gun: No Suicide Attempts: No Past Medical/Surgical History (1) Hypokalemia (2) Rhabdomyolysis (3) Thyroid cancer (4) History of above knee amputation (5) H/O thyroidectomy Allergies Allergies: Coded Allergies: No Known Allergies (Verified , 01/07/17) Home Medications Scheduled Citalopram (Citalopram Hydrobromide), 20 MG PO QAM Gabapentin (Neurontin), 200 MG PO TID Levothyroxine Sodium (Levothyroxine Sodium), 50 MCG PO QAM Scheduled PRN Acetaminophen (Tylenol Arthritis Ext Rel), 650 MG PO BID PRN for Pain Family History No pertinent family history stated History of Suicide: No History of Substance Abuse: No Psychiatric History: No Alcohol Use Alcohol Use In Past 12 Months: Yes see above, patient misrepresented Smoking Use Smoking Status: Current Every Day Smoker Substance History denied Personal History 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 Children: 2 Review of Systems patient unable to complete due to AMS Examination Vital Signs Vital Signs Past 12 Hours Date Time Temp Pulse Resp B/P (MAP) Pulse Ox O2 Delivery O2 Flow Rate FiO2 02/15/17 08:00 Oxymask 13.0 02/15/17 07:48 36.6 84 16 98/63 (75) 91 Mask 12.0 02/15/17 07:25 86 22 90 Mask 12.0 02/15/17 04:00 Oxymask 13.0 02/15/17 04:00 36.5 87 20 113/71 (85) 90 02/15/17 02:12 102/69 (80) 02/15/17 02:00 88 20 88 Mask 10.0 02/15/17 00:00 Nasal Cannula 4.0 02/14/17 23:50 94 Oxymask 10.0 02/14/17 23:49 87 20 87 Nasal Cannula 6.0 02/14/17 23:33 36.5 85 22 100/62 (75) 88 Nasal Cannula 6.0 Laboratory Results Last 24 Hours Test 02/15/17 07:06 White Blood Count 13.88 K/uL Red Blood Count 3.47 M/uL Hemoglobin 11.2 g/dL Hematocrit 34.2 % Mean Corpuscular Volume 98.6 fL Mean Corpuscular Hemoglobin 32.3 pg Mean Corpuscular Hemoglobin Concent 32.7 g/dl RDW Standard Deviation 56.7 fL RDW Coefficient of Variation 15.7 % Platelet Count 214 K/uL Mean Platelet Volume 9.8 fL Sodium Level 140 mmol/L Potassium Level 4.4 mmol/L Chloride Level 107 mmol/L Carbon Dioxide Level 25 mmol/L Anion Gap 8.0 mmol/L Blood Urea Nitrogen 4 mg/dl Creatinine 0.59 mg/dl Est Creatinine Clear Calc Drug Dose 71.8 ml/min Estimated GFR () 118.9 Estimated GFR (Non- 102.6 BUN/Creatinine Ratio 6.1 Random Glucose 91 mg/dl Calcium Level 8.1 mg/dl Phosphorus Level 3.1 mg/dl Magnesium Level 2.1 mg/dl Mental Examination During interview pt is: other (disoriented, cachectic) Appearance: disheveled Motor behavior is: no abnormal motor movements Speech: other (dysarthric) Affect: constricted Mood is: other ("don't know") Thought process: other (disorganzied) Thought content: other (unable to assess) Suicidal thought are: denied Homicidal thoughts are: denied Hallucinations: other (did not appear to be responding to internal stimuli) Cognition: other (impaired) Insight: impaired Judgement: impaired Impression / Recommendations Impression 71 yo male s/p fall, poor PO on blue line trimmer Celexa rx for depression reactive to cancer treatment. Per son and MSE has become increasingly confused while hospitalized and although VSS, certainly risk of ETOH withdrawal given daily ETOH use. Recommendations certainly depression can contribute to poor po intake, son would support d/c Celexa in favor of Remeron trial. Will d/c Celexa and team to discuss timing of Remeon trial with primary team. May need standing benzos or temporary adjustment of neurontin for withdrawal.
[2017-02-15] MEDS: CHOLESTYRAMINE LIGHT 4 GM PKT PO SCH (10:00)
[2017-02-15] MEDS: FINASTERIDE 5 MG TAB PO SCH (10:28)
[2017-02-15] MEDS: GABAPENTIN 100 MG CAP PO SCH ×2 (10:28→13:47)
[2017-02-15] MEDS: POT PHOSPHATE MONOBASIC W/ SOD TAB PO SCH ×2 (10:28→13:48)
[2017-02-15] MEDS: NYSTATIN SUSP 500,000 U/5 ML UDC PO SCH ×4 (10:29→21:23)
[2017-02-15] MEDS: ENOXAPARIN 30 MG/0.3 ML SYR SQ SCH (10:29)
[2017-02-15] MEDS: THIAMINE HCL 100 MG TAB PO SCH (10:30)
[2017-02-15] MEDS: RASPBERRY SYRUP 5 ML UDP PO SCH ×2 (10:32→13:47)
[2017-02-15] MEDS: PANTOprazole SOD 40 MG TAB PO SCH (10:33)
[2017-02-15] MEDS: VANCOMYCIN HCL 250 MG/5 ML SOLN PO SCH ×2 (10:33→13:47)
--- NOTE | 2017-02-15 13:21 | Palliative Care Consultation ---
Consultation Date of Consultation: Feb 15, 2017. Requesting Physician: Dr. Cavanaugh Attending Physician: Dr. Trammell, Dr. Sam Reason for Consultation: Goals of care History of Present Illness This 71 year old male patient presented to the ED five days ago with c/o fall and weakness. The patient himself is quite a poor historian, history taken from record. Apparently the patient had fallen at home when transferring to the toilet and was found by his son about 8 hours later. 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 Patient admitted with rhabdomyolysis with total CK of >1500, severe hypokalemia likely secondary to GI loss due to recurrent C. diff, cachexia/weight loss/malnutrition, C. diff, urinary retention , hypothyroidism, hypoxia/hypercarbia with untreated COPD, and alcoholism. Patient also experiencing dysphagia- seen by speech therapy and recommending nectar thickened liquids and pureed food. Patient have urinary retention- andino catheter placed. Also now with ischemic cardiomyopathy with an EF of 25-30%. Likely had an interim infarction from last echo which was in 2002. Patient is being followed by pulmonology, urology, GI, psychiatry and cardiology. He continues to have diarrhea and has not been getting out of bed or eating much. Patient's son, Rickie, also voiced concerns that patient is unable to really care for himself at home, drinks alcohol every night and really has had major decline and weight loss. Palliative care consulted to discuss goals of care. I met with the patient in room 279. He is drowsy, but oriented x3. Poor historian and forgetful. He denies any pain, discomfort or SOB at his time. He really has no knowledge of his medical conditions. We did discuss code status- patient would like to be level 5 DNR. Patient does agree that he would like to avoid invasive medical procedures, but he is okay with the care he is currently receiving. Really unable to discuss any further goals of care. He gave permission for me to call and discuss with his son, Rickie Mahmood IV. I will be meeting the son today at 2pm. Met with patient's son, Rickie. He is also POA. We discussed patient's condition. Rickie states that the patient has been battling this C. diff for a year and has failed several treatment regimens. Patient has been losing weight and hardly eats at home. Rickie said, "My dad's had a hard life. He smokes, he drinks. I know he wouldn't want to live like this." The patient has a very poor quality of life, especially in the last 3 weeks, as he has had a major decline and really isn't even able to get out of bed. Rickie states that he would like to pursue comfort measures only at this point given that the patient has had no improvement despite treatment and even has declined further. We discussed and filled out a POLST. See plan below. Past Medical/Surgical History Medical History: as above Social History Smoking Status: Current Every Day Smoker History of Alcohol Use: No Drug Use: none Marital Status: single Housing Status: lives alone Occupation Status: disabled Review of Systems Constitutional: + weakness ENT: No trouble swallowing (patient denies despite coughing) Respiratory: + dyspnea on exertion, No shortness of breath Cardiac: No chest pain, No edema Abdomen: + diarrhea, No pain, No nausea, No vomiting Psychiatric: + depression symptoms (per psych report) Allergies Coded Allergies: No Known Allergies (Verified , 01/07/17) Medications Current Inpatient Medications Medications (Trade) Dose Ordered Sig/Sebastian Route Start Time Stop Time Status Last Admin Dose Admin Gabapentin (Neurontin Cap) 200 mg TID PO 02/10/17 09:00 03/12/17 08:59 02/15/17 10:28 200 MG Acetaminophen (Tylenol Tab) 650 mg Q4H PRN PO 02/10/17 02:00 03/12/17 01:59 02/14/17 13:19 650 MG Al Hydrox/Mg Hydrox/Simethicone (Maalox Max Susp) 15 ml Q4H PRN PO 02/10/17 02:00 03/12/17 01:59 Ondansetron HCl (Zofran Inj) 4 mg Q6H PRN IV 02/10/17 02:00 03/12/17 01:59 Thiamine HCl (Vitamin B-1 Tab) 100 mg QAM PO 02/10/17 09:00 03/12/17 08:59 02/15/17 10:30 100 MG Vancomycin HCl (Vancomycin Oral Soln) 250 mg QID PO 02/10/17 09:00 02/24/17 08:59 02/15/17 10:33 250 MG Finasteride (Proscar Tab) 5 mg QAM PO 02/10/17 09:00 03/12/17 08:59 02/15/17 10:28 5 MG Raspberry (Raspberry Syrup 5ml Cup) 5 ml QID PO 02/10/17 09:00 02/24/17 08:59 02/15/17 10:32 5 ML Levothyroxine Sodium (Synthroid Tab) 25 mcg SuTuThSa@0630 PO 02/11/17 06:30 03/13/17 06:29 02/14/17 06:31 25 MCG Folic Acid (Folvite Tab) 1 mg QAM PO 02/11/17 09:00 03/13/17 08:59 02/15/17 10:31 1 MG Levothyroxine Sodium (Synthroid Tab) 50 mcg MoWeFr@0630 PO 02/12/17 06:30 03/14/17 06:29 02/15/17 06:21 50 MCG Arformoterol Tartrate (Brovana 15MCG/ 2ML Neb Soln) 15 mcg BIDR INH 02/10/17 20:00 03/12/17 19:59 02/15/17 07:24 15 MCG Albuterol Sulfate (Ventolin 0.083% 2.5MG/3ML Neb) 2.5 mg Q6R PRN INH 02/10/17 14:45 03/12/17 14:44 02/14/17 23:49 2.5 MG Ipratropium [place] (Atrovent 0.02% 0.5MG/2.5ML Neb) 0.5 mg Q6R INH 02/10/17 21:00 03/12/17 20:59 02/15/17 02:00 0.5 MG Levalbuterol (Xopenex 1.25MG/ 0.5ML Neb) 1.25 mg Q6R INH 02/10/17 21:00 03/12/17 20:59 02/15/17 02:00 1.25 MG Enteral Nutritional Formula (Boost Plus Vanilla) 1 can TIDM PO 02/11/17 08:00 03/13/17 07:59 02/14/17 09:08 1 CAN Pantoprazole Sodium (Protonix Tab) 40 mg QAM PO 02/11/17 09:00 03/13/17 08:59 02/15/17 10:33 40 MG Potassium/ Phosphorus/Sodium (Phospha 250 Neutral 155-852-130 Mg) 1 tab QID PO 02/12/17 17:00 03/14/17 16:59 02/15/17 10:28 1 TAB Cholestyramine Resin (Questran Powder Light) 4 gm BID@ PO 02/12/17 22:00 03/14/17 21:59 02/14/17 22:36 4 GM Vancomycin HCl (Vancomycin Enema) 250 mg Q6 [place] 02/12/17 18:00 02/26/17 17:59 02/15/17 06:21 250 MG Tamsulosin HCl (Flomax Cap) 0.4 mg HS PO 02/13/17 21:00 03/15/17 20:59 02/14/17 20:41 0.4 MG Enoxaparin Sodium (Lovenox Inj) 30 mg DAILY SQ 02/13/17 09:00 03/15/17 08:59 02/15/17 10:29 30 MG Nystatin (Mycostatin Susp) 5 ml QID PO 02/13/17 21:00 02/23/17 20:59 02/15/17 10:29 5 ML Physical Exam Date Time Temp Pulse Resp B/P (MAP) Pulse Ox O2 Delivery O2 Flow Rate FiO2 02/15/17 08:00 Oxymask 13.0 02/15/17 07:48 36.6 84 16 98/63 (75) 91 Mask 12.0 02/15/17 07:25 86 22 90 Mask 12.0 02/15/17 04:00 Oxymask 13.0 02/15/17 04:00 36.5 87 20 113/71 (85) 90 02/15/17 02:12 102/69 (80) 02/15/17 02:00 88 20 88 Mask 10.0 02/15/17 00:00 Nasal Cannula 4.0 02/14/17 23:50 94 Oxymask 10.0 02/14/17 23:49 87 20 87 Nasal Cannula 6.0 02/14/17 23:33 36.5 85 22 100/62 (75) 88 Nasal Cannula 6.0 02/14/17 20:09 36.1 83 20 100/63 (75) 90 Nasal Cannula 4.0 02/14/17 20:00 Nasal Cannula 4.0 02/14/17 19:10 88 20 91 Nasal Cannula 4.0 02/14/17 16:00 Nasal Cannula 4.0 02/14/17 14:50 36.5 80 18 103/62 (76) 90 Nasal Cannula 4.0 02/14/17 12:00 89 Nasal Cannula 4.0 General Appearance: no apparent distress, + cachetic, + thin Neck: supple, no JVD Respiratory: no respiratory distress, no accessory muscle use, + decreased breath sounds, + pertinent finding (13L o2 mask) Cardiovascular: regular rate, rhythm, + pertinent finding (very weak right pedal pulse, left AKA) Abdomen: normal bowel sounds, non tender, soft Musculoskeletal: pertinent finding (right lower extremity with dark purple discoloration- PAD) Neurologic/Psychiatric: normal mood/affect, oriented x 3, + pertinent finding ( forgetful and drowsy) Laboratory Results Last 24 Hours Test 02/15/17 07:06 White Blood Count 13.88 K/uL Red Blood Count 3.47 M/uL Hemoglobin 11.2 g/dL Hematocrit 34.2 % Mean Corpuscular Volume 98.6 fL Mean Corpuscular Hemoglobin 32.3 pg Mean Corpuscular Hemoglobin Concent 32.7 g/dl RDW Standard Deviation 56.7 fL RDW Coefficient of Variation 15.7 % Platelet Count 214 K/uL Mean Platelet Volume 9.8 fL Sodium Level 140 mmol/L Potassium Level 4.4 mmol/L Chloride Level 107 mmol/L Carbon Dioxide Level 25 mmol/L Anion Gap 8.0 mmol/L Blood Urea Nitrogen 4 mg/dl Creatinine 0.59 mg/dl Est Creatinine Clear Calc Drug Dose 71.8 ml/min Estimated GFR () 118.9 Estimated GFR (Non- 102.6 BUN/Creatinine Ratio 6.1 Random Glucose 91 mg/dl Calcium Level 8.1 mg/dl Phosphorus Level 3.1 mg/dl Magnesium Level 2.1 mg/dl Assessment & Plan Palliative Performance Scale: 30 % Problem list: Weakness/ambulatory dysfunction- s/p fall at home Weight loss/cachexia/malnutrition Low BMI Dysphagia SOB Hypoxia/hypercarbia COPD Ischemic cardiomyopathy Acute anemia Acute and recurrent C. diff Rhabdomyolysis Alcohol abuse Tobacco abuse PAD Paraphimosis and urinary retention Palliative care recommendations: -DNR/DNI as discussed with the patient, his son Rickie, Dr. Trammell, and Dr. Sam. -POLST form as follows: DNR, comfort measures only, no antibiotics, no artificial hydration/nutrition. -Discussed C. diff treatment- son would like to discontinue as the patient has failed treatment for a year and does not like receiving the vanco enemas. -Allow comfort feeding as long as patient is able. -Continue Andino catheter -Would continue nystatin, Synthroid, nebs PRN, and neurontin. Psych note states a trial of Remeron may be started- will defer to primary medical. Would say to continue Questran, but patient is refusing. -Wean oxygen down to 6LNC as tolerated by patient. -Start Roxanol 5mg PO Q3h PRN pain or SOB. Lorazepam 1mg PO SL Q6H prn agitation /anxiety. Has had no signs of alcohol withdrawal to my knowledge. -Ondansetron 4mg SL Q6h PRN nausea. -Plan for SNF. Might be skilled initially but the goal is for hospice care/[facility] as reflected on POLST. travel manager is following. -Transfer out of telemetry. Thank you kindly for this consult. Please contact me with any further palliative care needs.
[2017-02-15] MEDS: ACETAMINOPHEN 325 MG TAB PO PRN (13:49)
[2017-02-15 14:33] VITALS: PULSE 88; O2SAT 91
--- NOTE | 2017-02-15 14:34 | Pulmonology Progress Note ---
Pulmonary Progress Note Date of Service Feb 15, 2017. Attending Dr. Crooks Subjective Denies pain, dyspnea or cough. Objective 71-yo male admitted 02/09/17 admitted with dehydration and rhabdomyolysis s/p fall. PMHx includes: h/o recurrent clostridium difficile, failure to thrive, alcohol abuse, left AKA (2013 -revision 2014 - wound enterococcus aerogenes), UTI ( enterococcus), SCC - tongue, h/o PE/DVT ( dx 01/2016, AC d/c 11/2016), h/o thyroid CA with persistent vocal hoarseness post-op, - hypothyroid, hiatal hernia, BPH, tobacco: 100+ pack year. Patient admitted post fall with rhabdomyolysis and severe hypokalemia. In the ER ABG consistent with CO2 retention: 7.34/56/249-8L/29. W/U notable for CTA consistent with pulmonary emphysema - no clot. Additional findings notable paraphimosis and urinary retention requiring indwelling catheter as well as for aspiration (on nectar thickened liquid), episode of ventricular tachycardia, esophageal stenosis, and gastritis s/p EGD and dilation by GI 02/11/17. Stool + c. diff and echocardiogram (as below) consistent with prior TX with reduced EF. Echocardiogram 02/13/17: Grade II diastolic dysfunction. EF 25-30% with akinesis in LAD distribution. Today: - WBC: 13.88, Hgb/Hct: 11.2/34.2, Plts: 214 - Cr: 0.59 - Afebrile, soft BP, increased O2 needs - Seen by palliative care today Physical Exam: Constitutional: Acutely ill appearing frail male lying in hospital bed. No acute distress. Head: + facial symmetry - O2 mask in place. Eyes: EOMi, PERRLA, no conjunctival injection Neck: Trachea midline. No adenopathy or masses Respiratory: Non-labored respirations. Diminished throughout. NO audible wheeze. NO rhonchi. Cardiovascular: Regular rate. NO murmur appreciated. Warm distally. : Pappas draining dark yellow urine. MSK/Extremities: Muscle wasting. S/P L-AKA No calf tenderness. Neurologic: A&O, data recall in-tact. Appropriate affect. Assessment & Plan 71-yo male admitted acutely with multisystem decompensation including dehydration/c.diff colitis, rhabdomyolysis, hypokalemia, urinary retention, cachexia, ischemic cardiomyopathy, Co2-retention and pulmonary emphysema, hypothyroid, esophageal stricture, depression, and aspiration. - At this time would continue primary use of pulmonary medications in the nebulized form: Brovana and Q6 levalbuterol-ipratropium - scheduled - Increased O2 need: CXR Patient and case reviewed and I agree with the plan. Data Medications: Current Inpatient Medications Medications (Trade) Dose Ordered Sig/Sebastian Route Start Time Stop Time Status Last Admin Dose Admin Gabapentin (Neurontin Cap) 200 mg TID PO 02/10/17 09:00 03/12/17 08:59 02/15/17 13:47 200 MG Acetaminophen (Tylenol Tab) 650 mg Q4H PRN PO 02/10/17 02:00 03/12/17 01:59 02/15/17 13:49 650 MG Al Hydrox/Mg Hydrox/Simethicone (Maalox Max Susp) 15 ml Q4H PRN PO 02/10/17 02:00 03/12/17 01:59 Ondansetron HCl (Zofran Inj) 4 mg Q6H PRN IV 02/10/17 02:00 03/12/17 01:59 Thiamine HCl (Vitamin B-1 Tab) 100 mg QAM PO 02/10/17 09:00 03/12/17 08:59 02/15/17 10:30 100 MG Vancomycin HCl (Vancomycin Oral Soln) 250 mg QID PO 02/10/17 09:00 02/24/17 08:59 02/15/17 13:47 250 MG Finasteride (Proscar Tab) 5 mg QAM PO 02/10/17 09:00 03/12/17 08:59 02/15/17 10:28 5 MG Raspberry (Raspberry Syrup 5ml Cup) 5 ml QID PO 02/10/17 09:00 02/24/17 08:59 02/15/17 13:47 5 ML Levothyroxine Sodium (Synthroid Tab) 25 mcg SuTuThSa@0630 PO 02/11/17 06:30 03/13/17 06:29 02/14/17 06:31 25 MCG Folic Acid (Folvite Tab) 1 mg QAM PO 02/11/17 09:00 03/13/17 08:59 02/15/17 10:31 1 MG Levothyroxine Sodium (Synthroid Tab) 50 mcg MoWeFr@0630 PO 02/12/17 06:30 03/14/17 06:29 02/15/17 06:21 50 MCG Arformoterol Tartrate (Brovana 15MCG/ 2ML Neb Soln) 15 mcg BIDR INH 02/10/17 20:00 03/12/17 19:59 02/15/17 07:24 15 MCG Albuterol Sulfate (Ventolin 0.083% 2.5MG/3ML Neb) 2.5 mg Q6R PRN INH 02/10/17 14:45 03/12/17 14:44 02/14/17 23:49 2.5 MG Ipratropium [place] (Atrovent 0.02% 0.5MG/2.5ML Neb) 0.5 mg Q6R INH 02/10/17 21:00 03/12/17 20:59 02/15/17 02:00 0.5 MG Levalbuterol (Xopenex 1.25MG/ 0.5ML Neb) 1.25 mg Q6R INH 02/10/17 21:00 03/12/17 20:59 02/15/17 02:00 1.25 MG Enteral Nutritional Formula (Boost Plus Vanilla) 1 can TIDM PO 02/11/17 08:00 03/13/17 07:59 02/14/17 09:08 1 CAN Pantoprazole Sodium (Protonix Tab) 40 mg QAM PO 02/11/17 09:00 03/13/17 08:59 02/15/17 10:33 40 MG Potassium/ Phosphorus/Sodium (Phospha 250 Neutral 155-852-130 Mg) 1 tab QID PO 02/12/17 17:00 03/14/17 16:59 02/15/17 13:48 1 TAB Cholestyramine Resin (Questran Powder Light) 4 gm BID@ PO 02/12/17 22:00 03/14/17 21:59 02/14/17 22:36 4 GM Vancomycin HCl (Vancomycin Enema) 250 mg Q6 [place] 02/12/17 18:00 02/26/17 17:59 02/15/17 06:21 250 MG Tamsulosin HCl (Flomax Cap) 0.4 mg HS PO 02/13/17 21:00 03/15/17 20:59 02/14/17 20:41 0.4 MG Enoxaparin Sodium (Lovenox Inj) 30 mg DAILY SQ 02/13/17 09:00 03/15/17 08:59 02/15/17 10:29 30 MG Nystatin (Mycostatin Susp) 5 ml QID PO 02/13/17 21:00 02/23/17 20:59 02/15/17 13:48 5 ML I & O: 24-Hour Column 02/16/17 08:00 Output Total 100 ml Balance -100 ml Vital Signs: Date Time Temp Pulse Resp B/P (MAP) Pulse Ox O2 Delivery O2 Flow Rate FiO2 02/15/17 08:00 Oxymask 13.0 02/15/17 07:48 36.6 84 16 98/63 (75) 91 Mask 12.0 02/15/17 07:25 86 22 90 Mask 12.0 02/15/17 04:00 Oxymask 13.0 02/15/17 04:00 36.5 87 20 113/71 (85) 90 02/15/17 02:12 102/69 (80) 02/15/17 02:00 88 20 88 Mask 10.0 02/15/17 00:00 Nasal Cannula 4.0 02/14/17 23:50 94 Oxymask 10.0 02/14/17 23:49 87 20 87 Nasal Cannula 6.0 02/14/17 23:33 36.5 85 22 100/62 (75) 88 Nasal Cannula 6.0 02/14/17 20:09 36.1 83 20 100/63 (75) 90 Nasal Cannula 4.0 02/14/17 20:00 Nasal Cannula 4.0 02/14/17 19:10 88 20 91 Nasal Cannula 4.0 02/14/17 16:00 Nasal Cannula 4.0 02/14/17 14:50 36.5 80 18 103/62 (76) 90 Nasal Cannula 4.0 Laboratory Results: Last 24 Hours Test 02/15/17 07:06 White Blood Count 13.88 K/uL Red Blood Count 3.47 M/uL Hemoglobin 11.2 g/dL Hematocrit 34.2 % Mean Corpuscular Volume 98.6 fL Mean Corpuscular Hemoglobin 32.3 pg Mean Corpuscular Hemoglobin Concent 32.7 g/dl RDW Standard Deviation 56.7 fL RDW Coefficient of Variation 15.7 % Platelet Count 214 K/uL Mean Platelet Volume 9.8 fL Sodium Level 140 mmol/L Potassium Level 4.4 mmol/L Chloride Level 107 mmol/L Carbon Dioxide Level 25 mmol/L Anion Gap 8.0 mmol/L Blood Urea Nitrogen 4 mg/dl Creatinine 0.59 mg/dl Est Creatinine Clear Calc Drug Dose 71.8 ml/min Estimated GFR () 118.9 Estimated GFR (Non- 102.6 BUN/Creatinine Ratio 6.1 Random Glucose 91 mg/dl Calcium Level 8.1 mg/dl Phosphorus Level 3.1 mg/dl Magnesium Level 2.1 mg/dl
--- NOTE | 2017-02-15 15:36 | Family Medicine Progress Note ---
Progress Note Date of Service Feb 15, 2017. Subjective Pt evaluation today including: conversation w/ patient, conversation w/ family , physical exam, chart review, lab review, review of studies Pain: 0/10 PO Intake: poor Voiding: andino catheter in place Patient states that he is not in any pain. Continues to refuse any food. He is oriented. Discussed case with palliative and after meeting with son at 2pm the plan for comfort care will be initiated Unable to obtain a meaningful ROS Medications Medications Administered Medications (Trade) Dose Ordered Sig/Sebastian Route Start Time Stop Time Status Last Admin Dose Admin Sodium Chloride 500 ml @ 999 mls/hr Q31M STAT IV 02/09/17 21:56 02/09/17 22:26 DC 02/09/17 22:09 999 MLS/HR Albuterol/ Ipratropium (Duoneb) 12 ml ONE ONCE INH 02/09/17 22:30 02/09/17 22:31 DC 02/09/17 23:38 12 ML Sodium Chloride 1,000 ml @ 999 mls/hr Q1H1M STAT IV 02/09/17 23:30 02/10/17 00:30 DC 02/09/17 00:20 999 MLS/HR Hydromorphone HCl (Dilaudid Inj) 0.5 mg NOW STAT IV 02/09/17 23:39 02/09/17 23:40 DC 02/10/17 00:14 0.5 MG Ondansetron HCl (Zofran Inj) 4 mg NOW STAT IV 02/09/17 23:39 02/09/17 23:41 DC 02/10/17 00:14 4 MG Metoclopramide HCl (Reglan Inj) 10 mg NOW STAT IV 02/10/17 00:42 02/10/17 00:44 DC 02/10/17 02:11 10 MG Magnesium Sulfate (Magnesium Sulfate) 1 gm NOW STAT IV 02/10/17 00:57 02/10/17 00:58 DC 02/10/17 02:11 1 GM Citalopram Hydrobromide (celeXA TAB) 20 mg QAM PO 02/10/17 09:00 02/15/17 09:57 DC 02/14/17 09:12 20 MG Gabapentin (Neurontin Cap) 200 mg TID PO 02/10/17 09:00 02/15/17 14:56 DC 02/15/17 13:47 200 MG Levothyroxine Sodium (Synthroid Tab) 50 mcg DAILYBB PO 02/10/17 06:30 02/10/17 11:10 DC 02/10/17 06:26 50 MCG Acetaminophen (Tylenol Tab) 650 mg Q4H PRN PO 02/10/17 02:00 03/12/17 01:59 02/15/17 13:49 650 MG Potassium Chloride 10 meq/ Prmx 100 ml @ 100 mls/hr Q1H IV 02/10/17 04:30 02/10/17 08:29 DC 02/10/17 08:51 100 MLS/HR Thiamine HCl (Vitamin B-1 Tab) 100 mg QAM PO 02/10/17 09:00 02/15/17 14:56 DC 02/15/17 10:30 100 MG Potassium Chloride/Dextrose/ Sod Cl 1,000 ml @ 150 mls/hr Q6H40M IV 02/10/17 04:30 02/11/17 00:29 DC 02/10/17 22:12 150 MLS/HR Vancomycin HCl (Vancomycin Oral Soln) 250 mg QID PO 02/10/17 09:00 02/15/17 14:56 DC 02/15/17 13:47 250 MG Metronidazole 500 mg/Prmx 100 ml @ 100 mls/hr Q8H IV 02/10/17 05:00 02/12/17 16:25 DC 02/12/17 13:24 100 MLS/HR Potassium Chloride (Kcl 10 Meq / Wtr) 20 meq STK-MED ONCE IV 02/10/17 02:32 02/10/17 02:33 DC 02/10/17 02:37 20 MEQ Finasteride (Proscar Tab) 5 mg QAM PO 02/10/17 09:00 02/15/17 14:56 DC 02/15/17 10:28 5 MG Enteral Nutritional Formula (Boost) 1 can TIDM PO 02/10/17 08:00 02/10/17 17:04 DC 02/10/17 07:42 1 CAN Raspberry (Raspberry Syrup 5ml Cup) 5 ml QID PO 02/10/17 09:00 02/15/17 14:56 DC 02/15/17 13:47 5 ML Levothyroxine Sodium (Synthroid Tab) 25 mcg SuTuThSa@0630 PO 02/11/17 06:30 02/15/17 14:56 DC 02/14/17 06:31 25 MCG Folic Acid (Folvite Tab) 1 mg QAM PO 02/11/17 09:00 02/15/17 14:56 DC 02/15/17 10:31 1 MG Folic Acid (Folvite Tab) 1 mg 1130 ONCE PO 02/10/17 11:30 02/10/17 11:31 DC 02/10/17 11:41 1 MG Levothyroxine Sodium (Synthroid Tab) 50 mcg MoWeFr@0630 PO 02/12/17 06:30 02/15/17 14:56 DC 02/15/17 06:21 50 MCG Potassium Chloride 10 meq/ Prmx 100 ml @ 100 mls/hr Q1H IV 02/10/17 13:30 02/10/17 17:29 DC 02/10/17 17:14 100 MLS/HR Potassium Phosphate 15 mmol/ Sodium Chloride 255 ml @ 102 mls/hr TODAY@1345 IV 02/10/17 13:45 02/10/17 17:29 DC 02/10/17 15:05 102 MLS/HR Arformoterol Tartrate (Brovana 15MCG/ 2ML Neb Soln) 15 mcg BIDR INH 02/10/17 20:00 02/15/17 14:56 DC 02/15/17 07:24 15 MCG Albuterol Sulfate (Ventolin 0.083% 2.5MG/3ML Neb) 2.5 mg Q6R PRN INH 02/10/17 14:45 02/15/17 14:56 DC 02/14/17 23:49 2.5 MG Ipratropium [place] (Atrovent 0.02% 0.5MG/2.5ML Neb) 0.5 mg Q6R INH 02/10/17 21:00 02/15/17 14:56 DC 02/15/17 14:32 0.5 MG Levalbuterol (Xopenex 1.25MG/ 0.5ML Neb) 1.25 mg Q6R INH 02/10/17 21:00 02/15/17 14:56 DC 02/15/17 14:32 1.25 MG Enteral Nutritional Formula (Boost Plus Vanilla) 1 can TIDM PO 02/11/17 08:00 02/15/17 14:56 DC 02/14/17 09:08 1 CAN Pantoprazole Sodium (Protonix Tab) 40 mg QAM PO 02/11/17 09:00 02/15/17 14:56 DC 02/15/17 10:33 40 MG Potassium Chloride 10 meq/ Prmx 100 ml @ 100 mls/hr Q1H IV 02/10/17 20:00 02/10/17 23:59 DC 02/11/17 01:29 100 MLS/HR Potassium Phosphate 21 mmol/ Sodium Chloride 507 ml @ 145 mls/hr TODAY@0930 IV 02/11/17 09:30 02/11/17 13:00 DC 02/11/17 09:40 145 MLS/HR Potassium Chloride/Sodium Chloride 1,000 ml @ 125 mls/hr Q8H IV 02/11/17 12:30 02/13/17 17:21 DC 02/13/17 12:25 125 MLS/HR Magnesium Sulfate 1 gm/Prmx 100 ml @ 100 mls/hr TODAY@1700 ONCE IV 02/11/17 17:00 02/11/17 17:59 DC 02/11/17 17:24 100 MLS/HR Potassium/ Phosphorus/Sodium (Phospha 250 Neutral 155-852-130 Mg) 1 tab QID PO 02/12/17 17:00 02/15/17 14:56 DC 02/15/17 13:48 1 TAB Cholestyramine Resin (Questran Powder Light) 4 gm BID@10,22 PO 02/12/17 22:00 02/15/17 14:56 DC 02/14/17 22:36 4 GM Vancomycin HCl (Vancomycin Enema) 250 mg Q6 MO 02/12/17 18:00 02/15/17 14:56 DC 02/15/17 06:21 250 MG Tamsulosin HCl (Flomax Cap) 0.4 mg HS PO 02/13/17 21:00 02/15/17 14:56 DC 02/14/17 20:41 0.4 MG Enoxaparin Sodium (Lovenox Inj) 30 mg DAILY SQ 02/13/17 09:00 02/15/17 14:56 DC 02/15/17 10:29 30 MG Sodium Phosphate 21 mmol/Sodium Chloride 507 ml @ 144.857 mls/hr TODAY@1245 IV 02/13/17 12:45 02/13/17 16:14 DC 02/13/17 13:10 144.857 MLS/HR Potassium Chloride/Sodium Chloride 1,000 ml @ 75 mls/hr [id number] IV 02/13/17 18:00 02/14/17 22:29 DC 02/14/17 20:39 75 MLS/HR Nystatin (Mycostatin Susp) 5 ml QID PO 02/13/17 21:00 02/15/17 14:56 DC 02/15/17 13:48 5 ML Magnesium Sulfate 1 gm/Prmx 100 ml @ 100 mls/hr NOW ONCE IV 02/14/17 09:30 02/14/17 10:29 DC 02/14/17 09:31 100 MLS/HR Furosemide 20 mg/ Syringe 2 ml @ 4 mls/min ONE ONCE IV 02/14/17 23:30 02/14/17 23:31 DC 02/15/17 00:01 4 MLS/MIN Objective Vital Signs Date Time Temp Pulse Resp B/P (MAP) Pulse Ox O2 Delivery O2 Flow Rate FiO2 02/15/17 14:33 88 20 91 Mask 12.0 02/15/17 12:00 Oxymask 13.0 02/15/17 08:00 Oxymask 13.0 02/15/17 07:48 36.6 84 16 98/63 (75) 91 Mask 12.0 02/15/17 07:25 86 22 90 Mask 12.0 02/15/17 04:00 Oxymask 13.0 02/15/17 04:00 36.5 87 20 113/71 (85) 90 02/15/17 02:12 102/69 (80) 02/15/17 02:00 88 20 88 Mask 10.0 02/15/17 00:00 Nasal Cannula 4.0 02/14/17 23:50 94 Oxymask 10.0 02/14/17 23:49 87 20 87 Nasal Cannula 6.0 02/14/17 23:33 36.5 85 22 100/62 (75) 88 Nasal Cannula 6.0 02/14/17 20:09 36.1 83 20 100/63 (75) 90 Nasal Cannula 4.0 02/14/17 20:00 Nasal Cannula 4.0 02/14/17 19:10 88 20 91 Nasal Cannula 4.0 02/14/17 16:00 Nasal Cannula 4.0 Physical Exam General Appearance: + mild distress (agitation) Eyes: normal inspection ENT: normal ENT inspection Neck: supple Respiratory/Chest: + decreased breath sounds (throughout), + pertinent finding (mild resp distress) Cardiovascular: regular rate, rhythm, no murmur Abdomen: normal bowel sounds, non tender, soft Extremities: normal range of motion, + pertinent finding (amputee above the knee on the left, statsis dermatitis and cold right lower extremity) Neurologic/Psychiatric: alert, + depressed affect, + pertinent finding ( agitation noted) Skin: normal color, warm/dry, no rash Lymphatic: no adenopathy Laboratory Results Results Past 24 Hours Test 02/15/17 07:06 Range/Units White Blood Count 13.88 4.8-10.8 K/uL Red Blood Count 3.47 4.7-6.1 M/uL Hemoglobin 11.2 14.0-18.0 g/dL Hematocrit 34.2 42-52 % Mean Corpuscular Volume 98.6 80-100 fL Mean Corpuscular Hemoglobin 32.3 25-34 pg Mean Corpuscular Hemoglobin Concent 32.7 32-36 g/dl RDW Standard Deviation 56.7 36.4-46.3 fL RDW Coefficient of Variation 15.7 11.5-14.5 % Platelet Count 214 130-400 K/uL Mean Platelet Volume 9.8 7.4-10.4 fL Sodium Level 140 136-145 mmol/L Potassium Level 4.4 3.5-5.1 mmol/L Chloride Level 107 98-107 mmol/L Carbon Dioxide Level 25 21-32 mmol/L Anion Gap 8.0 3-11 mmol/L Blood Urea Nitrogen 4 7-18 mg/dl Creatinine 0.59 0.60-1.40 mg/dl Est Creatinine Clear Calc Drug Dose 71.8 ml/min Estimated GFR () 118.9 Estimated GFR (Non- 102.6 BUN/Creatinine Ratio 6.1 10-20 Random Glucose 91 70-99 mg/dl Calcium Level 8.1 8.5-10.1 mg/dl Phosphorus Level 3.1 2.5-4.9 mg/dl Magnesium Level 2.1 1.8-2.4 mg/dl Assessment and Plan 71 y/o male with a history of recurrent C. diff colitis, COPD, h/o alcoholism, thyroid cancer s/p thyroidectomy and hypothyroidism, BPH, depression, h/o DVT/PE , and L AKA who presents following a fall. He was on the ground for about 8 hours until he was found by his son. The patient was found to have severe hypokalemia on arrival as well as hypoxia and hypercarbia. He has been treated with vanco orally and with enemas for the recurrent C Diff. He also had an echo completed which revealed that he had severe EF ( 25-30%). As he has such low blood pressures the patient is not a candidate for medical management of the CHF and he is refusing any interventions. Multiple discussions were had regarding plans of care and it was decided that palliative care would be consulted. He will be transitioned to comfort measures. Severe Hypokalemia on admission --resolved -Potassium 2.1 on arrival and has been stable, as patient is now comfort measures will refrain from following H/o v-tach this admission 02/10 -Echo: LVEF 25-30%. Akinetic mid to apical anterior, anteroseptal and septal campos consistent with LAD distribution infarct. - As noted he is not a candidate for medical management and patient has been transitioned to comfort care Weakness/Fall/?syncope - transitioned to comfort care. Acute anemia, blood loss/melanotic stools vs dilutional -Hemoglobin dropped to 11.6 on 02/10 from 15.5 -EGD on 02/11: moderate benign intrinsic esophageal stenosis which was dilated with scope. Medium hiatal hernia. Moderate inflammation w/erosions in gastric antrum. Biopsies taken. Duodenum normal. -Gastric biopsy pathology: benign gastric mucosa w/foveolar hyperplasia. Negative for gastritis, intestinal metaplasia, dysplasia and carcinoma. No H. Pylori Hypoxia and hypercarbia on admission, h/o COPD--stable -O2 by protocol- goal is 6 L -continue duonebs with comfort measures Acute C diff colitis--stable -Patient will have abx d/c as per discussion with family H/o thyroid cancer s/p thyroidectomy, hypothyroidism -TSH low -Free T4 WNL, free T3 low -Decrease Synthroid to 25 mcg 4 times a week, 50 mcg 3 times a week - Will continue his current dose of Synthroid with comfort measures Depression/h/o alcoholism - psych input appreciated. - increase neurontin for concern of alc withdrawal. if needed will add bzd. - celexa d/ju. now on comfort measures. start remeron for comfort care. Code Status -DNR and comfort measures Patient is pending placement to SNF Continued [facility] stay due to: other Discharge planning: nursing home facility Reviewed: Pt Seen/Exam by Me History laying in bed. complained of left shoulder pain. unable to hold conversation Constitutional: denies: fever Respiratory: negative: short of breath Cardiovascular: denies chest pain Gastrointestinal/Abdominal: negative: abdominal pain General Appearance: no apparent distress (comfortable in bed) Respiratory: lungs clear, no respiratory distress Cardiovascular: regular rate, rhythm Neurologic/Psychiatric: alert, other (confused) Skin Characteristics: warm/dry Assessment/Plan I have reviewed the medical record and performed a history and physical examination of this patient today. I have discussed the case with Dr. Trammell. The above note reflects my findings, conclusions, and recommendations.
[2017-02-15] MEDS ORDERED: ALBUT/IPRATROP 3MG/0.5MG NEB 3 ML VIAL INH PRN (15:45)
[2017-02-15] MEDS: MoRPHine SULFATE 5 MG/0.25 ML UDP PO PRN (16:21)
[2017-02-15] MEDS: GABAPENTIN 250 MG/5 ML 470 ML BTL PO SCH (21:23)
[2017-02-16] MEDS ORDERED: LEVOTHYROXINE 25 MCG TAB PO SCH (06:30)
[2017-02-16] MEDS: MoRPHine SULFATE 5 MG/0.25 ML UDP PO PRN (07:45)
[2017-02-16] MEDS: NYSTATIN SUSP 500,000 U/5 ML UDC PO SCH ×2 (07:58→13:00)
[2017-02-16] MEDS: GABAPENTIN 250 MG/5 ML 470 ML BTL PO SCH ×2 (07:58→13:53)
[2017-02-16] MEDS ORDERED: MoRPHine SULFATE 5 MG/0.25 ML UDP PO SCH ×2 (09:00→11:00)
[2017-02-16] MEDS: MoRPHine SULFATE 2.5 MG/0.125 ML UDP PO SCH ×2 (11:11→15:00)
[2017-02-16] MEDS ORDERED: RMR15 PO (12:30)
[2017-02-16] MEDS ORDERED: NYSS5 PO (12:30)
[2017-02-16] MEDS ORDERED: RXNS2.5 PO (12:30)
--- NOTE | 2017-02-16 12:40 | Discharge Instructions ---
Discharge Instructions Date of Service Feb 16, 2017. Admission Reason for Admission: Hypokalemia, Rhabdomyolysis Discharge Discharge Diagnosis / Problem: failure to thrive Discharge Goals Goal(s): Decrease discomfort, Improve nutritional status, Diagnostic testing Activity Recommendations Activity Level: Up Ad Anitha . Additional Information Patient informed of condition: Yes Advance Directives: Yes DNR: Yes Level of Care: Other Communicable Disease: Yes Prognosis: Stable Instructions / Follow-Up Instructions / Follow-Up 71 y/o male with a history of recurrent C. diff colitis, COPD, h/o alcoholism, thyroid cancer s/p thyroidectomy and hypothyroidism, BPH, depression, h/o DVT/PE , and L AKA who presents following a fall. He was on the ground for about 8 hours until he was found by his son. The patient was found to have severe hypokalemia on arrival as well as hypoxia and hypercarbia. He has been treated with vanco orally and with enemas for the recurrent C Diff. He also had an echo completed which revealed that he had severe EF ( 25-30%). As he has such low blood pressures the patient is not a candidate for medical management of the CHF and he is refusing any interventions. Multiple discussions were had regarding plans of care and it was decided that palliative care would be consulted. He has been transitioned to comfort measures. Severe Hypokalemia on admission --resolved -Potassium 2.1 on arrival and has been stable, as patient is now comfort measures will refrain from following H/o v-tach this admission 02/10 -Echo: LVEF 25-30%. Akinetic mid to apical anterior, anteroseptal and septal campos consistent with LAD distribution infarct. - As noted he is not a candidate for medical management and patient has been transitioned to comfort care Acute anemia, blood loss/melanotic stools vs dilutional -Hemoglobin dropped to 11.6 on 02/10 from 15.5 -EGD on 02/11: moderate benign intrinsic esophageal stenosis which was dilated with scope. Medium hiatal hernia. Moderate inflammation w/erosions in gastric antrum. Biopsies taken. Duodenum normal. -Gastric biopsy pathology: benign gastric mucosa w/foveolar hyperplasia. Negative for gastritis, intestinal metaplasia, dysplasia and carcinoma. No H. Pylori Hypoxia and hypercarbia on admission, h/o COPD--stable -O2 by protocol- goal is 6 L -continue duonebs with comfort measures Acute C diff colitis--stable -Patient will have abx d/c as per discussion with family H/o thyroid cancer s/p thyroidectomy, hypothyroidism -TSH low -Free T4 WNL, free T3 low -Decrease Synthroid to 25 mcg 4 times a week, 50 mcg 3 times a week - Will continue this current dose of Synthroid with comfort measures Depression/h/o alcoholism - celexa d/ju. now on comfort measures. start remeron for comfort care. Code Status -DNR and comfort measures Current Hospital Diet Patient's current hospital diet: Regular Diet Discharge Diet Recommended Diet: AHA Diet (Heart Healthy), Low Sodium Diet (2gm Na) Diet Texture: Pureed (blended smooth) Procedures Procedures Performed: EGD with gastric antrum bx and mild disruption of proximal esophageal stricture with scope Pending Studies Studies pending at discharge: no Laboratory Results Lipid Panel Test 12/09/16 15:52 Range/Units Triglycerides Level 74 0-150 mg/dl Cholesterol Level 115 0-200 mg/dl HDL Cholesterol 65 mg/dl Cholesterol/HDL Ratio 1.8 LDL Cholesterol, Calculated 35 mg/dl Medical Emergencies . Who to Call and When: Medical Emergencies: If at any time you feel your situation is an emergency, please call 911 immediately. . Non-Emergent Contact Non-Emergency issues call your: Primary Care Provider . . "Provider Documentation" section prepared by Kia Trammell. . Core Measure Problem Core Measures: None [place] Drug Monitoring Program Search Results: patient reviewed within database, no issues identified
--- NOTE | 2017-02-16 13:13 | Discharge Summary ---
Discharge Summary Date of Service Feb 16, 2017. (Kia Trammell MD) Discharge Summary Admission Date: Feb 10, 2017 at 01:59 Discharge Date: Feb 16, 2017 Discharge Disposition: senior living facility Principal Diagnosis: failure to thrive Immunizations: Have You Had Influenza Vaccine: Yes Influenza Vaccine Date: Oct 07, 2009 History of Tetanus Vaccine?: Yes Tetanus Immunization Date: Mar 22, 2006 History of Pneumococcal: No History of Hepatitis B Vaccine: No (Kia Trammell MD) Medication Reconciliation New Medications: Mirtazapine (Mirtazapine) 15 Mg Tab 15 MG PO HS for 30 Days, #30 TAB Morphine Sulfate (Morphine Sulfate) 2.5 Mg/0.125 Ml Soln 2.5 MG PO Q3H for 30 Days, #30 ML Nystatin (Nystatin) 5 Ml Susp 5 ML PO QID for 30 Days, #1 PKT Continued Medications: Acetaminophen (Tylenol Arthritis Ext Rel) 650 Mg Cplt 650 MG PO BID PRN for Pain, CAP Gabapentin (Neurontin) 100 Mg Cap 200 MG PO TID, CAP Levothyroxine Sodium (Levothyroxine Sodium) 50 Mcg Tab 50 MCG PO QAM for 90 Days, #90 TAB 3 Refills Discontinued Medications: Citalopram (Citalopram Hydrobromide) 20 Mg Tab 20 MG PO QAM Discharge Exam patient declines any pain, limited ROS because of poor verbal communication. patient and son aware of d/c Physical Exam: General Appearance: no apparent distress, + cachetic Eyes: normal inspection ENT: normal ENT inspection Neck: supple Respiratory/Chest: + decreased breath sounds, + pertinent finding (coarse breath sounds throughout) Cardiovascular: regular rate, rhythm, no murmur, + pertinent finding (poor peripheral pulse on the right LE) Abdomen / GI: normal bowel sounds, non tender, soft Extremities: normal inspection, no calf tenderness, no pedal edema Neurologic/Psychiatric: + pertinent finding (slightly sedated but responding to questions and arousable ) Skin: normal color, + pertinent finding (stasis dermatitis on RIght LE ) Lymphatic: no adenopathy (Kia Tramemll MD) resting in bed. responsive but confused. unable to hold conversation Review of Systems: Constitutional: No fever Physical Exam: General Appearance: no apparent distress Respiratory/Chest: no respiratory distress, + rhonchi (occasional) Cardiovascular: regular rate, rhythm Neurologic/Psychiatric: alert Skin: warm/dry (Odette Sam M.D.) Hospital Course 71 y/o male with a history of recurrent C. diff colitis, COPD, h/o alcoholism, thyroid cancer s/p thyroidectomy and hypothyroidism, BPH, depression, h/o DVT/PE , and L AKA who presents following a fall. He was on the ground for about 8 hours until he was found by his son. The patient was found to have severe hypokalemia on arrival as well as hypoxia and hypercarbia. He has been treated with vanco orally and with enemas for the recurrent C Diff. He also had an echo completed which revealed that he had severe EF ( 25-30%). As he has such low blood pressures the patient is not a candidate for medical management of the CHF and he is refusing any interventions. Multiple discussions were had regarding plans of care and it was decided that palliative care would be consulted. He has been transitioned to comfort measures. Severe Hypokalemia on admission --resolved -Potassium 2.1 on arrival and has been stable, as patient is now comfort measures will refrain from following H/o v-tach this admission 02/10 -Echo: LVEF 25-30%. Akinetic mid to apical anterior, anteroseptal and septal campos consistent with LAD distribution infarct. - As noted he is not a candidate for medical management and patient has been transitioned to comfort care Acute anemia, blood loss/melanotic stools vs dilutional -Hemoglobin dropped to 11.6 on 02/10 from 15.5 -EGD on 02/11: moderate benign intrinsic esophageal stenosis which was dilated with scope. Medium hiatal hernia. Moderate inflammation w/erosions in gastric antrum. Biopsies taken. Duodenum normal. -Gastric biopsy pathology: benign gastric mucosa w/foveolar hyperplasia. Negative for gastritis, intestinal metaplasia, dysplasia and carcinoma. No H. Pylori Hypoxia and hypercarbia on admission, h/o COPD--stable -O2 by protocol- goal is 6 L -continue duonebs with comfort measures Acute C diff colitis--stable -Patient will have abx d/c as per discussion with family H/o thyroid cancer s/p thyroidectomy, hypothyroidism -TSH low -Free T4 WNL, free T3 low -Decrease Synthroid to 25 mcg 4 times a week, 50 mcg 3 times a week - Will continue this current dose of Synthroid with comfort measures Depression/h/o alcoholism - celexa d/ju. now on comfort measures. start remeron for comfort care. Code Status -DNR and comfort measures Total Time Spent: Less than 30 minutes This includes examination of the patient, discharge planning, medication reconciliation, and communication with other providers. (Kia Trammell MD) Resident Physician Supervision Note: I was present with Dr. Trammell in bedside. I verified the [place] history and physical, reviewed labs and image studies, discussed the case with the resident and agree with the findings and care plan. Total Time Spent: Greater than 30 minutes (35) (Odette Sam M.D.) Discharge Instructions Please refer to the electronic Patient Visit Report (Discharge Instructions) for additional information. (Kia Trammell MD) Additional Copies To [place], [place]
[2017-02-16 14:32] VITALS: BP 98/63; PULSE 88; TEMP 36.6; O2SAT 91
[2017-02-16 18:36] LABS: O&P GIARDIA AG NOT DETECTED (NOT DETECTED)
[2017-02-16] MEDS ORDERED: MIRTAZAPINE TAB 15 MG TAB PO SCH (21:00)
[2017-02-17] MEDS ORDERED: LEVOTHYROXINE 50 MCG TAB PO SCH (06:30)
== END 2017-02-16 16:10 | DRG 640 ==
LOC: EDBD 20:42 → C.EDB 20:43 → C.MED 02-10 01:59 → ENRESERV 02-10 02:22
PROVIDERS: ADMIT Internal Medicine; ATTEND Family Medicine
PROC: 0D758ZZ Dilation of Esophagus, Via Natural or Artificial Opening Endoscopic (ICD-10-PCS; principal; 2017-02-11 12:22)
PROC: 0DB68ZX Excision of Stomach, Via Natural or Artificial Opening Endoscopic, Diagnostic (ICD-10-PCS; principal; 2017-02-11 12:22)
DX: E87.6 Hypokalemia (principal); J96.02 Acute respiratory failure with hypercapnia; M62.82 Rhabdomyolysis; E44.0 Moderate protein-calorie malnutrition; I47.2 Ventricular tachycardia; A04.7 Enterocolitis due to Clostridium difficile; D62 Acute posthemorrhagic anemia; I50.43 Acute on chronic combined systolic (congestive) and diastolic (congestive) heart failure; Z89.612 Acquired absence of left leg above knee; K22.2 Esophageal obstruction; N47.1 Phimosis; Z85.850 Personal history of malignant neoplasm of thyroid; F17.200 Nicotine dependence, unspecified, uncomplicated; J44.9 Chronic obstructive pulmonary disease, unspecified; Z86.718 Personal history of other venous thrombosis and embolism; N40.1 Benign prostatic hyperplasia with lower urinary tract symptoms; Z86.711 Personal history of pulmonary embolism; E03.9 Hypothyroidism, unspecified; R33.9 Retention of urine, unspecified; R62.7 Adult failure to thrive; F10.20 Alcohol dependence, uncomplicated; I25.5 Ischemic cardiomyopathy; I25.10 Atherosclerotic heart disease of native coronary artery without angina pectoris; R13.10 Dysphagia, unspecified; E83.39 Other disorders of phosphorus metabolism; Z91.14 Patient's other noncompliance with medication regimen

== ENCOUNTER → 2017-02-10 | Day surgery (SDC) | payer OTHER ==
[2017-01-07 13:13] VITALS: Ht 172.7 cm; Wt 45.5 kg
[~2017-02-10] VITALS: Ht 172.7 cm; Wt 45.5 kg
[~2017-02-10] MED LIST changes: +ACETAMINOPHEN 325 MG TAB PO PRN; +AcetaZOLAMIDE 250 MG TAB PO SCH; +BETAXOLOL HCL 0.25% OP SUSP PER DROP CHARGE OPR SCH; +CYCLOPENTOLATE HCL 1% OP SOLN PER DROP CHARGE OPR SCH; -FINA5TAB4 PO; +LACTATED RINGER'S 1000ML 500 ML IV SCH; +LIDOCAINE 4% OP SOLN DROP CHARGE OPR SCH; +MOXIFLOXACIN OPH SOLN PER DROP CHARGE OPR SCH; +NYSS5 PO; +PHENYLEPHRINE HCL 2.5% OP SOLN PER DROP CHARGE OPR SCH; -POTA10CA28 PO; +PROPARACAINE 0.5% OP SOLN PER DROP CHARGE OPR SCH; +RMR15 PO; +RXNS2.5 PO; +TROPICAMIDE 1% OP SOLN PER DROP CHARGE OPR SCH
== END | disposition home or self-care (01) ==
LOC: EDSTATUS 09:00 → C.PAT 13:52
PROVIDERS: ATTEND Specialist
DX: H26.9 Unspecified cataract (principal)